=== PATIENT | female | born 1940 | race Caucasian/White ===

== ENCOUNTER 2016-06-19 10:09 | Emergency (ER) | payer MEDICARE, OTHER ==
[~2016-06-19] VITALS: Ht 149.9 cm; Wt 61.7 kg
[~2016-06-19 10:09] MED LIST: ACET325T9 PO; ALBU2.5V5 NEB; AMLO5TAB4 PO; AMOX1TAB11 PO; ATOR20TA PO; CEFP200T PO; DABI150C PO; DIGO0.12 PO; DIGO125T PO; FERR325T72 PO; FURO-68 PO; FURO20TA3 PO; FURO80TA3 PO; FURO80TA72 PO; GLIP5TAB10 PO; IPRA3AMP IH; LORA0.5T PO; LORA0.5T96 PO; LOSA25TA PO; METO25TA4 PO; METO25TA9 PO; NITR0.4T22 SL; PANT40TA3 PO; POTA20TA12 PO; POTA20TA4 PO; POTASSIUM CHLO10 MEQ PO; PRED-220 PO; PRED20TA PO; RANI150C PO; SERT50TA PO; SIMV10TA3 PO; TIOT18CA IH; TRAZ50TA15 PO
[2016-06-19 10:13] VITALS: BP 135/54
--- NOTE | 2016-06-19 10:40 | PHYS DOC ---
Past Medical History Past Medical History: A-Fib, Anxiety, CHF, COPD, Diabetes-Type II, High Cholesterol, Heart Disease, Hypertension, SC, MRSA Past Surgical History: Cholecystectomy, Hysterectomy, Tonsillectomy, Other Additional Past Surgical Histo: Bowel resection,Cardiac Cath with stents. Additional Information: SMOKES 1 PPD Alcohol Use: None Drug Use: None Adult General Chief Complaint Chief Complaint: LOWER BACK PAIN OR INJURY [facility] HPI Patient is a 75 year old female presents emergency Department today with complaint of low back pain for the past 2 days. 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 Patient has had previous back surgeries in the past. The last was for vertebral plasty approximately 3 years ago. Patient denies radiation of the pain. She denies saddle anesthesia or incontinence of urine and bowel. Patient denies any history of traumatic spinal column fractures or spinal cord injuries. She has no additional complaints or concerns at this time. Review of Systems Review of Systems Constitutional: Denies fever or chills [] Eyes: Denies change in visual acuity, redness, or eye pain [] HENT: Denies nasal congestion or sore throat [] Respiratory: Denies cough or shortness of breath [] Cardiovascular: No additional information not addressed in HPI [] GI: Denies abdominal pain, nausea, vomiting, bloody stools or diarrhea [] : Denies dysuria or hematuria [] Musculoskeletal: Denies back pain or joint pain [] Integument: Denies rash or skin lesions [] Neurologic: Denies headache, focal weakness or sensory changes [] Endocrine: Denies polyuria or polydipsia [] Current Medications Current Medications Current Medications Medications (Trade) Dose Ordered Sig/Karyna Start Time Stop Time Status Last Admin Dose Admin Tramadol HCl (Ultram) 50 mg 1X ONCE 06/19/16 11:15 06/19/16 11:16 DC 06/19/16 10:43 50 MG Allergies Allergies Allergies Coded Allergies Type Severity Reaction Last Updated Verified aspirin Allergy Intermediate OK with 81mg dose 06/04/15 Yes hydrocodone Allergy Intermediate tramadol ok 06/19/16 Yes iodine Allergy Intermediate 04/10/15 Yes lisinopril Allergy Intermediate 04/10/15 Yes metformin Allergy Intermediate 04/10/15 Yes I S O L A T I O N *CONTACT* Allergy Unknown 04/12/15 Yes Physical Exam Physical Exam Constitutional: Well developed, well nourished, mild distress, non-toxic appearance. Patient's heart of hearing. Patient sitting upright on the side of the bed. Patient's daughter is at the bedside with her. HENT: Normocephalic, atraumatic, bilateral external ears normal, oropharynx moist, no oral exudates, nose normal. [] Eyes: PERRLA, EOMI, conjunctiva normal, no discharge. [] Neck: Normal range of motion, no tenderness, supple, no stridor. [] Cardiovascular:Heart rate regular rhythm, no murmur [] Lungs & Thorax: Bilateral breath sounds clear to auscultation [] Abdomen: Bowel sounds normal, soft, no tenderness, no masses, no pulsatile masses. [] Skin: Warm, dry, no erythema, no rash. [] Back: Patient's back is normal in appearance without any overlying skin lesions suggestive of shingles. Chest tenderness to palpation of bilateral paraspinous soft tissues at the level of L3-S1. Patient complains of this pain is also in bilateral hips. There is no palpable defect, deformity or spasm. Extremities: No tenderness, no cyanosis, no clubbing, ROM intact, no edema. Lower extremities are without dystrophic changes. Strength is equal and symmetric bilaterally. Neurologic: Alert and oriented X 3, normal motor function, normal sensory function, no focal deficits noted. [] Psychologic: Affect normal, judgement normal, mood normal. [] Current Patient Data Vital Signs Vital Signs Date Time Temp Pulse Resp B/P Pulse Ox O2 Delivery O2 Flow Rate FiO2 06/19/16 10:43 20 Room Air 06/19/16 10:13 97.6 78 135/54 94 97.6 EKG EKG [] Radiology/Procedures Radiology/Procedures [facility] [address] [place], [place] [id number] IMAGING REPORT Signed PATIENT: ADRI LITTLE ACCOUNT: [id number] : 1940 LOCATION: ER AGE: 75 SEX: F EXAM STATUS: REG ER ORD. PHYSICIAN: ARMIN HOWE REASON: pain for 2 days after picking up an item PROCEDURE: LUMBAR SPINE 2-3V Indication pain. AP and lateral views of the lumbar spine were obtained as well as a coned view targeted to the lumbosacral junction. Note is made of a previous plain film examination 04/20/2009. Hypoplastic changes are noted at L3. Sacral plasty changes are additionally noted. There is significant compression of L1 similar to an examination 06/03/2015. A definite acute finding is not seen in the lumbar spine on plain films. Extensive vascular calcification is noted. There is chronic deformity noted associated with the right ischium. IMPRESSION: Chronic changes. No acute finding seen DICTATED and SIGNED BY: NOA MOTA MD DATE: 06/19/16 1120 CC: ARMIN HOWE; MOR MALCOLM MD; NON,STAFF ~ ] Course & Med Decision Making Course & Med Decision Making Pertinent Labs and Imaging studies reviewed. (See chart for details) [] Dragon Disclaimer Dragon Disclaimer This electronic medical record was generated, in whole or in part, using a voice recognition dictation system. Departure Departure Impression: Primary Impression: Lumbosacral strain Disposition: HOME, SELF-CARE Condition: GOOD Referrals: MOR MALCOLM MD (PCP) Patient Instructions: Lumbosacral Strain Additional Instructions: 1. The x-rays of your back today show no broken bones. There are chronic changes /arthritis. 2. Take the medication as prescribed. 3. Review the discharge instructions provided for self-care and reasons to return to the emergency department. 4. Follow-up with your primary care doctor within the next 5-7 days. Scripts Cyclobenzaprine Hcl 5 Mg Tablet5 Mg PO BID muscle relaxer #10 TAB Prov:ARMIN HOWE 06/19/16 Tramadol Hcl 50 Mg Tablet1 Tab PO PRN Q6HRS #10 TAB Prov:ARMIN HOWE 06/19/16 Problem Qualifiers Primary Impression: Lumbosacral strain Encounter type: initial encounter Qualified Code: S39.012A - Strain of muscle, fascia and tendon of lower back, initial encounter ARMIN HOWE June 19, 2016 10:40
[2016-06-19] MEDS ORDERED: traMADol 50 MG TABLET PO ONE (11:15)
--- NOTE | 2016-06-19 11:28 | RAD ---
Indication pain. AP and lateral views of the lumbar spine were obtained as well as a coned view targeted to the lumbosacral junction. Note is made of a previous plain film examination 04/20/2009. Hypoplastic changes are noted at L3. Sacral plasty changes are additionally noted. There is significant compression of L1 similar to an examination 06/03/2015. A definite acute finding is not seen in the lumbar spine on plain films. Extensive vascular calcification is noted. There is chronic deformity noted associated with the right ischium. IMPRESSION: Chronic changes. No acute finding seen
[2016-06-19] MEDS ORDERED: TRAM50TA PO (11:41)
[2016-06-19] MEDS ORDERED: CYCL5TAB PO (11:41)
[2016-07-18] MEDS ORDERED: ACET500T55 PO (10:33)
[2016-07-18] MEDS ORDERED: POTA20TA4 PO (10:33)
[2016-07-18] MEDS ORDERED: LORA0.5T96 PO (10:33)
[2016-07-18] MEDS ORDERED: SERT50TA8 PO (10:33)
== END 2016-06-19 12:03 | disposition home or self-care (01) ==
LOC: ER 10:09
DX: S39.012A Strain of muscle, fascia and tendon of lower back, initial encounter (principal); I11.0 Hypertensive heart disease with heart failure; I50.9 Heart failure, unspecified; E11.9 Type 2 diabetes mellitus without complications; E78.00 Pure hypercholesterolemia, unspecified; I48.91 Unspecified atrial fibrillation; Z86.14 Personal history of Methicillin resistant Staphylococcus aureus infection; I25.2 Old myocardial infarction; J44.9 Chronic obstructive pulmonary disease, unspecified; F41.9 Anxiety disorder, unspecified; F17.200 Nicotine dependence, unspecified, uncomplicated; Z95.5 Presence of coronary angioplasty implant and graft; Z90.49 Acquired absence of other specified parts of digestive tract; Z90.710 Acquired absence of both cervix and uterus; Z88.6 Allergy status to analgesic agent; Z88.5 Allergy status to narcotic agent; Z91.041 Radiographic dye allergy status; Z88.8 Allergy status to other drugs, medicaments and biological substances
CPT/HCPCS: 72100; 99284

== ENCOUNTER → 2016-06-28 | Outpatient (CLI) | payer MEDICARE, OTHER ==
[2016-06-19 10:13] VITALS: BP 135/54
[~2016-06-28] MED LIST changes: +CYCL5TAB PO; -NITR0.4T22 SL; +NITR0.4T6 SL; +TRAM50TA PO
--- NOTE | 2016-06-28 16:42 | RAD ---
PROCEDURE MRI lumbar spine without contrast HISTORY Chronic low back pain TECHNIQUE Multiplanar, multi sequential non contrast MR imaging was performed of the lumbar spine. COMPARISON There is no previous MRI lumbar spine exam available, correlation made with June 03, 2015 CT exam FINDINGS There again has been vertebroplasty at L3. There is again old superior L1 compression fracture with osseous retropulsion of the superior margin, mild indentation upon the ventral thecal sac. There is acute T11 compression fracture with associated edema signified by STIR hyperintense and T1 hypointense signal, negligible osseous retropulsion without significant spinal stenosis. There is moderate narrowing greater posteriorly of the L5-S1 intervertebral disc space. Conus terminates at L1-2. There is diffuse irregularity of the abdominal aorta. There is diffuse nonspecific edema of the posterior subcutaneous fat of the lower back, no defined focal fluid collection in this region. Right kidney is very atrophic with cortical thinning. T12-L1: Osseous retropulsion of L1 slightly indents the ventral thecal sac. Spinal canal is not significantly narrowed. There is mild buckling of the ligamentum flavum. Neural foramina are adequate. L1-L2: There is mild buckling of the ligamentum flavum. There is negligible bulge. Neural foramina and spinal canal are adequate. L2-3: There is mild facet degenerative change and buckling of the ligamentum flavum. There is minimal disc osteophyte complex in the inferior left neural foramen. Neural foramina are adequate. There is mild narrowing of the far lateral recesses greater on the left. L3-4: There is left laminectomy defect. Spinal canal is adequate. There is again severe narrowing of the neural foramina bilaterally greater on the left. Spinal canal is adequate. L4-5: There is mild buckling of the ligamentum flavum. There is mild narrowing of the far lateral recesses. There is mild narrowing of the left neural foramen. L5-S1: There is mild to moderate buckling of the ligamentum flavum. There is minimal posterior bulge. There is mild narrowing of the far lateral recesses bilaterally greater on the right. There is mild to moderate right and mild left neural foramina compromise. There has been right sacroplasty. IMPRESSION 1. There is acute superior T11 compression fracture, negligible osseous retropulsion without spinal stenosis. There are old fractures of L3 and L1 as seen previously. There has been right sacroplasty and vertebroplasty at L3. 2. There is again severe narrowing of the L3-4 neural foramina greater on the left. 3. There is no significant lumbar spinal stenosis, mild lateral recess stenosis as stated. Electronically signed by: Leon Gonzalez MD (June 28, 2016 16:41:16)
== END | disposition home or self-care (01) ==
LOC: MRI 14:52
PROVIDERS: ATTEND Internal Medicine
DX: M54.5 Low back pain (principal)
CPT/HCPCS: 72148

== ENCOUNTER 2016-07-17 09:41 | Observation (INO) | payer MEDICARE, OTHER ==
[~2016-07-17] VITALS: Ht 149.9 cm; Wt 59.9 kg
[~2016-07-17 09:41] MED LIST changes: +NITR0.4T22 SL; -NITR0.4T6 SL
[2016-07-17 10:31] LABS: BASO % 1 % (0-3); EOS % 3 % (0-3); HEMATOCRIT 40.1 % (36.0-47.0); HEMOGLOBIN 12.4 g/dL (12.0-15.5); LYMPH # 1.8 x10^3/uL (1.0-4.8); LYMPH % 20 % (24-48); MEAN CORPUSCULAR HEMOGLOBIN 23 pg (25-35); MEAN CORPUSCULAR HGB CONC 31 g/dL (31-37); MEAN CORPUSCULAR VOLUME 74 fL (79-100); MONO % 6 % (0-9); NEUT % 71 % (31-73); PLATELET COUNT 183 x10^3/uL (140-400); RED BLOOD COUNT 5.43 x10^6/uL (3.50-5.40); RED CELL DISTRIBUTION WIDTH 21.2 % (11.5-14.5)
[2016-07-17 10:46] LABS: INR 1.2 (0.8-1.1); PROTHROMBIN TIME PATIENT 14.8 SEC (11.7-14.0)
[2016-07-17] MEDS ORDERED: LIDOCAINE 1% / SOD BICARB 8.4% 20 ML VIAL. IJ ONE ×2 (11:08→11:50)
[2016-07-17] MEDS ORDERED: GADOBUTROL 7.5 MMOL/7.5 ML VIAL ONE (11:08)
[2016-07-17 11:11] VITALS: BP 120/69
--- NOTE | 2016-07-17 11:22 | PDOC1 ---
IR Pre-Procedure H&P-Dr. Bailey H&P Update No significant change from my IR OP consult H&P done 07/10/16. MRI T-spine completed earlier this AM---apart from T11, no additional acute thoracic compression fracture. Scheduled for T11 vertebral augmentation in IR with anesthesia late morning today. Patient has held Pradaxa as requested. CHAVO MOREAU MD July 17, 2016 11:22
[2016-07-17] MEDS ORDERED: MIDAZOLAM HCL/PF 2 MG/2 ML VIAL. ONE (11:30)
[2016-07-17] MEDS ORDERED: LIDOCAINE 2% PF Vial for OR 5 ML VIAL. ONE (11:30)
[2016-07-17] MEDS ORDERED: PROPOFOL 60 ML IV ONE (11:30)
[2016-07-17] MEDS ORDERED: KETAMINE HCL 500 MG/10 ML VIAL. ONE (11:31)
[2016-07-17] MEDS ORDERED: PHENYLEPHRINE in 0.9% NACL PF 1 MG/10 ML DISP.SYRIN. IV ONE (11:31)
--- NOTE | 2016-07-17 11:39 | RAD ---
EXAM: Thoracic spine MRI without contrast. HISTORY: Compression fracture. TECHNIQUE: Multiplanar, multisequence magnetic resonance imaging of the thoracic spine was performed without contrast. COMPARISON: 06/03/2015 FINDINGS: There is a moderate acute or subacute compression fracture of T11 with approximately 50 percent loss of vertebral body height. There is minimal retropulsion of the posterior inferior cortex into the central canal, measuring 3 mm. There is a chronic moderate to severe compression fracture of L1 with approximately 75 percent loss of anterior vertebral body height. There is 5 mm retropulsion of the cortex into the central canal, resulting in mild central canal stenosis. There is a chronic mild anterior superior endplate depression at T1, likely degenerative or the sequela of remote injury. There is no suspicious osseous lesion. There is cervical kyphosis and multilevel listhesis at the cervical levels. There is advanced degenerative endplate remodeling at all cervical levels, resulting in foraminal stenosis. This is incompletely evaluated on the current field of view. There is a small right pleural effusion. There is cardiomegaly. At T7-T8, there is a shallow posterior central disc protrusion. There is no stenosis. At T9-T10, there is a shallow left paracentral disc protrusion. There is mild facet arthropathy. There is hypertrophy of the ligament of flavum. There is mild bilateral foraminal stenosis. There is mild central canal stenosis. There is suggestion of T2 hyperintensity within the spinal cord at this level which is not confirmed on axial images and likely due to artifact rather than myelomalacia or edema. At T10-T11, there is a posterior central to left paracentral disc protrusion. There is mild facet arthropathy. There is hypertrophy of the ligament of flavum. There is mild central canal stenosis. At T11-T12, there is retropulsion of the posterior left paracentral cortex resulting in slight deformation of the ventral aspect of the spinal cord and mild central canal stenosis. There is also facet arthropathy and hypertrophy of the ligamentum flavum. IMPRESSION: 1. Moderate acute or subacute compression fracture of T11 with minimal retropulsion of the cortex into the central canal, contributing to mild central canal stenosis. 2. Moderate to severe chronic compression fracture of L1 with mild retropulsion of the cortex into the central canal, contributing to mild central canal stenosis. 3. Minimal chronic anterior superior endplate depression at T1, likely degenerative or the sequela of remote injury. 4. Multilevel degenerative changes of the thoracic spine, resulting in central canal stenosis as described above. 5. Degenerative change within the cervical spine, incompletely evaluate on the current exam. 6. Small right pleural effusion and cardiomegaly. Electronically signed by: Janel Nunez MD (07/17/2016 11:36 AM)
[2016-07-17 11:54] LABS: ANISOCYTOSIS MOD; HYPOCHROMIA MOD; OVALOCYTES PRESENT; PLT ESTIMATE ADEQUATE (ADEQUATE)
[2016-07-17] MEDS ORDERED: GADOBUTROL 7.5 MMOL/7.5 ML VIAL IV ONE (12:00)
--- NOTE | 2016-07-17 12:37 | PDOC ---
Exam Tunnel Heading Inspector Tunnel Heading Inspector Shelia Records Associate Records Associate Nathaniel Perez Pre-Procedure Diagnosis Pre-Procedure Diagnosis Recent osteoporotic T11 compression, with severe low thoracic back pain Post-Procedure Diagnosis Post-Procedure Diagnosis Same Procedure Performed Procedure Performed Fluoro guided T11 vertebral augmentation Type of Anesthesia Type of Anesthesia MAC by anesthesia Estimated Blood Loss EBL: Minimal Condition of Patient Condition of Patient Hemodynamically stable. No apparent complication. Disposition Disposition From IR to PACU. Home from PACU post recovery, if no problems. F/u with PCP. Full report to follow. CHAVO MOREAU MD July 17, 2016 12:37
[2016-07-17] MEDS ORDERED: fentaNYL PF VIAL 100 MCG/2 ML VIAL ONE (12:49)
[2016-07-17] MEDS: fentaNYL PF VIAL 100 MCG/2 ML VIAL IV PRN ×2 (12:52→13:34)
[2016-07-17] MEDS ORDERED: LIDOCAINE 1% 1 ML SYRINGE. ID PRN (13:00)
[2016-07-17] MEDS ORDERED: fentaNYL PF VIAL 100 MCG/2 ML VIAL IV PRN (13:00)
[2016-07-17] MEDS ORDERED: IV RINGERS,LACTATED 1000ML 1,000 ML IV SCH (13:00)
[2016-07-17] MEDS ORDERED: PROCHLORPERAZINE 10 MG/2 ML VIAL. IV PRN (13:00)
[2016-07-17] MEDS ORDERED: ONDANSETRON PF 4 MG/2 ML VIAL. IV PRN (13:00)
[2016-07-17] MEDS: KETOROLAC TROMETHAMINE 30 MG/ML INJ. IV PRN ×3 (14:07→17:56)
[2016-07-17 14:45] VITALS: BP 147/69
[2016-07-17 14:50] VITALS: BP 147/69
--- NOTE | 2016-07-17 15:13 | PDOC ---
Provider Note Provider Note IR Note: S/P T11 kyphoplasty---the procedure was technically uneventful, with very good filling of T11 vertebral body, without extraosseous extension of opacified cement. However, Sravani remained in significant low thoracic back pain in PACU post recovery from MAC anesthesia. Therefore, overnight observation admit for pain control was considered indicated. Dr Harvey was notified---he was willing to accept admission. Sravani was transported from PACU to [facility] in hemodynamically stable condition. IR will follow. CHAVO MOREAU MD July 17, 2016 15:13
[2016-07-17] MEDS ORDERED: NITROGLYCERIN SUBLINGUAL 0.4 MG BOTTLE OF 25. SL PRN ×2 (15:45→16:45)
[2016-07-17] MEDS ORDERED: ACETAMINOPHEN 325 MG TABLET. PO PRN ×2 (15:45→16:45)
[2016-07-17] MEDS ORDERED: MAGNESIUM HYDROXIDE 2,400 MG/30 ML ORAL.SUSP. PO PRN (15:45)
--- NOTE | 2016-07-17 15:51 | RAD ---
Fluoro guided T11 kyphoplasty Indication: 75-year-old female with recent osteoporotic T12 vertebral body compression fracture, with severe low thoracic back pain. Fluoro time: 16.1 minutes Kerma-Area Product: 21 Gycm2 Anesthesia: Mac anesthesia was provided by the department of anesthesiology. Antibiotic: A single dose of Ancef was administered within 1 hour of the procedure start time. Consent: The procedure was explained in its entirety to the patient and/or the patient's designated outside dealer sales representative by a member of the treatment team. This included a discussion of risks and benefits and commonly accepted alternatives to the procedure, as well as expected consequences of no treatment at all. Discussion of risks included, but was not limited to, those that are most frequent and those that are rare, but possibly severe or life-threatening, as well as the possibility of unforeseen complications. Sterility: All elements of maximal sterile barrier technique, hand hygiene, skin preparation, and, if ultrasound was used, sterile ultrasound technique were followed. Procedure: Informed was obtained from the patient. She was placed prone on the angiography table. Midline low thoracic spine was prepped and draped in the usual sterile fashion, utilizing all elements of maximal sterile barrier technique, as described above. Mac anesthesia was provided by the department of anesthesiology. 1 gram Ancef was given IV, prophylactically. Using aseptic technique, local anesthesia, and direct fluoroscopic guidance a 10 gauge vertebral augmentation needle was successfully introduced into anterior midline of T11 vertebral body, via unilateral right transpedicular approach. A 15 mm vertebral augmentation balloon was then coaxially introduced through the needle, and was gently inflated under fluoroscopic control, creating a pocket suitable to accept vertebral augmentation cement. The balloon was then deflated and removed. Contrast opacified polymethylmethacrylate was then very slowly and carefully introduced through the vertebral augmentation needle, using strict fluoroscopic control. There was resulting good filling of the T11 vertebral body, without significant extraosseous extravasation of opacified cement. The needle was then removed and a sterile dressing was applied. Patient tolerated the procedure well, without apparent complication. She was transported from the angiography suite to the postanesthesia care unit in stable condition. Impression: Successful, uneventful fluoro guided T11 kyphoplasty , performed via unilateral right transpedicular approach, as described.
[2016-07-17] MEDS: ALBUTEROL SULFATE 2.5 MG/3 ML NEBU. NEB SCH ×2 (16:00→19:15)
[2016-07-17 16:42] LABS: CALCIUM 8.9 mg/dL (8.5-10.1); CREATININE 1.1 mg/dL (0.6-1.0); GFR 48.2; POTASSIUM 3.9 mmol/L (3.5-5.1)
[2016-07-17] MEDS ORDERED: ANTI-COAG MONITOR BY PHARMACY. MC PRN (17:00)
--- NOTE | 2016-07-17 17:02 | PDOC ---
Provider Note Provider Note history and physical dictated # [id number] MOR MALCOLM MD July 17, 2016 17:02
[2016-07-17] MEDS: POTASSIUM CHLORIDE 20 MEQ TABLET.ER. PO SCH (18:17)
[2016-07-17] MEDS: ACETAMINOPHEN 500 MG TABLET PO SCH ×2 (18:17→22:10)
[2016-07-17 19:00] VITALS: BP 82/47
[2016-07-17] MEDS: IPRATRPIUM/ALBUTEROL 0.5/2.5MG 3 ML NEBU. NEB SCH (19:15)
--- NOTE | 2016-07-17 19:19 | HP ---
ADMIT DATE: 07/17/2016 THE PATIENT'S ROOM: 404. HISTORY OF PRESENT ILLNESS: The patient is a 75-year-old white female, who underwent a T11 kyphoplasty today by Dr. Bass for an acute/subacute T11 vertebral compression fracture. She does have a history of osteoporosis. She is complaining of back pain and MRI of the lumbar spine showed that she had an acute T11 vertebral compression fracture. She had a thoracic MRI also done today which showed no other acute fracture, besides the T11 vertebral compression fracture, but she does have thoracic spondylosis and old chronic L1 vertebral compression fracture. She tolerated the procedure well today, which was a T11 kyphoplasty, but was still complaining of pain despite receiving 25 mcg of fentanyl. She usually does not do well with narcotics or tramadol also causes delirium. At this time, during my examination, she says her pain is much better and she feels a lot better and has less back pain since of the kyphoplasty was done earlier today. She was admitted to the hospital to the observation, because of increased back pain following the procedure. ALLERGIES AND INTOLERANCES: METFORMIN, LISINOPRIL, IODINE, HYDROCODONE AND ASPIRIN. SHE ALSO HAS HAD DELIRIUM WITH TRAMADOL AND ALSO NARCOTICS. MEDICATIONS: Prior to admission include albuterol nebulizer treatments q.i.d.; albuterol inhaler 1-2 puffs every 4 hours p.r.n., when she is away from home aspirin 81 mg every day; atorvastatin 20 mg every day; Furosemide 80 mg b.i.d.; glipizide 2.5 mg every day; lorazepam 0.5 mg t.i.d.; metoprolol succinate 25 mg every day; nitroglycerin 0.4 mg sublingual p.r.n.; potassium chloride 20 mEq 1 tablet t.i.d.; Pradaxa 150 mg b.i.d., which was held 5 days before the kyphoplasty; Protonix 40 mg every day; Spiriva 1 puff every day and sertraline 50 mg every day. PAST MEDICAL HISTORY: Significant for diabetes mellitus type 2, with microalbuminuria and diabetic nephropathy. She has a history of atrial fibrillation for which she takes Pradaxa. She has diabetic nephropathy, chronic diastolic congestive heart failure, chronic respiratory failure with hypoxia and also has a history of fracture in her right ilium in the past. She does have osteoporosis. She also has hyperlipidemia, coronary artery disease, hypertension, gastroesophageal reflux disease, chronic obstructive pulmonary disease. She has had a history of left renal artery stenosis treated with the angioplasty and stent in 2010. She has left subclavian artery stenosis. She also had renal artery angioplasty and stent for right renal artery stenosis in the past. She had a right hemicolectomy for a benign tubular adenoma in 2011. She had 3 C-sections. She had a left external iliac artery angioplasty and stent in 2010, unilateral oophorectomy, cataract extraction, cholecystectomy, hysterectomy and tonsillectomy. SOCIAL HISTORY: She does not drink alcohol. She did smoke in the past, but quit. She is on oxygen 3 liters per nasal cannula continuously. REVIEW OF SYSTEMS: GENERAL: Denies any fever, chills or sweats. CARDIOVASCULAR: No chest pain. PULMONARY: No cough or shortness of breath. GASTROINTESTINAL: No constipation. SKIN: No rashes. NEUROLOGIC: No focal weakness. ENDOCRINE: She has diabetes mellitus. The rest of review of systems reviewed are negative except as stated in history of present illness. PHYSICAL EXAMINATION: VITAL SIGNS: Temperature 97.5 degrees, apical pulse is 75, respiratory rate 18, blood pressure 147/69, oxygen saturation 93% on 3 liters per nasal cannula. HEENT: Eyes: Gaze is conjugate. Extraocular muscles are intact. Mouth is symmetrical. NECK: No cervical lymphadenopathy or thyroid enlargement. HEART: Reveals an S1, S2. There is no S3 or murmur. LUNGS: Clear with decreased breath sounds. ABDOMEN: Soft, with no hepatosplenomegaly, masses or tenderness. BACK: Examination of her back shows a dry dressing over the area that she had a T11 kyphoplasty. EXTREMITIES: Lower extremities without edema. SKIN: No rashes. NEUROLOGIC: Revealed no facial weakness. Lower extremities, able to dorsum and plantar aspect of both feet, bend her knees equal symmetrically. She has no focal weakness in the upper extremities. LABORATORY DATA: On 07/17/2016, her white count was 9.0, hemoglobin 12.4, platelet count 183,000, polys 71 and lymphocytes 20. INR 1.2. Blood sugar of 99. ASSESSMENT: 1. Intractable back pain, which has improved. 2. T11 kyphoplasty for acute/subacute T11 vertebral compression fracture. 3. Osteoporosis. 4. Diabetes mellitus type 2 with microalbuminuria. 5. Atrial fibrillation, currently off the Pradaxa for further procedure. 6. Diabetic nephropathy with microalbuminuria. 7. Chronic obstructive pulmonary disease. 8. Chronic respiratory failure with hypoxia. 9. Chronic diastolic congestive heart failure. 10. History of left subclavian artery stenosis. PLAN: At this time is to order Tylenol 500 mg q.i.d. and 325 mg every 4 hours p.r.n., ____ not tolerate tramadol and narcotics. We would avoid nonsteroidal anti-inflammatory drugs with her chronic kidney disease and Pradaxa. Dr. Bass will be contacted by the nursing staff ____ resume her Pradaxa for atrial fibrillation. Lidoderm patch has been ordered. Certainly for back pain ____ we can dismiss her tomorrow. The patient's daughter at bedside and concur with the plan. We will check a basic metabolic profile, put her on a diabetic diet. MOR MALCOLM MD DR: JOSEMANUEL/harry JOB#: [id number] / [id number]
[2016-07-17] MEDS ORDERED: IV NORMAL SALINE 1000ML BAG 1,000 ML IV SCH (20:15)
[2016-07-17] MEDS: FUROSEMIDE 80 MG TABLET. PO SCH (21:00)
[2016-07-17] MEDS ORDERED: FUROSEMIDE 40 MG TABLET. PO SCH (21:00)
[2016-07-17] MEDS: LORazepam 0.5 MG TABLET PO SCH (21:00)
[2016-07-17] MEDS ORDERED: ATORVASTATIN CALCIUM 20 MG TABLET PO SCH ×2 (21:00)
[2016-07-17] MEDS ORDERED: LORazepam 0.5 MG TABLET PO SCH (21:00)
[2016-07-17] MEDS ORDERED: DABIGATRAN ETEXILATE 150 MG CAPSULE. PO SCH (21:00)
[2016-07-17 23:07] VITALS: BP 104/89
[2016-07-18 03:00] VITALS: BP 116/54
[2016-07-18 06:55] LABS: BASO % 0 % (0-3); EOS % 3 % (0-3); HEMATOCRIT 35.5 % (36.0-47.0); HEMOGLOBIN 10.8 g/dL (12.0-15.5); LYMPH # 1.4 x10^3/uL (1.0-4.8); LYMPH % 21 % (24-48); MEAN CORPUSCULAR HEMOGLOBIN 23 pg (25-35); MEAN CORPUSCULAR HGB CONC 30 g/dL (31-37); MEAN CORPUSCULAR VOLUME 76 fL (79-100); MONO % 7 % (0-9); NEUT % 69 % (31-73); PLATELET COUNT 129 x10^3/uL (140-400); WHITE BLOOD COUNT 6.9 x10^3/uL (4.0-11.0)
[2016-07-18 07:15] VITALS: BP 118/73
[2016-07-18] MEDS ORDERED: PANTOPRAZOLE 40 MG TABLET.DR. PO SCH ×2 (07:30)
[2016-07-18] MEDS: IPRATRPIUM/ALBUTEROL 0.5/2.5MG 3 ML NEBU. NEB SCH ×2 (07:55→11:11)
[2016-07-18] MEDS ORDERED: ASPIRIN ENTERIC COATED 81 MG TABLET.DR. PO SCH (08:00)
[2016-07-18] MEDS ORDERED: glipiZIDE 5 MG TABLET PO SCH ×2 (08:00)
--- NOTE | 2016-07-18 08:45 | ACF ---
Admission Forms Criteria MUSCULOSKELETAL DISEASE GRG Clinical Indications for Admission to Inpatient Care (Place 'X' for any and all applicable criteria): Hospital admission is needed for appropriate care of the patient because of 1 or more of the following: [X]I. Fracture, dislocation, or other musculoskeletal injury requiring inpatient care(medical) as indicated by 1 or more of the following(4)(5)(6)(7) [X]a) Vertebral fracture requiring observation for instability or neurologic compromise (8) [ ]b) Compartment syndrome (proven or cannot be ruled out during observation level of care) (9) [ ]c) Limb-threatening injury [ ]d) Major injury requiring inpatient stabilization such as traction initiation or external fixation before internal fixation or closure of complex or open fracture [ ]e) Major injury requiring inpatient treatment after emergency or observation level care (as appropriate) [ ]f) Severe pain requiring acute inpatient management [ ]g) Injury with suspicion of abuse or neglect (eg., child, dependent elderly) [ ]II. Newly diagnosed or suspected bone, joint, or orthopedic device infection (e.g., osteomyelitis, septic arthritis) needing 1 or more of the following(1)(2)(3) [ ]a) IV antibiotics that cannot be initiated in other than inpatient setting (e.g., patient too unstable or home infusion not available) [ ]b) Device removal or replacement [ ]c) Bone or soft tissue debridement [ ]d) Joint drainage (drain placement or repetitive aspirations) [ ]III. Severe rheumatologic disease (e.g., systemic lupus erythematosus, rheumatoid arthritis) with complications or comorbidities (Also use Optimal Recovery Care Criteria or General Recovery Criteria as appropriate on the basis of predominant condition), including 1 or more of the following( 10)(11)(12)(13) [ ]a) Severe infection (e.g., SCIENTIFIC RECRUITER infection, sepsis) (14) [ ]b) Respiratory complications, including 1 or more of the following : [ ]i) Pleural effusion with respiratory compromise [ ]ii) Pulmonary hypertension with congestive failure [ ]iii) Respiratory failure [ ]iv) Pulmonary hemorrhage (15) [ ]c) Hematologic disease, including 1 or more of the following: [ ]i) Coagulopathy with bleeding [ ]ii) Thrombosis with hypercoagulable state [ ]iii) Thrombotic thrombocytopenic purpura [ ]d) Cerebritis with seizures, psychosis, or other severe abnormalities [ ]e) Vertebral destruction with monitoring needed for cervical myelopathy& possible respiratory compromise [ ]f) Exacerbation that requires inpatient treatment (e.g., intravenous immunosuppression) (16) [ ]g) Acute renal failure [ ]h) Cerebritis with seizures, psychosis, Altered mental status, or other neurologic abnormalities [ ]i) Pericardial effusion with tamponade [ ]j) Vertebral destruction, with monitoring needed for cervical myelopathy and possible respiratory compromise [ ]IV. Severe vasculitis with complications or comorbidities (Also use Optimal Recovery Care Criteria General Recovery Criteria as appropriate on the basis of predominant condition), including 1 or more of the following(11)(12)(17)(18)(19)(20) [ ]a) Exacerbation that requires inpatient treatment (e.g., intravenous immunosuppression) (19)(21) [ ]b) Pulmonary hemorrhage (15) [ ]c) SCIENTIFIC RECRUITER vasculitis with seizures, psychosis, Altered mental status that is severe or persistent, or other severe abnormalities (22) [ ]d) Cerebral infarction [ ]e) Gastrointestinal ischemia [ ]f) Gangrene or threatened amputation [ ]g) Renal failure (16) [ ]h) Other significant complications of vasculitis ( eg., tissue or organ ischemia, organ dysfunction ) [ ]V. Severe myopathy as indicated by 1 or more of the following (28)(29) [ ]a) New onset of airway compromise or inability to swallow [ ]b) Respiratory deterioration with observation needed for impending respiratory failure [ ]c) Exacerbation that requires inpatient treatment (e.g., intravenous immunosuppression) [ ]. Severe crystal gout (arthropathy) indicated by 1 or more of the following (23)(24) [ ]a) Severe pain requiring acute inpatient management [ ]b) Exacerbation that requires inpatient treatment (e.g., intravenous treatment) [ ]VII.Rhabdomyolysis and 1 or more of the following (25)(26)(27) [ ]a) Acute renal failure [ ]b) Need for intravenous hydration after emergency or observation level care (as appropriate) [ ]c) Inability to maintain oral hydration [ ]d) Change in mental status [ ]e) Electrolyte abnormality that remains after emergency or observation level care (as appropriate) [ ]VIII Post amputation complication, as indicated by ANY ONE of the following [ ]a) Infection [ ]b) Dehiscence [ ]c) Myodesis failure [ ]IX. Severe pain requiring acute inpatient management due to musculoskeletal condition [ ]X. Musculoskeletal Disease and ALL of the following: [ ]a) Symptom or finding for which emergency and observation care have failed or are not considered appropriate (Use General Criteria: Observation Care as appropriate) [ ]b) Presence of ANY ONE of the following [ ]i) A General Admission Criteria [ ]ii) A Pediatric General Admission Criteria The original [facility] [employer] content created by [facility] has been revised. The portions of the content which have been revised are identified through the use of italic text or in bold, and [facility] has neither reviewed nor approved the modified material. All other unmodified content is copyright [facility]. Please see references footnoted in the original [facility] edition 2016 Admission Criteria Met?: Yes KEYSHA BENITEZ July 18, 2016 08:45
[2016-07-18] MEDS ORDERED: LIDOCAINE (700MG/PATCH) PATCH. TD SCH (09:00)
[2016-07-18] MEDS ORDERED: DIGOXIN 125 MCG TABLET. PO SCH (09:00)
[2016-07-18] MEDS ORDERED: DABIGATRAN ETEXILATE 150 MG CAPSULE. PO SCH (09:00)
[2016-07-18] MEDS ORDERED: METOPROLOL SUCC 24HR ER 25 MG TAB.ER.24H. PO SCH (09:00)
[2016-07-18] MEDS ORDERED: METOPROLOL TART IMMED RELEASE 25 MG TABLET. PO SCH (09:00)
[2016-07-18] MEDS ORDERED: SERTRALINE 50 MG TABLET. PO SCH (09:00)
[2016-07-18] MEDS ORDERED: POTASSIUM CHLORIDE 20 MEQ TABLET.ER. PO SCH (09:00)
[2016-07-18] MEDS ORDERED: NON FORMULARY ITEM (Tiotropium Bromide (Spiriva) 1 CAP) IH SCH (09:00)
[2016-07-18] MEDS: POTASSIUM CHLORIDE 20 MEQ TABLET.ER. PO SCH (09:22)
[2016-07-18] MEDS: LORazepam 0.5 MG TABLET PO SCH (09:23)
[2016-07-18] MEDS: FUROSEMIDE 80 MG TABLET. PO SCH (09:24)
[2016-07-18] MEDS: ACETAMINOPHEN 500 MG TABLET PO SCH (09:25)
--- NOTE | 2016-07-18 10:03 | PDOC ---
Provider Note Provider Note IR Note: Day #1 s/p T11 kyphoplasty. Back pain "much better". Afebrile with VSS. MS back to baseline off narcotic pain meds. OK for discharge from IR perspective. CHAVO MOREAU MD July 18, 2016 10:03
--- NOTE | 2016-07-18 10:28 | PDOC ---
PROGRESS NOTES Subjective Subjective feels better. back pain much improved and says she ambulated to bathroom and ate breakfast. blood pressure ow once last night and was started on iv fluids and blood pressure okay today. says she is ready for dismissal today. lab reviewed. Objective Objective Vital Signs Date Time Temp Pulse Resp B/P (MAP) Pulse Ox O2 Delivery O2 Flow Rate FiO2 07/18/16 09:25 64 118/73 07/18/16 07:15 96 Nasal Cannula 2.0 07/18/16 07:15 97.3 18 97.3 Intake and Output 07/18/16 06:59 Intake Total 1230 ml Balance 1230 ml Intake Oral 980 ml IV Total 250 ml # Voids 1 Physical Exam Abdomen: Soft Heart: Normal S1, Normal S2 Extremities: No edema General: Alert HEENT: Atraumatic Lungs: Clear to auscultation Neuro: Normal speech Psych/Mental Status: Mental status NL Skin: No rashes Assessment Assessment 1. Intractable back pain, which has improved. 2. T11 kyphoplasty for acute/subacute T11 vertebral compression fracture. 3. Osteoporosis. 4. Diabetes mellitus type 2 with microalbuminuria. 5. Atrial fibrillation, currently off the Pradaxa for further procedure. 6. Diabetic nephropathy with microalbuminuria. 7. Chronic obstructive pulmonary disease. 8. Chronic respiratory failure with hypoxia. 9. Chronic diastolic congestive heart failure. 10. History of left subclavian artery stenosis. Plan Plan of Care resume pradaxa d/c iv fluids dismiss today Comment Review of Relevant I have reviewed the following items nikita (where applicable) has been applied. Labs Laboratory Tests Test 07/17/16 10:25 07/17/16 12:29 07/17/16 15:31 07/17/16 16:10 White Blood Count 9.0 x10^3/uL (4.0-11.0) Red Blood Count 5.43 x10^6/uL (3.50-5.40) Hemoglobin 12.4 g/dL (12.0-15.5) Hematocrit 40.1 % (36.0-47.0) Mean Corpuscular Volume 74 fL (79-100) Mean Corpuscular Hemoglobin 23 pg (25-35) Mean Corpuscular Hemoglobin Concent 31 g/dL (31-37) Red Cell Distribution Width 21.2 % (11.5-14.5) Platelet Count 183 x10^3/uL (140-400) Neutrophils (%) (Auto) 71 % (31-73) Lymphocytes (%) (Auto) 20 % (24-48) Monocytes (%) (Auto) 6 % (0-9) Eosinophils (%) (Auto) 3 % (0-3) Basophils (%) (Auto) 1 % (0-3) Neutrophils # (Auto) 6.4 x10^3uL (1.8-7.7) Lymphocytes # (Auto) 1.8 x10^3/uL (1.0-4.8) Monocytes # (Auto) 0.5 x10^3/uL (0.0-1.1) Eosinophils # (Auto) 0.3 x10^3/uL (0.0-0.7) Basophils # (Auto) 0.0 x10^3/uL (0.0-0.2) Platelet Estimate Adequate (ADEQUATE) Hypochromasia Mod Anisocytosis Mod Ovalocytes Present Prothrombin Time 14.8 SEC (11.7-14.0) Prothromb Time International Ratio 1.2 (0.8-1.1) Glucose (Fingerstick) 99 mg/dL (70-99) 117 mg/dL (70-99) Sodium Level 144 mmol/L (136-145) Potassium Level 3.9 mmol/L (3.5-5.1) Chloride Level 106 mmol/L (98-107) Carbon Dioxide Level 30 mmol/L (21-32) Anion Gap 8 (6-14) Blood Urea Nitrogen 10 mg/dL (7-20) Creatinine 1.1 mg/dL (0.6-1.0) Estimated GFR (Cockcroft-Gault) 48.2 Glucose Level 145 mg/dL (70-99) Calcium Level 8.9 mg/dL (8.5-10.1) Test 07/18/16 05:40 07/18/16 09:03 White Blood Count 6.9 x10^3/uL (4.0-11.0) Red Blood Count 4.70 x10^6/uL (3.50-5.40) Hemoglobin 10.8 g/dL (12.0-15.5) Hematocrit 35.5 % (36.0-47.0) Mean Corpuscular Volume 76 fL (79-100) Mean Corpuscular Hemoglobin 23 pg (25-35) Mean Corpuscular Hemoglobin Concent 30 g/dL (31-37) Red Cell Distribution Width 21.0 % (11.5-14.5) Platelet Count 129 x10^3/uL (140-400) Neutrophils (%) (Auto) 69 % (31-73) Lymphocytes (%) (Auto) 21 % (24-48) Monocytes (%) (Auto) 7 % (0-9) Eosinophils (%) (Auto) 3 % (0-3) Basophils (%) (Auto) 0 % (0-3) Neutrophils # (Auto) 4.7 x10^3uL (1.8-7.7) Lymphocytes # (Auto) 1.4 x10^3/uL (1.0-4.8) Monocytes # (Auto) 0.5 x10^3/uL (0.0-1.1) Eosinophils # (Auto) 0.2 x10^3/uL (0.0-0.7) Basophils # (Auto) 0.0 x10^3/uL (0.0-0.2) Glucose (Fingerstick) 162 mg/dL (70-99) Laboratory Tests Test 07/17/16 12:29 07/17/16 15:31 07/17/16 16:10 07/18/16 05:40 Glucose (Fingerstick) 99 mg/dL (70-99) 117 mg/dL (70-99) Sodium Level 144 mmol/L (136-145) Potassium Level 3.9 mmol/L (3.5-5.1) Chloride Level 106 mmol/L (98-107) Carbon Dioxide Level 30 mmol/L (21-32) Anion Gap 8 (6-14) Blood Urea Nitrogen 10 mg/dL (7-20) Creatinine 1.1 mg/dL (0.6-1.0) Estimated GFR (Cockcroft-Gault) 48.2 Glucose Level 145 mg/dL (70-99) Calcium Level 8.9 mg/dL (8.5-10.1) White Blood Count 6.9 x10^3/uL (4.0-11.0) Red Blood Count 4.70 x10^6/uL (3.50-5.40) Hemoglobin 10.8 g/dL (12.0-15.5) Hematocrit 35.5 % (36.0-47.0) Mean Corpuscular Volume 76 fL (79-100) Mean Corpuscular Hemoglobin 23 pg (25-35) Mean Corpuscular Hemoglobin Concent 30 g/dL (31-37) Red Cell Distribution Width 21.0 % (11.5-14.5) Platelet Count 129 x10^3/uL (140-400) Neutrophils (%) (Auto) 69 % (31-73) Lymphocytes (%) (Auto) 21 % (24-48) Monocytes (%) (Auto) 7 % (0-9) Eosinophils (%) (Auto) 3 % (0-3) Basophils (%) (Auto) 0 % (0-3) Neutrophils # (Auto) 4.7 x10^3uL (1.8-7.7) Lymphocytes # (Auto) 1.4 x10^3/uL (1.0-4.8) Monocytes # (Auto) 0.5 x10^3/uL (0.0-1.1) Eosinophils # (Auto) 0.2 x10^3/uL (0.0-0.7) Basophils # (Auto) 0.0 x10^3/uL (0.0-0.2) Test 07/18/16 09:03 Glucose (Fingerstick) 162 mg/dL (70-99) Medications Current Medications Gadobutrol (Gadavist) 7.5 mmol STK-MED ONCE .ROUTE ; Start 07/17/16 at 11:08; Stop 07/17/16 at 11:09; Status DC Lidocaine/Sodium Bicarbonate (Buffered Lidocaine 1%) 20 ml STK-MED ONCE IJ ; Start 07/17/16 at 11:08; Stop 07/17/16 at 11:09; Status DC Propofol 60 ml @ As Directed STK-MED ONCE IV ; Start 07/17/16 at 11:30; Stop at 11:31; Status DC Lidocaine HCl (Lidocaine Pf 2% Vial) 5 ml STK-MED ONCE .ROUTE ; Start 07/17/16 at 11:30; Stop 07/17/16 at 11:31; Status DC Midazolam HCl (Versed) 2 mg STK-MED ONCE .ROUTE ; Start 07/17/16 at 11:30; Stop 07/17/16 at 11:31; Status DC Phenylephrine HCl 1 mg STK-MED ONCE IV ; Start 07/17/16 at 11:31; Stop 07/17/16 at 11:32; Status DC Ketamine HCl 500 mg STK-MED ONCE .ROUTE ; Start 07/17/16 at 11:31; Stop at 11:32; Status DC Cefazolin Sodium 50 ml @ As Directed STK-MED ONCE IV ; Start 07/17/16 at 11:41; Stop 07/17/16 at 11:42; Status DC Lidocaine/Sodium Bicarbonate (Buffered Lidocaine 1%) 8 ml 1X ONCE IJ Last administered on 07/17/16 12:16; Start 07/17/16 at 11:50; Stop 07/17/16 at 11:54 ; Status DC Cefazolin Sodium 50 ml @ 100 mls/hr 1X ONCE IV Last administered on 12:14; Start 07/17/16 at 12:00; Stop 07/17/16 at 12:29; Status DC Gadobutrol (Gadavist) 10 mmol 1X ONCE IV Last administered on 07/17/16 12:15 ; Start 07/17/16 at 12:00; Stop 07/17/16 at 12:01; Status DC Ondansetron HCl (Zofran) 4 mg PRN Q6HRS PRN IV NAUSEA/VOMITING; Start 07/17/16 at 13:00; Stop 07/18/16 at 12:59 Fentanyl Citrate (Fentanyl 2ml Vial) 25 mcg PRN Q5MIN PRN IV MILD PAIN Last administered on 07/17/16 13:34; Start 07/17/16 at 13:00; Stop 07/17/16 at 16:53 ; Status DC Fentanyl Citrate (Fentanyl 2ml Vial) 50 mcg PRN Q5MIN PRN IV MODERATE PAIN; Start 07/17/16 at 13:00; Stop 07/17/16 at 16:53; Status DC Ringer's Solution 1,000 ml @ 0 mls/hr Q0M IV ; Start 07/17/16 at 13:00; Stop at 12:59 Lidocaine HCl 2 ml PRN 1X PRN ID PRIOR TO IV START; Start 07/17/16 at 13:00; Stop 07/18/16 at 12:59 Prochlorperazine Edisylate (Compazine) 5 mg PACU PRN PRN IV NAUSEA, MRX1; Start 07/17/16 at 13:00; Stop 07/18/16 at 12:59 Fentanyl Citrate (Fentanyl 2ml Vial) 100 mcg STK-MED ONCE .ROUTE ; Start at 12:49; Stop 07/17/16 at 12:50; Status DC Ketorolac Tromethamine (Toradol) 30 mg 1X PACU PRN IV PAIN Last administered on 07/17/16 14:07; Start 07/17/16 at 13:45; Stop 07/22/16 at 13:44 Acetaminophen (Tylenol) 500 mg QID PO Last administered on 07/18/16 09:25; Start 07/17/16 at 17:00 Albuterol Sulfate (Ventolin Neb Soln) 2.5 mg RTQID NEB ; Start 07/17/16 at 16:00 Atorvastatin Calcium (Lipitor) 20 mg QHS PO Last administered on 07/17/16 22: 10; Start 07/17/16 at 21:00 Aspirin (Ecotrin) 81 mg DAILYWBKFT PO Last administered on 07/18/16 09:20; Start 07/18/16 at 08:00 Furosemide (Lasix) 80 mg BID PO Last administered on 07/18/16 09:24; Start at 21:00 Glipizide (Glucotrol) 2.5 mg DAILYWBKFT PO Last administered on 07/18/16 09:22 ; Start 07/18/16 at 08:00 Lorazepam (Ativan) 0.5 mg TID PO ; Start 07/17/16 at 21:00; Stop 07/17/16 at 21: 00; Status DC Metoprolol Succinate (Toprol Xl) 25 mg DAILY PO Last administered on 07/18/16 09:25; Start 07/18/16 at 09:00 Nitroglycerin (Nitrostat) 0.4 mg PRN Q5MIN PRN SL CHEST PAIN; Start 07/17/16 at 15:45 Sertraline HCl (Zoloft) 50 mg DAILY PO Last administered on 07/18/16 09:25; Start 07/18/16 at 09:00 Pantoprazole Sodium (Protonix) 40 mg DAILYAC PO Last administered on 07/18/16 09:20; Start 07/18/16 at 07:30 Potassium Chloride (Klor-Con) 20 meq TIDWMEALS PO Last administered on 09:22; Start 07/17/16 at 17:00 Acetaminophen (Tylenol) 325 mg PRN Q4HRS PRN PO MILD PAIN / TEMP; Start at 15:45 Magnesium Hydroxide (Milk Of Magnesia) 2,400 mg PRN DAILY PRN PO CONSTIPATION; Start 07/17/16 at 15:45 Lidocaine (Lidoderm) 1 patch DAILY TD ; Start 07/18/16 at 09:00 Acetaminophen (Tylenol) 650 mg PRN Q4HRS PRN PO PAIN; Start 07/17/16 at 16:45; Stop 07/17/16 at 16:53; Status DC Atorvastatin Calcium (Lipitor) 20 mg HS PO ; Start 07/17/16 at 21:00; Status UNV Dabigatran (Pradaxa) 150 mg BID PO ; Start 07/17/16 at 21:00; Status Cancel Digoxin (Lanoxin) 125 mcg DAILY PO Last administered on 07/18/16 09:24; Start 07/18/16 at 09:00 Furosemide (Lasix) 80 mg BID PO ; Start 07/17/16 at 21:00; Status UNV Glipizide (Glucotrol) 2.5 mg DAILYWBKFT PO ; Start 07/18/16 at 08:00; Status UNV Metoprolol Tartrate (Lopressor) 25 mg DAILY PO ; Start 07/18/16 at 09:00; Status UNV Nitroglycerin (Nitrostat) 0.4 mg PRN Q5MIN PRN SL CHEST PAIN; Start 07/17/16 at 16:45; Status UNV Pantoprazole Sodium (Protonix) 40 mg DAILYAC PO ; Start 07/18/16 at 07:30; Status UNV Potassium Chloride (Klor-Con) 20 meq DAILY PO ; Start 07/18/16 at 09:00; Status UNV Non-Formulary Medication 1 cap DAILY IH ; Start 07/18/16 at 09:00; Status UNV Info (Anti-Coagulation Monitoring By Pharmacy) 1 each PRN DAILY PRN MC SEE COMMENTS; Start 07/17/16 at 17:00 Lorazepam (Ativan) 0.5 mg TID PO Last administered on 07/18/16 09:23; Start at 21:00 Albuterol/ Ipratropium (Duoneb) 3 ml RTQID NEB Last administered on 07/18/16 07:55; Start 07/17/16 at 20:00 Dabigatran (Pradaxa) 150 mg BID PO Last administered on 07/18/16 09:24; Start 07/18/16 at 09:00 Sodium Chloride 1,000 ml @ 60 mls/hr [id number] IV Last administered on 20:15; Start 07/17/16 at 20:15 Active Scripts Active Spiriva (Tiotropium Avella) 18 Mcg Cap.w.dev 1 Cap IH DAILY Klor-Con M20 (Potassium Chloride) 20 Meq Tab.er.prt 20 Meq PO DAILY Pradaxa (Dabigatran Etexilate Mesylate) 150 Mg Capsule 150 Mg PO BID Reported Lasix (Furosemide) 40 Mg Tablet 80 Mg PO BID Protonix (Pantoprazole Sodium) 40 Mg Tablet.dr 1 Tab PO DAILYAC NITROGLYCERIN SubLingual (Nitroglycerin) 0.4 Mg Tab.subl 0.4 Mg SL PRN Q5MIN PRN Metoprolol Tartrate 25 Mg Tablet 1 Tab PO DAILY Glipizide 5 Mg Tablet 0.5 Tab PO DAILYWBKFT Lipitor (Atorvastatin Calcium) 20 Mg Tablet 20 Mg PO HS Albuterol Sulfate Neb Soln (Albuterol Sulfate) 2.5 Mg/3 Ml Vial.neb 1 Vial NEB PRN Q4HRS PRN Tylenol (Acetaminophen) 325 Mg Tablet 2 Tab PO PRN Q4HRS Digoxin 125 Mcg Tablet 1 Tab PO DAILY Vitals/I & O Vital Sign - Last 24 Hours 07/17/16 07/17/16 07/17/16 07/17/16 11:11 11:12 12:24 12:24 Temp 98.1 98.7 98.1 98.7 Pulse 82 82 Resp 23 18 B/P (MAP) 120/69 (86) 105/62 Pulse Ox 94 98 O2 Delivery Nasal Cannula Nasal Cannula Nasal Cannula Nasal Cannula O2 Flow Rate 3.0 3.0 3 3 07/17/16 07/17/16 07/17/16 07/17/16 12:39 12:52 12:54 13:09 Pulse 76 74 75 Resp 18 B/P (MAP) 120/62 112/53 139/62 Pulse Ox 97 98 96 95 O2 Delivery Nasal Cannula Nasal Cannula Nasal Cannula Nasal Cannula O2 Flow Rate 3 3.0 3 3 07/17/16 07/17/16 07/17/16 07/17/16 13:24 13:34 13:39 13:54 Pulse 75 76 76 Resp 16 16 16 18 B/P (MAP) 138/95 139/75 166/76 Pulse Ox 94 96 93 94 O2 Delivery Nasal Cannula Nasal Cannula Nasal Cannula O2 Flow Rate 3 3.0 3 3 07/17/16 07/17/16 07/17/16 07/17/16 14:09 14:24 14:45 14:50 Temp 97.6 97.6 97.6 97.6 Pulse 76 79 75 75 Resp B/P (MAP) 145/78 135/56 147/69 (95) 147/69 (95) Pulse Ox 94 94 93 93 O2 Delivery Nasal Cannula Nasal Cannula Nasal Cannula Nasal Cannula O2 Flow Rate 3 3 3.0 3.0 07/17/16 07/17/16 07/17/16 07/17/16 14:50 19:00 19:15 19:30 Temp 98.1 98.1 Pulse 76 Resp 16 B/P (MAP) 82/47 (59) Pulse Ox 92 98 O2 Delivery Nasal Cannula Nasal Cannula Nasal Cannula Nasal Cannula O2 Flow Rate 3.0 3.0 2.0 3.0 07/17/16 07/18/16 07/18/16 07/18/16 23:07 03:00 07:15 07:15 Temp 98.4 98.4 97.3 98.4 98.4 97.3 Pulse 89 78 64 Resp 18 16 18 B/P (MAP) 104/89 (94) 116/54 (74) 118/73 (88) Pulse Ox 96 94 96 O2 Delivery Nasal Cannula Nasal Cannula Nasal Cannula Nasal Cannula O2 Flow Rate 3.0 3.0 3.0 2.0 07/18/16 07/18/16 09:24 09:25 Pulse 65 64 B/P (MAP) 118/73 118/73 Intake and Output 07/17/16 07/17/16 07/18/16 14:59 22:59 06:59 Intake Total 250 ml 180 ml 800 ml Balance 250 ml 180 ml 800 ml MOR MALCOLM MD July 18, 2016 10:27
--- NOTE | 2016-07-18 10:31 | DISCH ---
DISCHARGE INSTRUCTIONS Condition on Discharge Condition on Discharge: Stable Activity After Discharge Activity Instructions for Disc: Resume previous activity Diet after Discharge Diet after Discharge: Cardiac, Diabetic No Calorie Level Contacting the after DC Call your doctor for: If your condition worsens Follow-Up Follow up with: dr. malcolm next week MOR MALCOLM MD July 18, 2016 10:30
[2016-07-18] MEDS ORDERED: ACET500T55 PO (10:33)
[2016-07-18] MEDS ORDERED: LORA0.5T96 PO (10:33)
[2016-07-18] MEDS ORDERED: POTA20TA4 PO (10:33)
[2016-07-18] MEDS ORDERED: SERT50TA8 PO (10:33)
--- NOTE | 2016-07-18 10:38 | PDOC ---
Provider Note Provider Note discharge summary dictated # [id number] MOR MALCOLM MD July 18, 2016 10:38
[2016-07-18 11:08] VITALS: BP 115/59
--- NOTE | 2016-07-18 20:29 | DS ---
DATE OF DISCHARGE: 07/18/2016 NUCLEAR MEDICAL TECHNOLOGIST: Andrea Bass MD. FINAL DIAGNOSES: 1. T11 kyphoplasty for an acute/subacute T11 vertebral compression fracture. 2. Osteoporosis. 3. Intractable back pain, which continued after the kyphoplasty. 4. Diabetes mellitus type 2 with microalbuminuria 5. Atrial fibrillation. 6. Diabetic nephropathy with microalbuminuria. 7. Chronic obstructive pulmonary disease. 8. Chronic respiratory failure with hypoxia. 9. Chronic diastolic congestive heart failure. 10. History of left subclavian artery stenosis. HOSPITAL COURSE: The patient is a 75-year-old white female who underwent a T11 kyphoplasty by Dr. Bass for an acute/subacute T11 vertebral compression fracture. She does have a history of osteoporosis. She was complaining of back pain and an MRI of the lumbar spine was done as an outpatient, which showed an acute thoracic vertebral compression fractures at T11. The patient underwent a thoracic MRI of the spine today, which showed once again T11 vertebral compression fracture and old L1 compression fracture, but nothing else new. She underwent a T11 kyphoplasty and was complaining of significant pain after the procedure, so she was admitted to the hospital. She does not tolerate tramadol narcotics due to delirium in the past. So she was treated with Tylenol 500 mg q.i.d. and ____ patch was ordered and her back pain improved significantly last night and this morning to the point where she was able to ambulate and she feels that she is ready to go home. Her blood pressure was low last night. It is unclear if it was checked in the left arm because she does have a left subclavian artery stenosis and blood pressure is always low in the left arm. She received IV fluids. Blood pressure this morning is 118 systolic and she will be dismissed today on the same medication she was taking prior to admission. Dr. Bass was called by the nurse yesterday and so we can restart Pradaxa today. Therefore, she will be dismissed on the same medications as she was before admission, which will be an albuterol nebulizer treatment q.i.d., albuterol inhaler when she is away from home, 1-2 puffs every 4 hours p.r.n., aspirin 81 mg every day, atorvastatin 20 mg at bedtime, furosemide 80 mg b.i.d., glipizide 2.5 mg every day, lorazepam 0.5 mg t.i.d., metoprolol succinate 25 mg every day, nitroglycerin 0.4 mg sublingual p.r.n., potassium chloride 20 mEq 1 t.i.d., Pradaxa 150 mg b.i.d., Protonix 40 mg every day, Spiriva 1 puff every day, and sertraline 50 mg every day. We also discussed the possibility of starting Prolia as an outpatient. We will consider that when she comes to the office in a week for followup. Thank you very much. MOR MALCOLM MD DR: Willy JOB#: [id number] / [id number]
== END 2016-07-18 12:40 | disposition home or self-care (01) ==
LOC: MRI 09:41 → 4 NORTH 14:00
PROVIDERS: ADMIT Internal Medicine; ATTEND Radiology Vascular & Interventional Radiology
DX: M80.88XA Other osteoporosis with current pathological fracture, vertebra(e), initial encounter for fracture (principal); M48.56XA Collapsed vertebra, not elsewhere classified, lumbar region, initial encounter for fracture; M47.814 Spondylosis without myelopathy or radiculopathy, thoracic region; E11.21 Type 2 diabetes mellitus with diabetic nephropathy; E11.29 Type 2 diabetes mellitus with other diabetic kidney complication; R80.9 Proteinuria, unspecified; I48.91 Unspecified atrial fibrillation; J44.9 Chronic obstructive pulmonary disease, unspecified; I13.0 Hypertensive heart and chronic kidney disease with heart failure and stage 1 through stage 4 chronic kidney disease, or unspecified chronic kidney disease; N18.9 Chronic kidney disease, unspecified; E11.22 Type 2 diabetes mellitus with diabetic chronic kidney disease; I50.32 Chronic diastolic (congestive) heart failure; E78.5 Hyperlipidemia, unspecified; J96.11 Chronic respiratory failure with hypoxia; I25.10 Atherosclerotic heart disease of native coronary artery without angina pectoris; I70.1 Atherosclerosis of renal artery; K21.9 Gastro-esophageal reflux disease without esophagitis; Z95.5 Presence of coronary angioplasty implant and graft; Z87.891 Personal history of nicotine dependence; Z79.01 Long term (current) use of anticoagulants; Z79.82 Long term (current) use of aspirin; Z79.84 Long term (current) use of oral hypoglycemic drugs; Z79.899 Other long term (current) drug therapy
CPT/HCPCS: 22513; 36415; 72146; 80048; 82962; 85007; 85027; 85610; 87641; 94250; 94640; 94760; C1758; C1892; G0378; G0379; J0690; J1885; J2250; J2370; J2704; J3010; J3490; J7030; J7620; 96365; 99152; 99153; A9585

== ENCOUNTER → 2016-07-25 | Outpatient (CLI) | payer MEDICARE, OTHER ==
[2016-07-18 11:08] VITALS: BP 115/59
[~2016-07-25] MED LIST changes: +ACET500T55 PO; -NITR0.4T22 SL; +NITR0.4T6 SL; +SERT50TA8 PO
== END | disposition home or self-care (01) ==
LOC: PMGWOUND 10:17
PROVIDERS: ATTEND Preventive Medicine Undersea and Hyperbaric Medicine
DX: T21.35XA Burn of third degree of buttock, initial encounter (principal); J44.9 Chronic obstructive pulmonary disease, unspecified; K21.9 Gastro-esophageal reflux disease without esophagitis; E78.5 Hyperlipidemia, unspecified; E11.22 Type 2 diabetes mellitus with diabetic chronic kidney disease; I13.0 Hypertensive heart and chronic kidney disease with heart failure and stage 1 through stage 4 chronic kidney disease, or unspecified chronic kidney disease; I50.32 Chronic diastolic (congestive) heart failure; N18.9 Chronic kidney disease, unspecified; E11.21 Type 2 diabetes mellitus with diabetic nephropathy; E11.40 Type 2 diabetes mellitus with diabetic neuropathy, unspecified; I48.91 Unspecified atrial fibrillation; F41.9 Anxiety disorder, unspecified; E78.00 Pure hypercholesterolemia, unspecified; I25.2 Old myocardial infarction; Z86.14 Personal history of Methicillin resistant Staphylococcus aureus infection; Z79.01 Long term (current) use of anticoagulants; Z90.710 Acquired absence of both cervix and uterus; Y92.89 Other specified places as the place of occurrence of the external cause; Z87.891 Personal history of nicotine dependence; Y99.8 Other external cause status; Y93.89 Activity, other specified; X08.8XXA Exposure to other specified smoke, fire and flames, initial encounter
CPT/HCPCS: 97597

== ENCOUNTER → 2016-08-02 | Outpatient (CLI) | payer MEDICARE, OTHER ==
[2016-07-18 11:08] VITALS: BP 115/59
[~2016-08-02] MED LIST changes: +NITR0.4T22 SL; -NITR0.4T6 SL
== END | disposition home or self-care (01) ==
LOC: PMGWOUND 13:59
PROVIDERS: ATTEND Emergency Medicine Undersea and Hyperbaric Medicine
DX: T21.35XD Burn of third degree of buttock, subsequent encounter (principal); F41.9 Anxiety disorder, unspecified; F32.9 Major depressive disorder, single episode, unspecified; J44.9 Chronic obstructive pulmonary disease, unspecified; K21.9 Gastro-esophageal reflux disease without esophagitis; E78.5 Hyperlipidemia, unspecified; I25.2 Old myocardial infarction; E78.00 Pure hypercholesterolemia, unspecified; E11.21 Type 2 diabetes mellitus with diabetic nephropathy; E11.40 Type 2 diabetes mellitus with diabetic neuropathy, unspecified; I48.91 Unspecified atrial fibrillation; E11.22 Type 2 diabetes mellitus with diabetic chronic kidney disease; I13.0 Hypertensive heart and chronic kidney disease with heart failure and stage 1 through stage 4 chronic kidney disease, or unspecified chronic kidney disease; N18.9 Chronic kidney disease, unspecified; I50.32 Chronic diastolic (congestive) heart failure; Z90.710 Acquired absence of both cervix and uterus; Z79.01 Long term (current) use of anticoagulants; Z86.14 Personal history of Methicillin resistant Staphylococcus aureus infection; Z87.891 Personal history of nicotine dependence; T31.0 Burns involving less than 10% of body surface; X08.8XXD Exposure to other specified smoke, fire and flames, subsequent encounter
CPT/HCPCS: 16020

== ENCOUNTER → 2016-08-09 | Outpatient (CLI) | payer MEDICARE, OTHER ==
[2016-07-18 11:08] VITALS: BP 115/59
--- NOTE | 2016-08-09 15:31 | KCIC ---
Examination: DEXA scan HISTORY: History of postmenopausal, osteoporosis, history of vertebral fracture COMPARISON: None available FINDINGS: The bone mineral density in the left hip is 0.637 g/sq cm with a T score of -2.5 and a Z score of -0.6. The bone marrow density in the distal forearm is 0.311 g/sq cm with a T score of -5.0 and a Z score of -2.0 IMPRESSION: Findings consistent with osteoporosis. Electronically signed by: Eric Barry MD (08/09/2016 3:28 PM)
== END | disposition home or self-care (01) ==
LOC: KCIC DEXA 13:18
PROVIDERS: ATTEND Internal Medicine
DX: Z13.820 Encounter for screening for osteoporosis (principal); Z78.0 Asymptomatic menopausal state; Z87.81 Personal history of (healed) traumatic fracture
CPT/HCPCS: 77080; 77081

== ENCOUNTER → 2016-08-16 | Outpatient (CLI) | payer MEDICARE, OTHER ==
[2016-07-18 11:08] VITALS: BP 115/59
[~2016-08-16] MED LIST changes: +ASCO500T2 PO; +GLIM2TAB PO
== END | disposition home or self-care (01) ==
LOC: PMGWOUND 11:36
PROVIDERS: ATTEND Emergency Medicine Undersea and Hyperbaric Medicine
DX: T21.35XD Burn of third degree of buttock, subsequent encounter (principal); S31.829D Unspecified open wound of left buttock, subsequent encounter; T31.0 Burns involving less than 10% of body surface; F32.9 Major depressive disorder, single episode, unspecified; F41.9 Anxiety disorder, unspecified; J44.9 Chronic obstructive pulmonary disease, unspecified; K21.9 Gastro-esophageal reflux disease without esophagitis; E78.5 Hyperlipidemia, unspecified; I25.2 Old myocardial infarction; E78.00 Pure hypercholesterolemia, unspecified; E11.21 Type 2 diabetes mellitus with diabetic nephropathy; E11.40 Type 2 diabetes mellitus with diabetic neuropathy, unspecified; I48.91 Unspecified atrial fibrillation; I50.32 Chronic diastolic (congestive) heart failure; N18.9 Chronic kidney disease, unspecified; Z87.891 Personal history of nicotine dependence; Z79.01 Long term (current) use of anticoagulants; Z90.710 Acquired absence of both cervix and uterus; X08.8XXD Exposure to other specified smoke, fire and flames, subsequent encounter; X58.XXXD Exposure to other specified factors, subsequent encounter
CPT/HCPCS: 97597

== ENCOUNTER → 2016-08-23 | Outpatient (CLI) | payer MEDICARE, OTHER ==
[2016-08-18 11:00] VITALS: BP 110/53
== END | disposition home or self-care (01) ==
LOC: PMGWOUND 13:53
PROVIDERS: ATTEND Emergency Medicine Undersea and Hyperbaric Medicine
DX: S31.829D Unspecified open wound of left buttock, subsequent encounter (principal); T21.35XD Burn of third degree of buttock, subsequent encounter; T31.0 Burns involving less than 10% of body surface; T78.49XD Other allergy, subsequent encounter; R06.00 Dyspnea, unspecified; I25.10 Atherosclerotic heart disease of native coronary artery without angina pectoris; K21.9 Gastro-esophageal reflux disease without esophagitis; J44.9 Chronic obstructive pulmonary disease, unspecified; F41.9 Anxiety disorder, unspecified; F32.9 Major depressive disorder, single episode, unspecified; F17.210 Nicotine dependence, cigarettes, uncomplicated; E11.22 Type 2 diabetes mellitus with diabetic chronic kidney disease; I13.0 Hypertensive heart and chronic kidney disease with heart failure and stage 1 through stage 4 chronic kidney disease, or unspecified chronic kidney disease; N18.9 Chronic kidney disease, unspecified; I50.33 Acute on chronic diastolic (congestive) heart failure; M81.0 Age-related osteoporosis without current pathological fracture; I48.91 Unspecified atrial fibrillation; E78.5 Hyperlipidemia, unspecified; I25.2 Old myocardial infarction; E78.00 Pure hypercholesterolemia, unspecified; E11.43 Type 2 diabetes mellitus with diabetic autonomic (poly)neuropathy; E11.51 Type 2 diabetes mellitus with diabetic peripheral angiopathy without gangrene; M19.90 Unspecified osteoarthritis, unspecified site; Z95.1 Presence of aortocoronary bypass graft; X08.8XXD Exposure to other specified smoke, fire and flames, subsequent encounter
CPT/HCPCS: 97597

== ENCOUNTER 2016-09-06 10:02 | Inpatient (IN) | payer MEDICARE, OTHER ==
[~2016-09-06] VITALS: Ht 149.9 cm; Wt 60.5 kg
[2016-09-06] VITALS (10 sets, daily range): BP systolic 92–146; BP diastolic 49–73
[2016-09-06] MEDS ORDERED: IPRATRPIUM/ALBUTEROL 0.5/2.5MG 3 ML NEBU. NEB ONE (10:30)
[2016-09-06 10:42] LABS: INR 1.5 (0.8-1.1); PROTHROMBIN TIME PATIENT 17.3 SEC (11.7-14.0)
[2016-09-06 10:43] LABS: HCO3 ABG 29 mmol/L (21-28); PCO2 ABG 52 mmHg (35-46); PH ABG 7.37 (7.35-7.45)
[2016-09-06] MEDS ORDERED: ALBUTEROL SULFATE 2.5 MG/3 ML NEBU. CONT NEB ONE (10:45)
[2016-09-06 10:48] LABS: BASO # 0.1 x10^3/uL (0.0-0.2); BASO % 1 % (0-3); EOS % 0 % (0-3); HEMOGLOBIN 12.2 g/dL (12.0-15.5); LYMPH # 0.8 x10^3/uL (1.0-4.8); LYMPH % 7 % (24-48); MEAN CORPUSCULAR HEMOGLOBIN 23 pg (25-35); MEAN CORPUSCULAR HGB CONC 30 g/dL (31-37); MEAN CORPUSCULAR VOLUME 76 fL (79-100); MONO % 5 % (0-9); NEUT % 88 % (31-73); PLATELET COUNT 188 x10^3/uL (140-400); RED BLOOD COUNT 5.34 x10^6/uL (3.50-5.40); RED CELL DISTRIBUTION WIDTH 21.4 % (11.5-14.5)
[2016-09-06 10:51] LABS: HEMATOCRIT 40.4 % (36.0-47.0)
[2016-09-06] MEDS ORDERED: IV NORMAL SALINE 1000ML BAG 1,000 ML IV ONE (11:00)
[2016-09-06] MEDS ORDERED: methylPREDNISolone SOD SUCC PF 125 MG/2 ML VIAL. IV ONE (11:15)
[2016-09-06] MEDS ORDERED: levOFLOXacin PER PHARMACY. MC PRN (11:15)
[2016-09-06] MEDS ORDERED: PIP/TAZO PER PHARMACY MC PRN (11:15)
--- NOTE | 2016-09-06 11:22 | RAD ---
EXAM: Chest one view. HISTORY: Shortness of breath. COMPARISON: 08/16/2016. FINDINGS: A frontal view of the chest is obtained. A right pleural effusion has increased and is now moderate. The right base is opacified. A component of right middle lobe/lower lobe consolidation cannot be excluded. There is no pneumothorax. There are atherosclerotic calcifications of the aorta. The heart is moderately enlarged. There are surgical clips within the right neck and right upper quadrant. Vertebroplasty changes are noted at the thoracolumbar junction. IMPRESSION: 1. Increased opacification in the right base is consistent with an increasing, moderate right pleural effusion with or without right middle/lower lobe consolidation. 2. Moderate cardiomegaly.
[2016-09-06] MEDS: PIPERACILLIN/TAZOBACTAM 2.25 GM in IV NORMAL SALINE 50ML 50 ML IV SCH ×3 (11:24→23:47)
[2016-09-06 11:25] LABS: CALCIUM 9.1 mg/dL (8.5-10.1); CREATININE 1.1 mg/dL (0.6-1.0); GFR 48.2; POTASSIUM 4.1 mmol/L (3.5-5.1)
[2016-09-06 11:26] LABS: ALBUMIN 3.9 g/dL (3.4-5.0); ALBUMIN/GLOBULIN RATIO 1.1 (1.0-1.7); MAGNESIUM 2.5 mg/dL (1.8-2.4); TOTAL BILIRUBIN 1.9 mg/dL (0.2-1.0); TOTAL PROTEIN 7.4 g/dL (6.4-8.2)
[2016-09-06] MEDS ORDERED: VANCOMYCIN 1.5 GM in IV NORMAL SALINE 500ML BAG 500 ML IV ONE (11:30)
[2016-09-06] MEDS ORDERED: IV NORMAL SALINE 500ML BAG 500 ML IV ONE (11:30)
--- NOTE | 2016-09-06 11:31 | EKG ---
[facility] [address] [place] [address] Test Date: 2016-09-06 Test Time: 10:15:57 Pat Name: ADRI LITTLE Department: Room: Gender: F Fisher Spear: : 1940 Requested By: MELLISSA MORAN Order Number: [id number] Reading MD: Elroy Mina Measurements Intervals [place] Rate: 95 P: IN: QRS: 118 QRSD: 94 T: -126 QT: 342 QTc: 433 Interpretive Statements ATRIAL FIBRILLATION ABNORMAL RIGHT AXIS DEVIATION ST & T ABNORMALITY, CONSIDER INFERIOR ISCHEMIA OR LEFT VENTRICULAR STRAIN T ABNORMALITY IN LATERAL LEADS Electronically Signed On 09-16-2016 14:40:30 CDT by Elroy Mina
[2016-09-06 11:36] LABS: % BASOS 1 % (0-3); ANISOCYTOSIS SLIGHT; PLT ESTIMATE ADEQUATE (ADEQUATE)
--- NOTE | 2016-09-06 11:39 | EKG ---
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
--- NOTE | 2016-09-06 11:44 | PHYS DOC ---
Past Medical History Past Medical History: A-Fib, Anxiety, CHF, COPD, Diabetes-Type II, High Cholesterol, Heart Disease, Hypertension, PR, MRSA Past Surgical History: Cholecystectomy, Hysterectomy, Tonsillectomy, Other Additional Past Surgical Histo: Bowel resection,Cardiac Cath with stents,BACK SURG Additional Information: 1 PPD Alcohol Use: None Drug Use: None Adult General Chief Complaint Chief Complaint: SHORTNESS OF BREATH HPI HPI Patient is a 75 year old female who presents with increased shortness of breath. Pt is oxygen dependent COPD with CHF. She's been having increasing symptoms of the last several days. She reports some pain on her right side but then states it's her left lower back. She denies any fevers, no increasing cough. He is not currently on steroids, PCP is Dr. Harvey Review of Systems Review of Systems Constitutional: Denies fever or chills [] Eyes: Denies change in visual acuity, redness, or eye pain [] HENT: Denies nasal congestion or sore throat [] Respiratory: Per history of present illness Cardiovascular: No additional information not addressed in HPI [] GI: Denies abdominal pain, nausea, vomiting, bloody stools or diarrhea [] : Denies dysuria or hematuria [] Musculoskeletal: Reports ongoing back pain with lesion, denies joint pain [] Integument: Denies rash or skin lesions [] Neurologic: Denies headache, focal weakness or sensory changes [] Endocrine: Denies polyuria or polydipsia [] Current Medications Current Medications Current Medications Medications (Trade) Dose Ordered Sig/Karyna Start Time Stop Time Status Last Admin Dose Admin Albuterol Sulfate (Ventolin Neb Soln) 7.5 mg 1X ONCE 09/06/16 10:45 09/06/16 10:46 DC 09/06/16 10:55 7.5 MG Albuterol/ Ipratropium (Duoneb) 3 ml 1X ONCE 09/06/16 10:30 09/06/16 10:31 DC 09/06/16 10:56 3 ML Sodium Chloride 1,000 ml @ 1,000 mls/hr 1X ONCE 09/06/16 11:00 09/06/16 11:00 DC Allergies Allergies Allergies Coded Allergies Type Severity Reaction Last Updated Verified aspirin Allergy Intermediate OK with 81mg dose 07/17/16 Yes hydrocodone Allergy Intermediate tramadol ok 07/17/16 Yes iodine Allergy Intermediate 07/17/16 Yes lisinopril Allergy Intermediate 07/17/16 Yes metformin Allergy Intermediate 07/17/16 Yes I S O L A T I O N *CONTACT* Allergy Unknown 07/17/16 Yes Physical Exam Physical Exam Constitutional: Well developed, frail, moderate respiratory distress, low O2 sats on nonrebreather HENT: Normocephalic, atraumatic, bilateral external ears normal, oropharynx moist, no oral exudates, nose normal. [] Eyes: PERRLA, EOMI, conjunctiva normal, no discharge. [] Neck: Normal range of motion, no tenderness, supple, no stridor. [] Cardiovascular:Heart rate tachy with regular rhythm Lungs & Thorax: poor air movement bilaterally with exp wheeze and prolonged exp phase, abdominal breathing Abdomen: soft, no tenderness, no masses, no pulsatile masses. [] Skin: Warm, dry Back: No tenderness, no CVA tenderness, left lower back erythema without warmth , fluctuance or drainage Extremities: No tenderness, no cyanosis, no clubbing, ROM intact, no edema. [] Neurologic: Alert and oriented X 3 (knows the month/season, not the year), normal motor function, normal sensory function, no focal deficits noted. [] Current Patient Data Vital Signs Vital Signs Date Time Temp Pulse Resp B/P (MAP) Pulse Ox O2 Delivery O2 Flow Rate FiO2 09/06/16 10:49 78 143/67 (92) 96 BiPAP/CPAP 09/06/16 10:06 98.3 28 98.3 Lab Values Laboratory Tests Test 09/06/16 10:25 09/06/16 11:00 White Blood Count 12.0 x10^3/uL (4.0-11.0) H Red Blood Count 5.34 x10^6/uL (3.50-5.40) Hemoglobin 12.2 g/dL (12.0-15.5) Hematocrit 40.4 % (36.0-47.0) Mean Corpuscular Volume 76 fL (79-100) L Mean Corpuscular Hemoglobin 23 pg (25-35) L Mean Corpuscular Hemoglobin Concent 30 g/dL (31-37) L Red Cell Distribution Width 21.4 % (11.5-14.5) H Platelet Count 188 x10^3/uL (140-400) # Neutrophils (%) (Auto) 88 % (31-73) H Lymphocytes (%) (Auto) 7 % (24-48) L Monocytes (%) (Auto) 5 % (0-9) Eosinophils (%) (Auto) 0 % (0-3) Basophils (%) (Auto) 1 % (0-3) Neutrophils # (Auto) 10.6 x10^3uL (1.8-7.7) H Lymphocytes # (Auto) 0.8 x10^3/uL (1.0-4.8) L Monocytes # (Auto) 0.6 x10^3/uL (0.0-1.1) Eosinophils # (Auto) 0.0 x10^3/uL (0.0-0.7) Basophils # (Auto) 0.1 x10^3/uL (0.0-0.2) Segmented Neutrophils % 86 % (35-66) H Lymphocytes % 10 % (24-48) L Monocytes % 3 % (0-10) Basophils % 1 % (0-3) Platelet Estimate Adequate (ADEQUATE) Anisocytosis Slight Prothrombin Time 17.3 SEC (11.7-14.0) H Prothrombin Time INR 1.5 (0.8-1.1) H Lactic Acid Level 2.8 mmol/L (0.4-2.0) H Sodium Level 145 mmol/L (136-145) Potassium Level 4.1 mmol/L (3.5-5.1) Chloride Level 104 mmol/L (98-107) Carbon Dioxide Level 32 mmol/L (21-32) Anion Gap 9 (6-14) Blood Urea Nitrogen 21 mg/dL (7-20) H Creatinine 1.1 mg/dL (0.6-1.0) H Estimated GFR (Cockcroft-Gault) 48.2 BUN/Creatinine Ratio 19 (6-20) Glucose Level 124 mg/dL (70-99) H Calcium Level 9.1 mg/dL (8.5-10.1) Magnesium Level 2.5 mg/dL (1.8-2.4) H Total Bilirubin 1.9 mg/dL (0.2-1.0) H Aspartate Amino Transferase (AST) 23 U/L (15-37) Alanine Aminotransferase (ALT) 14 U/L (14-59) Alkaline Phosphatase 135 U/L (46-116) H Troponin I Quantitative 0.203 ng/mL (0.000-0.055) FR-Uyw-M-Type Natriuretic Peptide 73434 pg/mL (0-449) H Total Protein 7.4 g/dL (6.4-8.2) Albumin 3.9 g/dL (3.4-5.0) Albumin/Globulin Ratio 1.1 (1.0-1.7) Laboratory Tests 09/06/16 10:25 Laboratory Tests 09/06/16 11:00 EKG EKG 86 bpm, appears to be A. fib with normal intervals, no ST elevation or depression, nonischemic T waves and interpreted by me [] Radiology/Procedures Radiology/Procedures Chest x-ray: IMPRESSION: 1. Increased opacification in the right base is consistent with an increasing, moderate right pleural effusion with or without right middle/lower lobe consolidation. 2. Moderate cardiomegaly. Course & Med Decision Making Course & Med Decision Making Pertinent Labs and Imaging studies reviewed. (See chart for details) Patient was started on BiPAP, given DuoNeb, continuous albuterol breathing treatments. Patient was feeling better and her O2 sats improved. Previously on the nonrebreather mask the highest was 84%. Patient was given IV Solu-Medrol, IV Lasix 40 mg, 500 mL normal saline bolus. She meets sepsis criteria and IV vancomycin and Zosyn, Levaquin were ordered. I spoke with Dr. Harvey who accepted this patient for the ICU. Consults were placed for cardiology, pulmonary and infectious disease. Pt did not receive larger IV boluses due to her CHF and maintaining BP, fluids will be given judicially. Total critical care time >35 minutes Dragon Disclaimer Dragon Disclaimer This electronic medical record was generated, in whole or in part, using a voice recognition dictation system. Departure Departure Impression: Primary Impression: CHF exacerbation Additional Impressions: COPD exacerbation Acute and chronic respiratory failure Disposition: ADMITTED INPATIENT Admitting Physician: Rosalino Harvey Condition: CRITICAL Referrals: ROSALINO HARVEY MD (PCP) Problem Qualifiers MELLISSA MORAN MD Sep 06, 2016 11:44
[2016-09-06] MEDS ORDERED: FUROSEMIDE 40 MG/4 ML VIAL. IVP ONE (12:00)
[2016-09-06 12:08] LABS: BILIRUBIN,URINE NEGATIVE (NEG); GLUCOSE,URINE NEGATIVE (NEG); NITRITE,URINE NEGATIVE (NEG); PROTEIN,URINE NEGATIVE (NEG-TRACE); UROBILINOGEN,URINE 0.2 mg/dL (0.2 mg/dL)
[2016-09-06 12:21] LABS: BACTERIA,URINE 0 /HPF (0-FEW); RBC,URINE 0 /HPF (0-2); WBC,URINE 0 /HPF (0-4)
--- NOTE | 2016-09-06 13:04 | ACF ---
Admit Criteria Forms Admit Criteria Forms Admit Criteria Forms RESPIRATORY FAILURE GRG Clinical Indications for Admission to Inpatient Care (Place 'X' for any and all applicable criteria): Hospital admission is needed for appropriate care of the patient because of acute respiratory failure or insufficiency as indicated by ANY ONE of the following(1)(2)(3)(4)(5)(6)(7)(8): [X]I. Mechanical ventilation needed (acute invasive or noninvasive) [ ]II. Severe ventilation deficit as indicated by ANY ONE of the following (9) [ ]a) Respiratory acidosis (pH less than 7.32 and partial pressure of carbon dioxide greater than 40 mm Hg (5.3 kPa)) [ ]b) Partial pressure of carbon dioxide greater than 44 mm Hg (5.9 kPa ) (new) [ ]c) Airflow measurements less than 25% of predicted (eg, peak expiratory flow rate less than 100 L/minute) [ ]d) Forced vital capacity less than 15 mL/kg of ideal body weight, or 50% decrease in vital capacity from baseline [ ]III. Noncardiac pulmonary edema not resolving with rapid emergency treatment (8) [ ]IV. Severe respiratory distress as indicated by ANY ONE of the following: [ ]a) Severe tachypnea (respiratory rate greater than 30, greater than 45 for 6-month-old, greater than 60 for ) [ ]b) Severe hypoxemia (partial pressure of oxygen less than 50 mm Hg ( 6.7 kPa) on greater than 50% oxygen or partial pressure of oxygen to FIO2 ratio less than 200) [ ]c) Mental status deterioration from respiratory disease [ ]V. Airway obstruction or inadequate protection [A](10)(11) The original [employer] content created by [employer] has been revised. The portions of the content which have been revised are identified through the use of italic text or in bold, and [employer] has neither reviewed nor approved the modified material. All other unmodified content is copyright [employer]. Please see references footnoted in the original [employer] edition 2015 STEFANI IRWIN Sep 06, 2016 13:04
--- NOTE | 2016-09-06 13:12 | PDOC ---
Provider Note Provider Note history and physical dictated # [id number] MOR MALCOLM MD Sep 06, 2016 13:11
[2016-09-06] MEDS: VANCOMYCIN PER PHARMACY MC PRN (13:13)
[2016-09-06] MEDS ORDERED: ALBUTEROL SULFATE 2.5 MG/3 ML NEBU. NEB PRN (13:15)
--- NOTE | 2016-09-06 13:41 | PDOC2 ---
CARDIAC CONSULT DATE OF CONSULT Date of Consult DATE: 09/06/16 TIME: 13:34 REASON FOR CONSULT Reason for Consult: CHF REFERRING PHYSICIAN Referring Physician: Camilo SOURCE Source: Chart review, Patient HISTORY OF PRESENT ILLNESS HISTORY OF PRESENT ILLNESS This is a 75 yo female admitted for complians of SOa and confusion/agitation.Pt supposed to have gone to her PCP today but she was found by her daughter at her home naked and was confused and agitated. She was noted to be in her right mind Zulema as she talked to her son but not sure if she had some conversation with her daughter yesterday. There was no noted complain of chest pain, significant SOA, passing out, nausea any stroke symptoms per her son. Presently she has bipap on and is drowsy but arousable and knows where she is at and denies any pain. She does live alone and based from her previous admission she does have compliance issues with wearing her oxygen and also continue to smoke tobacco. There was no mention of any fever or chills in the last few days. PAST MEDICAL HISTORY Past Medical History Cardiovascular: AFIB (permanent), CAD (with previous MD - details unknown), CHF (chronic diastolic ), HTN, Hyperlipidemia, Other (PVD with previous left EIA MANAGER SERVICE DESK/stent and bilateral RA MANAGER SERVICE DESK/stent; left subclavian artery stenosis), Carotid artery disease Pulmonary: COPD (with chronic hypoxic respiratory failure), O2 dependent, Cor pulmonale, secondary pulmonary HTN CENTRAL NERVOUS SYSTEM: Peripheral neuropathy (secondary to diabetes) GI: GERD, gastroparesis Heme/Onc: Cancer (tubular adenoma with right hemicolectomy; 2011), Anemia Hepatobiliary: No pertinent hx Psych: No pertinent hx Musculoskeletal: Osteoarthritis, Other (superior pubic ramus fracture and sacral fracture with sacroplasty after fall 05/2015) Rheumatologic: No pertinent hx Infectious disease: No pertinent hx ENT: No pertinent hx Renal/: UTI Endocrine: Diabetes (type II with neuropathy), Other (Vitamin D deficiency) PAST SURGICAL HISTORY Past Surgical History Cholecystectomy, Cataract Removal, Tonsillectomy, Hysterectomy, Colon Resection (right hemicolectomy; Bilat RA MANAGER SERVICE DESK/stent; 2010; left EIA MANAGER SERVICE DESK/stent; ) FAMILY HISTORY Family History Cancer (mother), Diabetes (father), Heart Disease (father with MD), Hypertension SOCIAL HISTORY Social History Smoke: 1 pack per day ALCOHOL: none Drugs: None Lives: Family CURRENT MEDICATIONS CURRENT MEDICATIONS Current Medications Medications (Trade) Dose Ordered Sig/Karyna Route PRN Reason Start Time Stop Time Status Last Admin Dose Admin Albuterol/ Ipratropium (Duoneb) 3 ml 1X ONCE NEB 09/06/16 10:30 09/06/16 10:31 DC 09/06/16 10:56 Albuterol Sulfate (Ventolin Neb Soln) 7.5 mg 1X ONCE CONT NEB 09/06/16 10:45 09/06/16 10:46 DC 09/06/16 10:55 Methylprednisolone Sodium Succinate (SOLU-Medrol 125MG VIAL) 125 mg 1X ONCE IV 09/06/16 11:15 09/06/16 11:16 DC 09/06/16 11:06 Vancomycin HCl (Vanco Per Pharmacy) 1 each PRN DAILY PRN MC SEE COMMENTS 09/06/16 11:15 09/06/16 13:13 Sodium Chloride 500 ml @ 500 mls/hr 1X ONCE IV 09/06/16 11:30 09/06/16 12:29 DC 09/06/16 11:23 Vancomycin HCl 1.5 gm/Sodium Chloride 500 ml @ 250 mls/hr 1X ONCE IV 09/06/16 11:30 09/06/16 13:29 DC 09/06/16 12:13 Levofloxacin/ Dextrose 150 ml @ 100 mls/hr Q48H IV 09/06/16 12:00 09/06/16 11:42 Piperacillin Sod/ Tazobactam Sod 2.25 gm/Sodium Chloride 50 ml @ 100 mls/hr Q6HRS IV 09/06/16 12:00 09/06/16 11:24 Furosemide (Lasix) 40 mg 1X ONCE IVP 09/06/16 12:00 09/06/16 12:01 DC 09/06/16 11:57 ALLERGIES ALLERGIES: Coded Allergies: aspirin (Verified Allergy, Intermediate, OK with 81mg dose, 07/17/16) per Dr. Harvey hydrocodone (Verified Allergy, Intermediate, tramadol ok, 07/17/16) iodine (Verified Allergy, Intermediate, 07/17/16) lisinopril (Verified Allergy, Intermediate, 07/17/16) metformin (Verified Allergy, Intermediate, 07/17/16) I S O L A T I O N *CONTACT* (Verified Allergy, Unknown, 07/17/16) mrsa + ROS Review of System 14 point ROS evaluated with pertinent positives noted per HPI VITALS VITALS Vital Signs Date Time Temp Pulse Resp B/P (MAP) Pulse Ox O2 Delivery O2 Flow Rate FiO2 09/06/16 12:52 97 BiPAP/CPAP 09/06/16 12:19 78 144/72 (96) 09/06/16 10:06 98.3 28 98.3 LABS Lab: Laboratory Tests Test 09/06/16 10:25 09/06/16 11:00 09/06/16 12:00 White Blood Count 12.0 x10^3/uL (4.0-11.0) Red Blood Count 5.34 x10^6/uL (3.50-5.40) Hemoglobin 12.2 g/dL (12.0-15.5) Hematocrit 40.4 % (36.0-47.0) Mean Corpuscular Volume 76 fL (79-100) Mean Corpuscular Hemoglobin 23 pg (25-35) Mean Corpuscular Hemoglobin Concent 30 g/dL (31-37) Red Cell Distribution Width 21.4 % (11.5-14.5) Platelet Count 188 x10^3/uL (140-400) Neutrophils (%) (Auto) 88 % (31-73) Lymphocytes (%) (Auto) 7 % (24-48) Monocytes (%) (Auto) 5 % (0-9) Eosinophils (%) (Auto) 0 % (0-3) Basophils (%) (Auto) 1 % (0-3) Neutrophils # (Auto) 10.6 x10^3uL (1.8-7.7) Lymphocytes # (Auto) 0.8 x10^3/uL (1.0-4.8) Monocytes # (Auto) 0.6 x10^3/uL (0.0-1.1) Eosinophils # (Auto) 0.0 x10^3/uL (0.0-0.7) Basophils # (Auto) 0.1 x10^3/uL (0.0-0.2) Segmented Neutrophils % 86 % (35-66) Lymphocytes % 10 % (24-48) Monocytes % 3 % (0-10) Basophils % 1 % (0-3) Platelet Estimate Adequate (ADEQUATE) Anisocytosis Slight Prothrombin Time 17.3 SEC (11.7-14.0) Prothromb Time International Ratio 1.5 (0.8-1.1) Lactic Acid Level 2.8 mmol/L (0.4-2.0) Sodium Level 145 mmol/L (136-145) Potassium Level 4.1 mmol/L (3.5-5.1) Chloride Level 104 mmol/L (98-107) Carbon Dioxide Level 32 mmol/L (21-32) Anion Gap 9 (6-14) Blood Urea Nitrogen 21 mg/dL (7-20) Creatinine 1.1 mg/dL (0.6-1.0) Estimated GFR (Cockcroft-Gault) 48.2 BUN/Creatinine Ratio 19 (6-20) Glucose Level 124 mg/dL (70-99) Calcium Level 9.1 mg/dL (8.5-10.1) Magnesium Level 2.5 mg/dL (1.8-2.4) Total Bilirubin 1.9 mg/dL (0.2-1.0) Aspartate Amino Transf (AST/SGOT) 23 U/L (15-37) Alanine Aminotransferase (ALT/SGPT) 14 U/L (14-59) Alkaline Phosphatase 135 U/L (46-116) Troponin I Quantitative 0.203 ng/mL (0.000-0.055) EG-Qqk-J-Type Natriuretic Peptide 94866 pg/mL (0-449) Total Protein 7.4 g/dL (6.4-8.2) Albumin 3.9 g/dL (3.4-5.0) Albumin/Globulin Ratio 1.1 (1.0-1.7) Urine Collection Type U cath Urine Color Yellow Urine Clarity Clear Urine pH 7.0 Urine Specific [place] 1.010 Urine Protein Negative mg/dL (NEG-TRACE) Urine Glucose (UA) Negative mg/dL (NEG) Urine Ketones (Stick) Negative mg/dL (NEG) Urine Blood Negative (NEG) Urine Nitrite Negative (NEG) Urine Bilirubin Negative (NEG) Urine Urobilinogen Dipstick 0.2 mg/dL (0.2 mg/dL) Urine Leukocyte Esterase Negative (NEG) Urine RBC 0 /HPF (0-2) Urine WBC 0 /HPF (0-4) Urine Bacteria 0 /HPF (0-FEW) Urine Hyaline Casts Few /HPF ECHOCARDIOGRAM ECHOCARDIOGRAM <Conclusion> The left ventricle is normal size. Left ventricle systolic function is normal. The Ejection Fraction is 55-60%. There is no significant aortic valvular stenosis. Doppler and Color Flow revealed no significant aortic regurgitation. Doppler and Color-flow revealed mild mitral regurgitation. Doppler and Color Flow revealed moderately severe tricuspid regurgitation. There is severe pulmonary hypertension. The PA pressure was estimated at 76 mmHg. DATE: 09/22/15 1558 STRESS TEST STRESS TEST Conclusion 1. No evidence of stress induced EKG changes 2. No significant ischemia noted. 3. Fixed defects as noted above likely related to motion artifact. 4. Normal EF. 5. Low riks study. 6. Technically difficult study. DATE: 09/27/15 1558 ASSESSMENT/PLAN ASSESSMENT/PLAN 1. Acute on chronic respiratory failure with AECOPD with possible CAP 2. Acute on chronic diastolic CHF 3. Secondary pulmonary HTN/Cor pulmonale: Known for O2 supplement noncompliance with continued tobaccoism 4. Elevated troponin: 0.2 initial. EKG AFIB without acute changes. Likely demand mediated 5. Chronic AFIB: remains controlled 6. HTN: labile 7. DM2 8. CAD: 04/30/2011 last [facility] with patent RCA. stable. No CP, palpitations, leading admission. 9. Hypoxic encephalopathy Recommendations 1. Continue home AFIB regimen with pradaxa. 2. Diuretic therapy 3. Trend troponin, TTE 4. Bipap. Pulmonary consult pending 5. Will need closer supervision upon DC. 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
[2016-09-06 13:52] LABS: CREATININE 1.1 mg/dL (0.6-1.0); GFR 48.2; POTASSIUM 4.2 mmol/L (3.5-5.1)
[2016-09-06] MEDS: POTASSIUM CHLORIDE 20 MEQ TABLET.ER. PO SCH ×2 (14:00→17:00)
--- NOTE | 2016-09-06 14:07 | RAD ---
Indication right pleural effusion. Assess for potential pneumonia. Note is made of a previous examination 09/22/2015. Noncontrast imaging through the chest was performed. Imaging through the upper abdomen demonstrates a trace amount of perihepatic fluid. An acute finding in the upper abdomen is not seen. There is heavy calcification of the visualized abdominal aorta. Significant coronary artery calcification is additionally noted. There is mild cardiomegaly. There is a trace amount of pericardial fluid similar to the previous exam. There are few mediastinal lymph nodes. These are of doubtful clinical significance and appear similar to the previous exam. There is some right pleural fluid some of which is almost certainly loculated. The amount of pleural fluid is probably slightly less than on the previous exam. There is some volume loss in the right lung which is most compatible with passive atelectasis associated with the pleural fluid. A superimposed inflammatory component could not be entirely excluded but given the similar appearance compared to the exam almost one year ago pneumonia, as the major component, is felt less likely. A dominant soft tissue mass in aerated lung is not seen. Kyphoplasty changes are noted associated with a lower thoracic vertebral body segment. IMPRESSION: Right pleural effusion some of which is loculated. The amount of pleural fluid is slightly less than on examination a year ago. Volume loss in the right lung is probably chronic. An associated inflammatory component accounting for some of the volume loss is is not entirely excluded PQRS Compliance Statement: One or more of the following individualized dose reduction techniques were utilized for this examination: 1. Automated exposure control 2. Adjustment of the mA and/or kV according to patient size 3. Use of iterative reconstruction technique
--- NOTE | 2016-09-06 15:19 | PDOC2 ---
Pulmonary Consultation Medications Current Medications Albuterol/ Ipratropium (Duoneb) 3 ml 1X ONCE NEB Last administered on 10:56; Start 09/06/16 at 10:30; Stop 09/06/16 at 10:31; Status DC Albuterol Sulfate (Ventolin Neb Soln) 7.5 mg 1X ONCE CONT NEB Last administered on 09/06/16 10:55; Start 09/06/16 at 10:45; Stop 09/06/16 at 10:46 ; Status DC Methylprednisolone Sodium Succinate (SOLU-Medrol 125MG VIAL) 125 mg 1X ONCE IV Last administered on 09/06/16 11:06; Start 09/06/16 at 11:15; Stop 09/06/16 at 11:16; Status DC Sodium Chloride 1,000 ml @ 1,000 mls/hr 1X ONCE IV ; Start 09/06/16 at 11:00; Stop 09/06/16 at 11:00; Status DC Vancomycin HCl (Vanco Per Pharmacy) 1 each PRN DAILY PRN MC SEE COMMENTS Last administered on 09/06/16 13:13; Start 09/06/16 at 11:15 Levofloxacin/ Dextrose (Levaquin Per Pharmacy) 1 each PRN DAILY PRN MC SEE COMMENTS; Start 09/06/16 at 11:15; Status UNV Piperacillin Sod/ Tazobactam Sod (Zosyn Per Pharmacy) 1 each PRN DAILY PRN MC SEE COMMENTS; Start 09/06/16 at 11:15; Status UNV Sodium Chloride 500 ml @ 500 mls/hr 1X ONCE IV Last administered on 11:23; Start 09/06/16 at 11:30; Stop 09/06/16 at 12:29; Status DC Vancomycin HCl 1.5 gm/Sodium Chloride 500 ml @ 250 mls/hr 1X ONCE IV Last administered on 09/06/16 12:13; Start 09/06/16 at 11:30; Stop 09/06/16 at 13:29 ; Status DC Levofloxacin/ Dextrose 150 ml @ 100 mls/hr Q48H IV Last administered on 11:42; Start 09/06/16 at 12:00 Piperacillin Sod/ Tazobactam Sod 2.25 gm/Sodium Chloride 50 ml @ 100 mls/hr Q6HRS IV Last administered on 09/06/16 11:24; Start 09/06/16 at 12:00 Furosemide (Lasix) 40 mg 1X ONCE IVP Last administered on 09/06/16 11:57; Start 09/06/16 at 12:00; Stop 09/06/16 at 12:01; Status DC Pantoprazole Sodium (Protonix) 40 mg DAILY PO ; Start 09/07/16 at 09:00 Metoprolol Succinate (Toprol Xl) 25 mg DAILY PO ; Start 09/07/16 at 09:00 Digoxin (Lanoxin) 125 mcg DAILY PO ; Start 09/07/16 at 09:00 Furosemide (Lasix) 40 mg Q12HR IVP ; Start 09/06/16 at 21:00 Potassium Chloride (Klor-Con) 20 meq TIDWMEALS PO ; Start 09/06/16 at 14:00 Sertraline HCl (Zoloft) 50 mg DAILY PO ; Start 09/07/16 at 09:00 Atorvastatin Calcium (Lipitor) 20 mg QHS PO ; Start 09/06/16 at 21:00 Dabigatran (Pradaxa) 75 mg BID PO ; Start 09/06/16 at 21:00 Albuterol Sulfate (Ventolin Neb Soln) 2.5 mg PRN Q4HRS PRN NEB WHEEZING; Start 09/06/16 at 13:15 Lorazepam (Ativan) 0.5 mg PRN Q8HRS PRN PO ANXIETY / AGITATION; Start 09/06/16 at 13:00 Acetaminophen (Tylenol) 325 mg Q4HRS PRN PO MILD PAIN / TEMP; Start 09/06/16 at 13:00 Insulin Aspart (NovoLOG) 0-6 UNITS TIDWMEALS SQ ; Start 09/06/16 at 17:00 Info (Anti-Coagulation Monitoring By Pharmacy) 1 each PRN DAILY PRN MC SEE COMMENTS; Start 09/06/16 at 13:15 Vancomycin HCl 1 gm/Sodium Chloride 250 ml @ 250 mls/hr Q24H IV ; Start at 12:00 Vancomycin HCl 1 each 1X ONCE MC ; Start 09/08/16 at 11:30; Stop 09/08/16 at 11 :31 Active Scripts Active Furosemide 80 Mg Tablet 1 Tab PO BID 30 Days Vitamin C (Ascorbic Acid) 500 Mg Tablet 500 Mg PO DAILY 30 Days Ativan (Lorazepam) 0.5 Mg Tablet 0.25 Mg PO PRN TID PRN 30 Days Amaryl (Glimepiride) 2 Mg Tablet 1 Mg PO DAILY 30 Days Klor-Con M20 (Potassium Chloride) 20 Meq Tab.er.prt 20 Meq PO TIDWMEALS 30 Days Sertraline Hcl 50 Mg Tablet 50 Mg PO DAILY 30 Days Spiriva (Tiotropium [place]) 18 Mcg Cap.w.dev 1 Cap IH DAILY Pradaxa (Dabigatran Etexilate Mesylate) 150 Mg Capsule 150 Mg PO BID Reported Lasix (Furosemide) 40 Mg Tablet 80 Mg PO BID Protonix (Pantoprazole Sodium) 40 Mg Tablet.dr 1 Tab PO DAILYAC NITROGLYCERIN SubLingual (Nitroglycerin) 0.4 Mg Tab.subl 0.4 Mg SL PRN Q5MIN PRN Metoprolol Tartrate 25 Mg Tablet 1 Tab PO DAILY Lipitor (Atorvastatin Calcium) 20 Mg Tablet 20 Mg PO HS Albuterol Sulfate Neb Soln (Albuterol Sulfate) 2.5 Mg/3 Ml Vial.neb 1 Vial NEB PRN Q4HRS PRN Digoxin 125 Mcg Tablet 1 Tab PO DAILY Allergies Allergies Coded Allergies Type Severity Reaction Last Updated Verified aspirin Allergy Intermediate OK with 81mg dose 07/17/16 Yes hydrocodone Allergy Intermediate tramadol ok 07/17/16 Yes iodine Allergy Intermediate 07/17/16 Yes lisinopril Allergy Intermediate 07/17/16 Yes metformin Allergy Intermediate 07/17/16 Yes I S O L A T I O N *CONTACT* Allergy Unknown 07/17/16 Yes Vital Signs Vital Signs Date Time Temp Pulse Resp B/P (MAP) Pulse Ox O2 Delivery O2 Flow Rate FiO2 09/06/16 14:29 Bi-pap 09/06/16 13:56 94 09/06/16 13:19 74 140/92 (108) 09/06/16 10:06 98.3 28 98.3 Last Labs Laboratory Tests Test 09/06/16 10:25 09/06/16 11:00 09/06/16 12:00 09/06/16 13:32 White Blood Count 12.0 x10^3/uL (4.0-11.0) Red Blood Count 5.34 x10^6/uL (3.50-5.40) Hemoglobin 12.2 g/dL (12.0-15.5) Hematocrit 40.4 % (36.0-47.0) Mean Corpuscular Volume 76 fL (79-100) Mean Corpuscular Hemoglobin 23 pg (25-35) Mean Corpuscular Hemoglobin Concent 30 g/dL (31-37) Red Cell Distribution Width 21.4 % (11.5-14.5) Platelet Count 188 x10^3/uL (140-400) Neutrophils (%) (Auto) 88 % (31-73) Lymphocytes (%) (Auto) 7 % (24-48) Monocytes (%) (Auto) 5 % (0-9) Eosinophils (%) (Auto) 0 % (0-3) Basophils (%) (Auto) 1 % (0-3) Neutrophils # (Auto) 10.6 x10^3uL (1.8-7.7) Lymphocytes # (Auto) 0.8 x10^3/uL (1.0-4.8) Monocytes # (Auto) 0.6 x10^3/uL (0.0-1.1) Eosinophils # (Auto) 0.0 x10^3/uL (0.0-0.7) Basophils # (Auto) 0.1 x10^3/uL (0.0-0.2) Segmented Neutrophils % 86 % (35-66) Lymphocytes % 10 % (24-48) Monocytes % 3 % (0-10) Basophils % 1 % (0-3) Platelet Estimate Adequate (ADEQUATE) Anisocytosis Slight Prothrombin Time 17.3 SEC (11.7-14.0) Prothromb Time International Ratio 1.5 (0.8-1.1) Lactic Acid Level 2.8 mmol/L (0.4-2.0) 1.6 mmol/L (0.4-2.0) Sodium Level 145 mmol/L (136-145) 144 mmol/L (136-145) Potassium Level 4.1 mmol/L (3.5-5.1) 4.2 mmol/L (3.5-5.1) Chloride Level 104 mmol/L (98-107) 104 mmol/L (98-107) Carbon Dioxide Level 32 mmol/L (21-32) 34 mmol/L (21-32) Anion Gap 9 (6-14) 6 (6-14) Blood Urea Nitrogen 21 mg/dL (7-20) 18 mg/dL (7-20) Creatinine 1.1 mg/dL (0.6-1.0) 1.1 mg/dL (0.6-1.0) Estimated GFR (Cockcroft-Gault) 48.2 48.2 BUN/Creatinine Ratio 19 (6-20) Glucose Level 124 mg/dL (70-99) 139 mg/dL (70-99) Calcium Level 9.1 mg/dL (8.5-10.1) 9.0 mg/dL (8.5-10.1) Magnesium Level 2.5 mg/dL (1.8-2.4) Total Bilirubin 1.9 mg/dL (0.2-1.0) Aspartate Amino Transf (AST/SGOT) 23 U/L (15-37) Alanine Aminotransferase (ALT/SGPT) 14 U/L (14-59) Alkaline Phosphatase 135 U/L (46-116) Troponin I Quantitative 0.203 ng/mL (0.000-0.055) IS-Fvi-T-Type Natriuretic Peptide 71903 pg/mL (0-449) Total Protein 7.4 g/dL (6.4-8.2) Albumin 3.9 g/dL (3.4-5.0) Albumin/Globulin Ratio 1.1 (1.0-1.7) Urine Collection Type U cath Urine Color Yellow Urine Clarity Clear Urine pH 7.0 Urine Specific [place] 1.010 Urine Protein Negative mg/dL (NEG-TRACE) Urine Glucose (UA) Negative mg/dL (NEG) Urine Ketones (Stick) Negative mg/dL (NEG) Urine Blood Negative (NEG) Urine Nitrite Negative (NEG) Urine Bilirubin Negative (NEG) Urine Urobilinogen Dipstick 0.2 mg/dL (0.2 mg/dL) Urine Leukocyte Esterase Negative (NEG) Urine RBC 0 /HPF (0-2) Urine WBC 0 /HPF (0-4) Urine Bacteria 0 /HPF (0-FEW) Urine Hyaline Casts Few /HPF Assessment FULL CONSULT DICTATED [id number] A/C RESP FAILURE POSSIBLE SEPSIS AECOPD ACUTE D HEART FAILURE Plan SEE ORDERS THANKS GAYLE VALDEZ MD Sep 06, 2016 15:19
[2016-09-06] MEDS ORDERED: LORA0.5T PO (15:22)
[2016-09-06] MEDS: INSULIN ASPART 300 UNITS/3 ML INSULN.PEN SQ SCH (17:00)
[2016-09-06 18:22] LABS: PO2 ABG < 42 mmHg (65-108)
[2016-09-06 18:23] LABS: SAT O2 ABG 45 % (92-99)
[2016-09-06] MEDS: DABIGATRAN ETEXILATE 75 MG CAPSULE. PO SCH (21:00)
[2016-09-06] MEDS: ATORVASTATIN CALCIUM 20 MG TABLET PO SCH (21:00)
[2016-09-06] MEDS: FUROSEMIDE 40 MG/4 ML VIAL. IVP SCH (21:06)
--- NOTE | 2016-09-06 21:51 | HP ---
ADMIT DATE: 09/06/2016 HISTORY OF PRESENT ILLNESS: The patient is a 75-year-old white female with history of chronic diastolic congestive heart failure and chronic hypoxic respiratory failure, who has persistent atrial fibrillation, maintained on Pradaxa, and has a history of diabetes mellitus type 2, chronic obstructive pulmonary disease, coronary artery disease, hypertension, hyperlipidemia and a gluteal wound, [facility], who was admitted to [facility] through the Emergency Room on 09/06/2016 with onset of shortness of breath. The patient apparently according to her daughter had not taken any of her medications since Saturday and went to the patient's place of living and the patient was apparently nude and the daughter realized that the patient had not taken any of her medications since Saturday. The patient was sent by EMT to the [facility] Emergency Room where a proBNP was quite high and a chest x-ray showed an increasing right pleural effusion consistent with congestive heart failure. The patient also was noted to have acute hypoxic respiratory failure and had to be placed on BiPAP. In addition, she had a metabolic encephalopathy, could not give much of history at all and was confused. The patient is a do not resuscitate as per her daughter. These apparently have been the patient's wishes also. The patient is therefore admitted to the hospital for further evaluation of [id number] diastolic congestive heart failure, [id number] hypoxic respiratory failure and metabolic encephalopathy. ALLERGIES AND INTOLERANCES: INCLUDE ASPIRIN, HYDROCODONE, IODINE, LISINOPRIL, METFORMIN, NARCOTICS AND TRAMADOL TEND TO CAUSE CONFUSION. MEDICATIONS PRIOR TO ADMISSION: Include glimepiride 1 mg every day, Protonix 40 mg every day, metoprolol succinate 25 mg every day, digoxin 125 mcg every day, potassium chloride 20 mEq t.i.d., sertraline 50 mg every day, atorvastatin 20 mg every day, Furosemide 80 mg p.o. b.i.d., lorazepam 0.5 mg t.i.d., Pradaxa 150 mg b.i.d., Spiriva 1 puff every day, albuterol nebulizer p.r.n. PAST MEDICAL HISTORY: Significant for chronic diastolic congestive heart failure; persistent atrial fibrillation, maintained on Pradaxa; chronic obstructive pulmonary disease; chronic hypoxic respiratory failure, maintained on home oxygen; diabetes mellitus; hypertension; hyperlipidemia and osteoporosis. She also has a history of coronary artery disease. She has pulmonary hypertension. She has had peripheral neuropathy. She had a GI bleed in the past. She has diabetic nephropathy stage 3 with chronic kidney disease stage 3. She also has a history of osteoarthritis and osteoporosis. She also has osteoporosis as mentioned and she has had vertebroplasty and I believe sacroplasty in the past. SOCIAL HISTORY: She does smoke one pack per day of cigarettes. Does not drink alcohol. FAMILY HISTORY: Not contributory. REVIEW OF SYSTEMS: Unobtainable. She is on BiPAP right now. PHYSICAL EXAMINATION: VITAL SIGNS: Temperature is 98.3 degrees, apical pulse 78, respiratory rate is 28, blood pressure 144/72, oxygen saturation 95% on BiPAP; when she came in, the oxygen saturation was 79% on room air. HEENT: Eyes: Gaze is conjugate. Mouth is symmetrical. She is wearing BiPAP. HEART: Reveals an S1 and S2. There is no S3 or murmur. LUNGS: Revealed decreased breath sounds anteriorly. ABDOMEN: Soft and nontender. Bowel sounds are positive. EXTREMITIES: Lower extremities with 1+ edema. SKIN: No rashes. NEUROLOGIC: Her eyes are open, but she does not answer questions. SKIN: No rashes. LABORATORY AND IMAGING DATA: In review of her labs, white count 12.0, hemoglobin 12.2 with a platelet count of 188,000 with 88 polys and 7 lymphocytes. Sodium of 145, potassium of 4.1, chloride of 104, total CO2 of 32, BUN of 21, creatinine of 1.1, estimated GFR of 48.2, total bilirubin of 1.9, magnesium of 2.5, proBNP was increased at 10,461, albumin of 3.9. SGOT and SGPT were okay. Total bilirubin of 1.9 with an alkaline phosphatase of 135. Lactic acid level increased to 2.8. Urinalysis showed no white blood cells. She did have an electrocardiogram, which showed atrial fibrillation. The chest x-ray showed increased right pleural effusion, which was moderate in size and also moderate cardiomegaly. She had vertebroplasty changes noted at the thoracic and lumbar spine. Heart was moderately enlarged. ASSESSMENT: 1. Acute on chronic diastolic congestive heart failure. 2. Acute on chronic hypoxic respiratory failure. 3. Persistent atrial fibrillation. 4. Metabolic encephalopathy. 5. Moderate-sized right pleural effusion. 6. Diabetes mellitus with nephropathy. 7. Chronic kidney disease stage 3. 8. Coronary artery disease. 9. Chronic obstructive pulmonary disease. 10. Gluteal wound. She has been going to the wound clinic for this. 11. Hyperlipidemia. 12. Hypertension. PLAN: At this time is to consult Dr. Walter Hale for Infectious Disease, Dr. Aguilera for Pulmonary and Dr. Bryant for Cardiology, and we will also get a CT of the chest without contrast to rule out pneumonia. Start her on some IV Lasix 40 mg IV every 12 hours and resume her home medications, but we will decrease her Pradaxa to 75 mg b.i.d. based on her estimated GFR and we may also check a digoxin level tomorrow, CBC, BMP, and magnesium level. We will order SCDs for deep vein thrombosis prophylaxis. Continue with her BiPAP. She is also currently receiving IV antibiotics. In case she has a concomitant pneumonia, she is receiving IV Levaquin, IV Zosyn and IV vancomycin. She did receive a dose of IV Solu-Medrol in the Emergency Room. I discussed the case with the patient's daughter who wishes her to be a do not resuscitate, and I believe she has been a do not resuscitate in the past also. MOR MALCOLM MD DR: JOSEMANUEL/harry JOB#: [id number] / [id number]
[2016-09-07] VITALS (24 sets, daily range): BP systolic 81–121; BP diastolic 46–60
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
[2016-09-07 05:05] LABS: BASO % 0 % (0-3); EOS % 0 % (0-3); HEMATOCRIT 37.2 % (36.0-47.0); LYMPH # 0.7 x10^3/uL (1.0-4.8); LYMPH % 8 % (24-48); MEAN CORPUSCULAR HEMOGLOBIN 23 pg (25-35); MEAN CORPUSCULAR HGB CONC 29 g/dL (31-37); MEAN CORPUSCULAR VOLUME 76 fL (79-100); MONO % 7 % (0-9); NEUT % 85 % (31-73); PLATELET COUNT 157 x10^3/uL (140-400); RED BLOOD COUNT 4.87 x10^6/uL (3.50-5.40); RED CELL DISTRIBUTION WIDTH 21.3 % (11.5-14.5); WHITE BLOOD COUNT 9.3 x10^3/uL (4.0-11.0)
[2016-09-07 05:43] LABS: CALCIUM 8.1 mg/dL (8.5-10.1); CREATININE 1.2 mg/dL (0.6-1.0); GFR 43.6; POTASSIUM 3.6 mmol/L (3.5-5.1)
[2016-09-07 05:44] LABS: MAGNESIUM 2.2 mg/dL (1.8-2.4)
[2016-09-07] MEDS: PIPERACILLIN/TAZOBACTAM 2.25 GM in IV NORMAL SALINE 50ML 50 ML IV SCH ×4 (05:49→23:57)
[2016-09-07 07:49] LABS: HCO3 ABG 33 mmol/L (21-28); PCO2 ABG 53 mmHg (35-46); PH ABG 7.41 (7.35-7.45); PO2 ABG 77 mmHg (65-108); SAT O2 ABG 94 % (92-99)
[2016-09-07 07:52] LABS: FIO2 ABG 50
[2016-09-07] MEDS: INSULIN ASPART 300 UNITS/3 ML INSULN.PEN SQ SCH ×3 (08:00→17:00)
--- NOTE | 2016-09-07 08:12 | PDOC ---
Infectious Disease Note Vital Sign Vital Signs Vital Signs Date Time Temp Pulse Resp B/P (MAP) Pulse Ox O2 Delivery O2 Flow Rate FiO2 09/07/16 07:38 95 BiPAP/CPAP 09/07/16 07:00 74 20 98/52 (67) 09/07/16 04:00 97.7 97.7 Labs Lab Laboratory Tests Test 09/06/16 10:25 09/06/16 11:00 09/06/16 12:00 09/06/16 13:32 White Blood Count 12.0 x10^3/uL (4.0-11.0) Red Blood Count 5.34 x10^6/uL (3.50-5.40) Hemoglobin 12.2 g/dL (12.0-15.5) Hematocrit 40.4 % (36.0-47.0) Mean Corpuscular Volume 76 fL (79-100) Mean Corpuscular Hemoglobin 23 pg (25-35) Mean Corpuscular Hemoglobin Concent 30 g/dL (31-37) Red Cell Distribution Width 21.4 % (11.5-14.5) Platelet Count 188 x10^3/uL (140-400) Neutrophils (%) (Auto) 88 % (31-73) Lymphocytes (%) (Auto) 7 % (24-48) Monocytes (%) (Auto) 5 % (0-9) Eosinophils (%) (Auto) 0 % (0-3) Basophils (%) (Auto) 1 % (0-3) Neutrophils # (Auto) 10.6 x10^3uL (1.8-7.7) Lymphocytes # (Auto) 0.8 x10^3/uL (1.0-4.8) Monocytes # (Auto) 0.6 x10^3/uL (0.0-1.1) Eosinophils # (Auto) 0.0 x10^3/uL (0.0-0.7) Basophils # (Auto) 0.1 x10^3/uL (0.0-0.2) Segmented Neutrophils % 86 % (35-66) Lymphocytes % 10 % (24-48) Monocytes % 3 % (0-10) Basophils % 1 % (0-3) Platelet Estimate Adequate (ADEQUATE) Anisocytosis Slight Prothrombin Time 17.3 SEC (11.7-14.0) Prothromb Time International Ratio 1.5 (0.8-1.1) O2 Saturation 45 % (92-99) Arterial Blood pH 7.37 (7.35-7.45) Arterial Blood pCO2 at Patient Temp 52 mmHg (35-46) Arterial Blood pO2 at Patient Temp < 42 mmHg (65-108) Arterial Blood HCO3 29 mmol/L (21-28) Arterial Blood Base Excess 3 mmol/L (-3-3) FiO2 50.0 Lactic Acid Level 2.8 mmol/L (0.4-2.0) 1.6 mmol/L (0.4-2.0) Sodium Level 145 mmol/L (136-145) 144 mmol/L (136-145) Potassium Level 4.1 mmol/L (3.5-5.1) 4.2 mmol/L (3.5-5.1) Chloride Level 104 mmol/L (98-107) 104 mmol/L (98-107) Carbon Dioxide Level 32 mmol/L (21-32) 34 mmol/L (21-32) Anion Gap 9 (6-14) 6 (6-14) Blood Urea Nitrogen 21 mg/dL (7-20) 18 mg/dL (7-20) Creatinine 1.1 mg/dL (0.6-1.0) 1.1 mg/dL (0.6-1.0) Estimated GFR (Cockcroft-Gault) 48.2 48.2 BUN/Creatinine Ratio 19 (6-20) Glucose Level 124 mg/dL (70-99) 139 mg/dL (70-99) Calcium Level 9.1 mg/dL (8.5-10.1) 9.0 mg/dL (8.5-10.1) Magnesium Level 2.5 mg/dL (1.8-2.4) Total Bilirubin 1.9 mg/dL (0.2-1.0) Aspartate Amino Transf (AST/SGOT) 23 U/L (15-37) Alanine Aminotransferase (ALT/SGPT) 14 U/L (14-59) Alkaline Phosphatase 135 U/L (46-116) Troponin I Quantitative 0.203 ng/mL (0.000-0.055) QY-Vae-E-Type Natriuretic Peptide 43316 pg/mL (0-449) Total Protein 7.4 g/dL (6.4-8.2) Albumin 3.9 g/dL (3.4-5.0) Albumin/Globulin Ratio 1.1 (1.0-1.7) Urine Collection Type U cath Urine Color Yellow Urine Clarity Clear Urine pH 7.0 Urine Specific [place] 1.010 Urine Protein Negative mg/dL (NEG-TRACE) Urine Glucose (UA) Negative mg/dL (NEG) Urine Ketones (Stick) Negative mg/dL (NEG) Urine Blood Negative (NEG) Urine Nitrite Negative (NEG) Urine Bilirubin Negative (NEG) Urine Urobilinogen Dipstick 0.2 mg/dL (0.2 mg/dL) Urine Leukocyte Esterase Negative (NEG) Urine RBC 0 /HPF (0-2) Urine WBC 0 /HPF (0-4) Urine Bacteria 0 /HPF (0-FEW) Urine Hyaline Casts Few /HPF Test 09/06/16 14:35 09/06/16 18:05 09/06/16 18:21 09/07/16 00:05 Nasal Screen MRSA (PCR) Positive (Negative) Troponin I Quantitative 0.192 ng/mL (0.000-0.055) 0.251 ng/mL (0.000-0.055) Glucose (Fingerstick) 128 mg/dL (70-99) Test 09/07/16 04:40 09/07/16 04:45 09/07/16 07:40 White Blood Count 9.3 x10^3/uL (4.0-11.0) Red Blood Count 4.87 x10^6/uL (3.50-5.40) Hemoglobin 11.0 g/dL (12.0-15.5) Hematocrit 37.2 % (36.0-47.0) Mean Corpuscular Volume 76 fL (79-100) Mean Corpuscular Hemoglobin 23 pg (25-35) Mean Corpuscular Hemoglobin Concent 29 g/dL (31-37) Red Cell Distribution Width 21.3 % (11.5-14.5) Platelet Count 157 x10^3/uL (140-400) Neutrophils (%) (Auto) 85 % (31-73) Lymphocytes (%) (Auto) 8 % (24-48) Monocytes (%) (Auto) 7 % (0-9) Eosinophils (%) (Auto) 0 % (0-3) Basophils (%) (Auto) 0 % (0-3) Neutrophils # (Auto) 7.9 x10^3uL (1.8-7.7) Lymphocytes # (Auto) 0.7 x10^3/uL (1.0-4.8) Monocytes # (Auto) 0.6 x10^3/uL (0.0-1.1) Eosinophils # (Auto) 0.0 x10^3/uL (0.0-0.7) Basophils # (Auto) 0.0 x10^3/uL (0.0-0.2) Sodium Level 148 mmol/L (136-145) Potassium Level 3.6 mmol/L (3.5-5.1) Chloride Level 107 mmol/L (98-107) Carbon Dioxide Level 34 mmol/L (21-32) Anion Gap 7 (6-14) Blood Urea Nitrogen 21 mg/dL (7-20) Creatinine 1.2 mg/dL (0.6-1.0) Estimated GFR (Cockcroft-Gault) 43.6 Glucose Level 90 mg/dL (70-99) Calcium Level 8.1 mg/dL (8.5-10.1) Magnesium Level 2.2 mg/dL (1.8-2.4) Digoxin Level 0.9 ng/mL (0.9-2.0) Digoxin Last Dose Date 09/03/16 Digoxin Last Dose Time 0900 O2 Saturation 94 % (92-99) Arterial Blood pH 7.41 (7.35-7.45) Arterial Blood pCO2 at Patient Temp 53 mmHg (35-46) Arterial Blood pO2 at Patient Temp 77 mmHg (65-108) Arterial Blood HCO3 33 mmol/L (21-28) Arterial Blood Base Excess 7 mmol/L (-3-3) FiO2 50 Objective Assessment Acute respiratory failure Encephalopathy Leukocytosis Pulmonary infiltrate A fib CHF Pleural effusion Plan Plan of Care cont vanc, zosyn and levaquin for now supportive care check cultures and adjust SWAPNA FRAGA MD Sep 07, 2016 08:12
[2016-09-07] MEDS: METOPROLOL SUCC 24HR ER 25 MG TAB.ER.24H. PO SCH (09:00)
--- NOTE | 2016-09-07 09:03 | RAD ---
INDICATION: Respiratory failure COMPARISON: 1 day prior FINDINGS: Single view of chest obtained. Enlarged cardiac silhouette with calcific atherosclerosis. Focal opacity in the right mid to lower lung with blunting of right costophrenic angle. IMPRESSION: Focal opacity in the right mid to lower lung. Could be secondary to a region of airspace consolidation and pleural effusion. This appears redistributed when compared to prior with slightly better aeration at right lung base but more focal opacity in the right mid to upper lung. Cardiac silhouette is again enlarged.
[2016-09-07] MEDS: POTASSIUM CHLORIDE 20 MEQ TABLET.ER. PO SCH ×2 (09:31→17:49)
[2016-09-07] MEDS: SERTRALINE 50 MG TABLET. PO SCH (09:31)
[2016-09-07] MEDS: DABIGATRAN ETEXILATE 75 MG CAPSULE. PO SCH ×2 (09:31→20:36)
[2016-09-07] MEDS: DIGOXIN 125 MCG TABLET. PO SCH (09:32)
[2016-09-07] MEDS: FUROSEMIDE 40 MG/4 ML VIAL. IVP SCH (09:32)
[2016-09-07] MEDS: PANTOPRAZOLE 40 MG TABLET.DR. PO SCH (09:33)
--- NOTE | 2016-09-07 11:09 | PDOC ---
PROGRESS NOTES Subjective Subjective off of bipap on oxygen 3LNC . alert and weak and cant give any details about what happened at home prior to admission. lab reviewed. ct chest shows loculated right pleural effusion. sodium 148. Objective Objective Vital Signs Date Time Temp Pulse Resp B/P (MAP) Pulse Ox O2 Delivery O2 Flow Rate FiO2 09/07/16 10:00 66 20 108/54 (72) 96 Nasal Cannula 3.0 09/07/16 08:00 99.0 99.0 Intake and Output 09/07/16 07:00 Intake Total 750 ml Output Total 800 ml Balance -50 ml Intake Oral 100 ml IV Total 650 ml Output Urine Total 800 ml Physical Exam Abdomen: Soft Heart: Regular rate, Normal S1, Normal S2 Extremities: No edema General: Alert HEENT: Atraumatic Lungs: Clear to auscultation Neuro: Other (speaks slowly) Psych/Mental Status: Mental status NL Skin: No rashes Assessment Assessment Problems1. Acute on chronic diastolic congestive heart failure. 2. Acute on chronic hypoxic and hypercapnic respiratory failure. 3. Persistent atrial fibrillation. rate controlled 4. Metabolic encephalopathy. improved 5. loculated right pleural effusion. 6. Diabetes mellitus with nephropathy. 7. Chronic kidney disease stage 3. 8. Coronary artery disease. 9. Chronic obstructive pulmonary disease. 10. Gluteal wound. She has been going to the wound clinic for this. 11. Hyperlipidemia. 12. Hypertension. hypernatremia Medical Problems: (1) Acute and chronic respiratory failure Status: Acute (2) CHF exacerbation Status: Acute (3) COPD exacerbation Status: Acute Plan Plan of Care d/c iv lasix start oral lasix 40 mg po bid. 1/2 dose at home labs tomorrow continue oxygen and prn nebulizer rx PT and OT continue pradaxa iv vancomycin and levaquin and zosyn per ID Comment Review of Relevant I have reviewed the following items nikita (where applicable) has been applied. Labs Laboratory Tests Test 09/06/16 10:25 09/06/16 11:00 09/06/16 12:00 09/06/16 13:32 White Blood Count 12.0 x10^3/uL (4.0-11.0) Red Blood Count 5.34 x10^6/uL (3.50-5.40) Hemoglobin 12.2 g/dL (12.0-15.5) Hematocrit 40.4 % (36.0-47.0) Mean Corpuscular Volume 76 fL (79-100) Mean Corpuscular Hemoglobin 23 pg (25-35) Mean Corpuscular Hemoglobin Concent 30 g/dL (31-37) Red Cell Distribution Width 21.4 % (11.5-14.5) Platelet Count 188 x10^3/uL (140-400) Neutrophils (%) (Auto) 88 % (31-73) Lymphocytes (%) (Auto) 7 % (24-48) Monocytes (%) (Auto) 5 % (0-9) Eosinophils (%) (Auto) 0 % (0-3) Basophils (%) (Auto) 1 % (0-3) Neutrophils # (Auto) 10.6 x10^3uL (1.8-7.7) Lymphocytes # (Auto) 0.8 x10^3/uL (1.0-4.8) Monocytes # (Auto) 0.6 x10^3/uL (0.0-1.1) Eosinophils # (Auto) 0.0 x10^3/uL (0.0-0.7) Basophils # (Auto) 0.1 x10^3/uL (0.0-0.2) Segmented Neutrophils % 86 % (35-66) Lymphocytes % 10 % (24-48) Monocytes % 3 % (0-10) Basophils % 1 % (0-3) Platelet Estimate Adequate (ADEQUATE) Anisocytosis Slight Prothrombin Time 17.3 SEC (11.7-14.0) Prothromb Time International Ratio 1.5 (0.8-1.1) O2 Saturation 45 % (92-99) Arterial Blood pH 7.37 (7.35-7.45) Arterial Blood pCO2 at Patient Temp 52 mmHg (35-46) Arterial Blood pO2 at Patient Temp < 42 mmHg (65-108) Arterial Blood HCO3 29 mmol/L (21-28) Arterial Blood Base Excess 3 mmol/L (-3-3) FiO2 50.0 Lactic Acid Level 2.8 mmol/L (0.4-2.0) 1.6 mmol/L (0.4-2.0) Sodium Level 145 mmol/L (136-145) 144 mmol/L (136-145) Potassium Level 4.1 mmol/L (3.5-5.1) 4.2 mmol/L (3.5-5.1) Chloride Level 104 mmol/L (98-107) 104 mmol/L (98-107) Carbon Dioxide Level 32 mmol/L (21-32) 34 mmol/L (21-32) Anion Gap 9 (6-14) 6 (6-14) Blood Urea Nitrogen 21 mg/dL (7-20) 18 mg/dL (7-20) Creatinine 1.1 mg/dL (0.6-1.0) 1.1 mg/dL (0.6-1.0) Estimated GFR (Cockcroft-Gault) 48.2 48.2 BUN/Creatinine Ratio 19 (6-20) Glucose Level 124 mg/dL (70-99) 139 mg/dL (70-99) Calcium Level 9.1 mg/dL (8.5-10.1) 9.0 mg/dL (8.5-10.1) Magnesium Level 2.5 mg/dL (1.8-2.4) Total Bilirubin 1.9 mg/dL (0.2-1.0) Aspartate Amino Transf (AST/SGOT) 23 U/L (15-37) Alanine Aminotransferase (ALT/SGPT) 14 U/L (14-59) Alkaline Phosphatase 135 U/L (46-116) Troponin I Quantitative 0.203 ng/mL (0.000-0.055) CM-Jdo-[id number]-Type Natriuretic Peptide 18911 pg/mL (0-449) Total Protein 7.4 g/dL (6.4-8.2) Albumin 3.9 g/dL (3.4-5.0) Albumin/Globulin Ratio 1.1 (1.0-1.7) Urine Collection Type U cath Urine Color Yellow Urine Clarity Clear Urine pH 7.0 Urine Specific [employer] [place] 1.010 Urine Protein Negative mg/dL (NEG-TRACE) Urine Glucose (UA) Negative mg/dL (NEG) Urine Ketones (Stick) Negative mg/dL (NEG) Urine Blood Negative (NEG) Urine Nitrite Negative (NEG) Urine Bilirubin Negative (NEG) Urine Urobilinogen Dipstick 0.2 mg/dL (0.2 mg/dL) Urine Leukocyte Esterase Negative (NEG) Urine RBC 0 /HPF (0-2) Urine WBC 0 /HPF (0-4) Urine Bacteria 0 /HPF (0-FEW) Urine Hyaline Casts Few /HPF Test 09/06/16 14:35 09/06/16 18:05 09/06/16 18:21 09/07/16 00:05 Nasal Screen MRSA (PCR) Positive (Negative) Troponin I Quantitative 0.192 ng/mL (0.000-0.055) 0.251 ng/mL (0.000-0.055) Glucose (Fingerstick) 128 mg/dL (70-99) Test 09/07/16 04:40 09/07/16 04:45 09/07/16 07:40 White Blood Count 9.3 x10^3/uL (4.0-11.0) Red Blood Count 4.87 x10^6/uL (3.50-5.40) Hemoglobin 11.0 g/dL (12.0-15.5) Hematocrit 37.2 % (36.0-47.0) Mean Corpuscular Volume 76 fL (79-100) Mean Corpuscular Hemoglobin 23 pg (25-35) Mean Corpuscular Hemoglobin Concent 29 g/dL (31-37) Red Cell Distribution Width 21.3 % (11.5-14.5) Platelet Count 157 x10^3/uL (140-400) Neutrophils (%) (Auto) 85 % (31-73) Lymphocytes (%) (Auto) 8 % (24-48) Monocytes (%) (Auto) 7 % (0-9) Eosinophils (%) (Auto) 0 % (0-3) Basophils (%) (Auto) 0 % (0-3) Neutrophils # (Auto) 7.9 x10^3uL (1.8-7.7) Lymphocytes # (Auto) 0.7 x10^3/uL (1.0-4.8) Monocytes # (Auto) 0.6 x10^3/uL (0.0-1.1) Eosinophils # (Auto) 0.0 x10^3/uL (0.0-0.7) Basophils # (Auto) 0.0 x10^3/uL (0.0-0.2) Sodium Level 148 mmol/L (136-145) Potassium Level 3.6 mmol/L (3.5-5.1) Chloride Level 107 mmol/L (98-107) Carbon Dioxide Level 34 mmol/L (21-32) Anion Gap 7 (6-14) Blood Urea Nitrogen 21 mg/dL (7-20) Creatinine 1.2 mg/dL (0.6-1.0) Estimated GFR (Cockcroft-Gault) 43.6 Glucose Level 90 mg/dL (70-99) Calcium Level 8.1 mg/dL (8.5-10.1) Magnesium Level 2.2 mg/dL (1.8-2.4) Digoxin Level 0.9 ng/mL (0.9-2.0) Digoxin Last Dose Date 09/03/16 Digoxin Last Dose Time 0900 O2 Saturation 94 % (92-99) Arterial Blood pH 7.41 (7.35-7.45) Arterial Blood pCO2 at Patient Temp 53 mmHg (35-46) Arterial Blood pO2 at Patient Temp 77 mmHg (65-108) Arterial Blood HCO3 33 mmol/L (21-28) Arterial Blood Base Excess 7 mmol/L (-3-3) FiO2 50 Laboratory Tests Test 09/06/16 12:00 09/06/16 13:32 09/06/16 14:35 09/06/16 18:05 Urine Collection Type U cath Urine Color Yellow Urine Clarity Clear Urine pH 7.0 Urine Specific [employer] 1.010 Urine Protein Negative mg/dL (NEG-TRACE) Urine Glucose (UA) Negative mg/dL (NEG) Urine Ketones (Stick) Negative mg/dL (NEG) Urine Blood Negative (NEG) Urine Nitrite Negative (NEG) Urine Bilirubin Negative (NEG) Urine Urobilinogen Dipstick 0.2 mg/dL (0.2 mg/dL) Urine Leukocyte Esterase Negative (NEG) Urine RBC 0 /HPF (0-2) Urine WBC 0 /HPF (0-4) Urine Bacteria 0 /HPF (0-FEW) Urine Hyaline Casts Few /HPF Sodium Level 144 mmol/L (136-145) Potassium Level 4.2 mmol/L (3.5-5.1) Chloride Level 104 mmol/L (98-107) Carbon Dioxide Level 34 mmol/L (21-32) Anion Gap 6 (6-14) Blood Urea Nitrogen 18 mg/dL (7-20) Creatinine 1.1 mg/dL (0.6-1.0) Estimated GFR (Cockcroft-Gault) 48.2 Glucose Level 139 mg/dL (70-99) Lactic Acid Level 1.6 mmol/L (0.4-2.0) Calcium Level 9.0 mg/dL (8.5-10.1) Nasal Screen MRSA (PCR) Positive (Negative) Troponin I Quantitative 0.192 ng/mL (0.000-0.055) Test 09/06/16 18:21 09/07/16 00:05 09/07/16 04:40 09/07/16 04:45 Glucose (Fingerstick) 128 mg/dL (70-99) Troponin I Quantitative 0.251 ng/mL (0.000-0.055) White Blood Count 9.3 x10^3/uL (4.0-11.0) Red Blood Count 4.87 x10^6/uL (3.50-5.40) Hemoglobin 11.0 g/dL (12.0-15.5) Hematocrit 37.2 % (36.0-47.0) Mean Corpuscular Volume 76 fL (79-100) Mean Corpuscular Hemoglobin 23 pg (25-35) Mean Corpuscular Hemoglobin Concent 29 g/dL (31-37) Red Cell Distribution Width 21.3 % (11.5-14.5) Platelet Count 157 x10^3/uL (140-400) Neutrophils (%) (Auto) 85 % (31-73) Lymphocytes (%) (Auto) 8 % (24-48) Monocytes (%) (Auto) 7 % (0-9) Eosinophils (%) (Auto) 0 % (0-3) Basophils (%) (Auto) 0 % (0-3) Neutrophils # (Auto) 7.9 x10^3uL (1.8-7.7) Lymphocytes # (Auto) 0.7 x10^3/uL (1.0-4.8) Monocytes # (Auto) 0.6 x10^3/uL (0.0-1.1) Eosinophils # (Auto) 0.0 x10^3/uL (0.0-0.7) Basophils # (Auto) 0.0 x10^3/uL (0.0-0.2) Sodium Level 148 mmol/L (136-145) Potassium Level 3.6 mmol/L (3.5-5.1) Chloride Level 107 mmol/L (98-107) Carbon Dioxide Level 34 mmol/L (21-32) Anion Gap 7 (6-14) Blood Urea Nitrogen 21 mg/dL (7-20) Creatinine 1.2 mg/dL (0.6-1.0) Estimated GFR (Cockcroft-Gault) 43.6 Glucose Level 90 mg/dL (70-99) Calcium Level 8.1 mg/dL (8.5-10.1) Magnesium Level 2.2 mg/dL (1.8-2.4) Digoxin Level 0.9 ng/mL (0.9-2.0) Digoxin Last Dose Date 09/03/16 Digoxin Last Dose Time 0900 Test 09/07/16 07:40 O2 Saturation 94 % (92-99) Arterial Blood pH 7.41 (7.35-7.45) Arterial Blood pCO2 at Patient Temp 53 mmHg (35-46) Arterial Blood pO2 at Patient Temp 77 mmHg (65-108) Arterial Blood HCO3 33 mmol/L (21-28) Arterial Blood Base Excess 7 mmol/L (-3-3) FiO2 50 Medications Current Medications Albuterol/ Ipratropium (Duoneb) 3 ml 1X ONCE NEB Last administered on 10:56; Start 09/06/16 at 10:30; Stop 09/06/16 at 10:31; Status DC Albuterol Sulfate (Ventolin Neb Soln) 7.5 mg 1X ONCE CONT NEB Last administered on 09/06/16 10:55; Start 09/06/16 at 10:45; Stop 09/06/16 at 10:46 ; Status DC Methylprednisolone Sodium Succinate (SOLU-Medrol 125MG VIAL) 125 mg 1X ONCE IV Last administered on 09/06/16 11:06; Start 09/06/16 at 11:15; Stop 09/06/16 at 11:16; Status DC Sodium Chloride 1,000 ml @ 1,000 mls/hr 1X ONCE IV ; Start 09/06/16 at 11:00; Stop 09/06/16 at 11:00; Status DC Vancomycin HCl (Vanco Per Pharmacy) 1 each PRN DAILY PRN MC SEE COMMENTS Last administered on 09/06/16 13:13; Start 09/06/16 at 11:15 Levofloxacin/ Dextrose (Levaquin Per Pharmacy) 1 each PRN DAILY PRN MC SEE COMMENTS; Start 09/06/16 at 11:15; Status UNV Piperacillin Sod/ Tazobactam Sod (Zosyn Per Pharmacy) 1 each PRN DAILY PRN MC SEE COMMENTS; Start 09/06/16 at 11:15; Status UNV Sodium Chloride 500 ml @ 500 mls/hr 1X ONCE IV Last administered on 11:23; Start 09/06/16 at 11:30; Stop 09/06/16 at 12:29; Status DC Vancomycin HCl 1.5 gm/Sodium Chloride 500 ml @ 250 mls/hr 1X ONCE IV Last administered on 09/06/16 12:13; Start 09/06/16 at 11:30; Stop 09/06/16 at 13:29 ; Status DC Levofloxacin/ Dextrose 150 ml @ 100 mls/hr Q48H IV Last administered on 11:42; Start 09/06/16 at 12:00 Piperacillin Sod/ Tazobactam Sod 2.25 gm/Sodium Chloride 50 ml @ 100 mls/hr Q6HRS IV Last administered on 09/07/16 05:49; Start 09/06/16 at 12:00 Furosemide (Lasix) 40 mg 1X ONCE IVP Last administered on 09/06/16 11:57; Start 09/06/16 at 12:00; Stop 09/06/16 at 12:01; Status DC Pantoprazole Sodium (Protonix) 40 mg DAILY PO Last administered on 09/07/16 09 :33; Start 09/07/16 at 09:00 Metoprolol Succinate (Toprol Xl) 25 mg DAILY PO ; Start 09/07/16 at 09:00 Digoxin (Lanoxin) 125 mcg DAILY PO Last administered on 09/07/16 09:32; Start 09/07/16 at 09:00 Furosemide (Lasix) 40 mg Q12HR IVP Last administered on 09/07/16 09:32; Start 09/06/16 at 21:00 Potassium Chloride (Klor-Con) 20 meq TIDWMEALS PO Last administered on 09:31; Start 09/06/16 at 14:00 Sertraline HCl (Zoloft) 50 mg DAILY PO Last administered on 7/21/17at 09:31; Start 09/07/16 at 09:00 Atorvastatin Calcium (Lipitor) 20 mg QHS PO ; Start 09/06/16 at 21:00 Dabigatran (Pradaxa) 75 mg BID PO Last administered on 09/07/16t 09:31; Start 09/06/16 at 21:00 Albuterol Sulfate (Ventolin Neb Soln) 2.5 mg PRN Q4HRS PRN NEB WHEEZING; Start 09/06/16 at 13:15 Lorazepam (Ativan) 0.5 mg PRN Q8HRS PRN PO ANXIETY / AGITATION; Start 09/06/16 at 13:00 Acetaminophen (Tylenol) 325 mg Q4HRS PRN PO MILD PAIN / TEMP; Start 09/06/16 at 13:00 Insulin Aspart (NovoLOG) 0-6 UNITS TIDWMEALS SQ ; Start 09/06/16 at 17:00 Info (Anti-Coagulation Monitoring By Pharmacy) 1 each PRN DAILY PRN MC SEE COMMENTS; Start 09/06/16 at 13:15 Vancomycin HCl 1 gm/Sodium Chloride 250 ml @ 250 mls/hr Q24H IV ; Start at 12:00 Vancomycin HCl 1 each 1X ONCE MC ; Start 09/08/16 at 11:30; Stop 09/08/16 at 11 :31 Active Scripts Active Furosemide 80 Mg Tablet 1 Tab PO BID 30 Days Amaryl (Glimepiride) 2 Mg Tablet 1 Mg PO DAILY 30 Days Klor-Con M20 (Potassium Chloride) 20 Meq Tab.er.prt 20 Meq PO TIDWMEALS 30 Days Sertraline Hcl 50 Mg Tablet 50 Mg PO DAILY 30 Days Spiriva (Tiotropium [place]) 18 Mcg Cap.w.dev 1 Cap IH DAILY Pradaxa (Dabigatran Etexilate Mesylate) 150 Mg Capsule 150 Mg PO BID Reported Lorazepam 0.5 Mg Tablet 0.5 Mg PO TID Protonix (Pantoprazole Sodium) 40 Mg Tablet.dr 1 Tab PO DAILYAC NITROGLYCERIN SubLingual (Nitroglycerin) 0.4 Mg Tab.subl 0.4 Mg SL PRN Q5MIN PRN Metoprolol Tartrate 25 Mg Tablet 1 Tab PO DAILY Lipitor (Atorvastatin Calcium) 20 Mg Tablet 20 Mg PO HS Albuterol Sulfate Neb Soln (Albuterol Sulfate) 2.5 Mg/3 Ml Vial.neb 1 Vial NEB PRN Q4HRS PRN Digoxin 125 Mcg Tablet 1 Tab PO DAILY Vitals/I & O Vital Sign - Last 24 Hours 09/06/16 09/06/16 09/06/16 09/06/16 11:19 11:49 12:19 12:49 Pulse 78 82 78 78 B/P (MAP) 142/64 (90) 164/88 (113) 144/72 (96) 140/69 (92) Pulse Ox 92 93 95 98 O2 Delivery BiPAP/CPAP BiPAP/CPAP BiPAP/CPAP BiPAP/CPAP 09/06/16 09/06/16 09/06/16 09/06/16 12:52 13:19 13:56 14:00 Temp 97.5 97.5 Pulse 74 71 Resp 21 B/P (MAP) 140/92 (108) 132/54 (80) Pulse Ox 97 94 94 99 O2 Delivery BiPAP/CPAP BiPAP/CPAP BiPAP/CPAP BiPAP/CPAP 09/06/16 09/06/16 09/06/16 09/06/16 14:29 15:00 15:20 16:00 Pulse 68 Resp 20 B/P (MAP) 121/65 (83) Pulse Ox 92 92 O2 Delivery Bi-pap BiPAP/CPAP BiPAP/CPAP Bi-pap 09/06/16 09/06/16 09/06/16 09/06/16 16:00 17:00 17:20 18:00 Temp 98.0 98.0 Pulse 72 68 74 Resp 22 21 22 B/P (MAP) 129/57 (81) 146/73 (97) 136/61 (86) Pulse Ox 91 93 92 95 O2 Delivery BiPAP/CPAP BiPAP/CPAP BiPAP/CPAP 09/06/16 09/06/16 09/06/16 09/06/16 19:00 19:50 20:00 20:00 Temp 98.5 98.5 Pulse 71 65 Resp 20 19 B/P (MAP) 104/63 (77) 92/53 (66) Pulse Ox 95 94 93 O2 Delivery BiPAP/CPAP BiPAP/CPAP Bi-pap BiPAP/CPAP 09/06/16 09/06/16 09/06/16 09/06/16 21:00 22:00 23:00 23:28 Pulse 68 68 67 Resp 19 22 20 B/P (MAP) 115/60 (78) 103/49 (67) 107/51 (69) Pulse Ox 94 99 99 98 O2 Delivery BiPAP/CPAP BiPAP/CPAP BiPAP/CPAP BiPAP/CPAP 09/06/16 09/07/16 09/07/16 09/07/16 23:56 00:00 01:00 01:45 Temp 98.6 98.6 Pulse 69 71 Resp 19 22 B/P (MAP) 96/46 (63) 99/53 (68) Pulse Ox 98 98 98 O2 Delivery Bi-pap BiPAP/CPAP BiPAP/CPAP BiPAP/CPAP 09/07/16 09/07/16 09/07/16 09/07/16 02:00 03:00 03:34 04:00 Temp 97.7 97.7 Pulse 74 77 71 Resp 21 26 20 B/P (MAP) 99/53 (68) 92/57 (69) 94/55 (68) Pulse Ox 99 97 98 97 O2 Delivery BiPAP/CPAP BiPAP/CPAP BiPAP/CPAP BiPAP/CPAP 09/07/16 09/07/16 09/07/16 09/07/16 04:00 05:00 06:00 07:00 Pulse 65 62 74 Resp 24 23 20 B/P (MAP) 106/48 (67) 96/52 (67) 98/52 (67) Pulse Ox 99 95 95 O2 Delivery Bi-pap BiPAP/CPAP BiPAP/CPAP BiPAP/CPAP 09/07/16 09/07/16 09/07/16 09/07/16 07:38 07:57 08:00 08:00 Temp 99.0 99.0 Pulse 70 Resp 21 B/P (MAP) 105/58 (74) Pulse Ox 95 97 96 O2 Delivery BiPAP/CPAP Nasal Cannula Bi-pap BiPAP/CPAP O2 Flow Rate 4.0 09/07/16 09/07/16 09/07/16 09/07/16 08:20 09:00 09:32 10:00 Pulse 72 74 66 Resp 20 20 B/P (MAP) 92/48 (63) 92/48 108/54 (72) Pulse Ox 97 96 O2 Delivery Nasal Cannula Nasal Cannula O2 Flow Rate 3.0 4.0 3.0 Intake and Output 09/06/16 09/06/16 09/07/16 15:00 23:00 07:00 Intake Total 550 ml 50 ml 150 ml Output Total 280 ml 520 ml Balance 550 ml -230 ml -370 ml MOR MALCOLM MD Sep 07, 2016 11:09
--- NOTE | 2016-09-07 11:13 | PDOC ---
PULMONARY PROGRESS NOTES Subjective on 02, feeling better, less sob, occ cough, l flank pain Vitals Vital Signs Date Time Temp Pulse Resp B/P (MAP) Pulse Ox O2 Delivery O2 Flow Rate FiO2 09/07/16 11:00 74 21 95/51 (66) 95 Nasal Cannula 3.0 09/07/16 08:00 99.0 99.0 ROS: No Nausea General: Alert, Oriented X4, No acute distress HEENT: Other (nc at perrl) Lungs: Crackles, Other Cardiovascular: S1, S2 Abdomen: Soft, Non-tender Neuro Exam: Alert Extremities: No Edema Skin: Warm Labs Laboratory Tests Test 09/06/16 10:25 09/06/16 11:00 09/06/16 12:00 09/06/16 13:32 White Blood Count 12.0 x10^3/uL (4.0-11.0) Red Blood Count 5.34 x10^6/uL (3.50-5.40) Hemoglobin 12.2 g/dL (12.0-15.5) Hematocrit 40.4 % (36.0-47.0) Mean Corpuscular Volume 76 fL (79-100) Mean Corpuscular Hemoglobin 23 pg (25-35) Mean Corpuscular Hemoglobin Concent 30 g/dL (31-37) Red Cell Distribution Width 21.4 % (11.5-14.5) Platelet Count 188 x10^3/uL (140-400) Neutrophils (%) (Auto) 88 % (31-73) Lymphocytes (%) (Auto) 7 % (24-48) Monocytes (%) (Auto) 5 % (0-9) Eosinophils (%) (Auto) 0 % (0-3) Basophils (%) (Auto) 1 % (0-3) Neutrophils # (Auto) 10.6 x10^3uL (1.8-7.7) Lymphocytes # (Auto) 0.8 x10^3/uL (1.0-4.8) Monocytes # (Auto) 0.6 x10^3/uL (0.0-1.1) Eosinophils # (Auto) 0.0 x10^3/uL (0.0-0.7) Basophils # (Auto) 0.1 x10^3/uL (0.0-0.2) Segmented Neutrophils % 86 % (35-66) Lymphocytes % 10 % (24-48) Monocytes % 3 % (0-10) Basophils % 1 % (0-3) Platelet Estimate Adequate (ADEQUATE) Anisocytosis Slight Prothrombin Time 17.3 SEC (11.7-14.0) Prothromb Time International Ratio 1.5 (0.8-1.1) O2 Saturation 45 % (92-99) Arterial Blood pH 7.37 (7.35-7.45) Arterial Blood pCO2 at Patient Temp 52 mmHg (35-46) Arterial Blood pO2 at Patient Temp < 42 mmHg (65-108) Arterial Blood HCO3 29 mmol/L (21-28) Arterial Blood Base Excess 3 mmol/L (-3-3) FiO2 50.0 Lactic Acid Level 2.8 mmol/L (0.4-2.0) 1.6 mmol/L (0.4-2.0) Sodium Level 145 mmol/L (136-145) 144 mmol/L (136-145) Potassium Level 4.1 mmol/L (3.5-5.1) 4.2 mmol/L (3.5-5.1) Chloride Level 104 mmol/L (98-107) 104 mmol/L (98-107) Carbon Dioxide Level 32 mmol/L (21-32) 34 mmol/L (21-32) Anion Gap 9 (6-14) 6 (6-14) Blood Urea Nitrogen 21 mg/dL (7-20) 18 mg/dL (7-20) Creatinine 1.1 mg/dL (0.6-1.0) 1.1 mg/dL (0.6-1.0) Estimated GFR (Cockcroft-Gault) 48.2 48.2 BUN/Creatinine Ratio 19 (6-20) Glucose Level 124 mg/dL (70-99) 139 mg/dL (70-99) Calcium Level 9.1 mg/dL (8.5-10.1) 9.0 mg/dL (8.5-10.1) Magnesium Level 2.5 mg/dL (1.8-2.4) Total Bilirubin 1.9 mg/dL (0.2-1.0) Aspartate Amino Transf (AST/SGOT) 23 U/L (15-37) Alanine Aminotransferase (ALT/SGPT) 14 U/L (14-59) Alkaline Phosphatase 135 U/L (46-116) Troponin I Quantitative 0.203 ng/mL (0.000-0.055) DD-Dms-W-Type Natriuretic Peptide 08389 pg/mL (0-449) Total Protein 7.4 g/dL (6.4-8.2) Albumin 3.9 g/dL (3.4-5.0) Albumin/Globulin Ratio 1.1 (1.0-1.7) Urine Collection Type U cath Urine Color Yellow Urine Clarity Clear Urine pH 7.0 Urine Specific [place] 1.010 Urine Protein Negative mg/dL (NEG-TRACE) Urine Glucose (UA) Negative mg/dL (NEG) Urine Ketones (Stick) Negative mg/dL (NEG) Urine Blood Negative (NEG) Urine Nitrite Negative (NEG) Urine Bilirubin Negative (NEG) Urine Urobilinogen Dipstick 0.2 mg/dL (0.2 mg/dL) Urine Leukocyte Esterase Negative (NEG) Urine RBC 0 /HPF (0-2) Urine WBC 0 /HPF (0-4) Urine Bacteria 0 /HPF (0-FEW) Urine Hyaline Casts Few /HPF Test 09/06/16 14:35 09/06/16 18:05 09/06/16 18:21 09/07/16 00:05 Nasal Screen MRSA (PCR) Positive (Negative) Troponin I Quantitative 0.192 ng/mL (0.000-0.055) 0.251 ng/mL (0.000-0.055) Glucose (Fingerstick) 128 mg/dL (70-99) Test 09/07/16 04:40 09/07/16 04:45 09/07/16 07:40 White Blood Count 9.3 x10^3/uL (4.0-11.0) Red Blood Count 4.87 x10^6/uL (3.50-5.40) Hemoglobin 11.0 g/dL (12.0-15.5) Hematocrit 37.2 % (36.0-47.0) Mean Corpuscular Volume 76 fL (79-100) Mean Corpuscular Hemoglobin 23 pg (25-35) Mean Corpuscular Hemoglobin Concent 29 g/dL (31-37) Red Cell Distribution Width 21.3 % (11.5-14.5) Platelet Count 157 x10^3/uL (140-400) Neutrophils (%) (Auto) 85 % (31-73) Lymphocytes (%) (Auto) 8 % (24-48) Monocytes (%) (Auto) 7 % (0-9) Eosinophils (%) (Auto) 0 % (0-3) Basophils (%) (Auto) 0 % (0-3) Neutrophils # (Auto) 7.9 x10^3uL (1.8-7.7) Lymphocytes # (Auto) 0.7 x10^3/uL (1.0-4.8) Monocytes # (Auto) 0.6 x10^3/uL (0.0-1.1) Eosinophils # (Auto) 0.0 x10^3/uL (0.0-0.7) Basophils # (Auto) 0.0 x10^3/uL (0.0-0.2) Sodium Level 148 mmol/L (136-145) Potassium Level 3.6 mmol/L (3.5-5.1) Chloride Level 107 mmol/L (98-107) Carbon Dioxide Level 34 mmol/L (21-32) Anion Gap 7 (6-14) Blood Urea Nitrogen 21 mg/dL (7-20) Creatinine 1.2 mg/dL (0.6-1.0) Estimated GFR (Cockcroft-Gault) 43.6 Glucose Level 90 mg/dL (70-99) Calcium Level 8.1 mg/dL (8.5-10.1) Magnesium Level 2.2 mg/dL (1.8-2.4) Digoxin Level 0.9 ng/mL (0.9-2.0) Digoxin Last Dose Date 09/03/16 Digoxin Last Dose Time 0900 O2 Saturation 94 % (92-99) Arterial Blood pH 7.41 (7.35-7.45) Arterial Blood pCO2 at Patient Temp 53 mmHg (35-46) Arterial Blood pO2 at Patient Temp 77 mmHg (65-108) Arterial Blood HCO3 33 mmol/L (21-28) Arterial Blood Base Excess 7 mmol/L (-3-3) FiO2 50 Laboratory Tests Test 09/06/16 12:00 09/06/16 13:32 09/06/16 14:35 09/06/16 18:05 Urine Collection Type U cath Urine Color Yellow Urine Clarity Clear Urine pH 7.0 Urine Specific [place] 1.010 Urine Protein Negative mg/dL (NEG-TRACE) Urine Glucose (UA) Negative mg/dL (NEG) Urine Ketones (Stick) Negative mg/dL (NEG) Urine Blood Negative (NEG) Urine Nitrite Negative (NEG) Urine Bilirubin Negative (NEG) Urine Urobilinogen Dipstick 0.2 mg/dL (0.2 mg/dL) Urine Leukocyte Esterase Negative (NEG) Urine RBC 0 /HPF (0-2) Urine WBC 0 /HPF (0-4) Urine Bacteria 0 /HPF (0-FEW) Urine Hyaline Casts Few /HPF Sodium Level 144 mmol/L (136-145) Potassium Level 4.2 mmol/L (3.5-5.1) Chloride Level 104 mmol/L (98-107) Carbon Dioxide Level 34 mmol/L (21-32) Anion Gap 6 (6-14) Blood Urea Nitrogen 18 mg/dL (7-20) Creatinine 1.1 mg/dL (0.6-1.0) Estimated GFR (Cockcroft-Gault) 48.2 Glucose Level 139 mg/dL (70-99) Lactic Acid Level 1.6 mmol/L (0.4-2.0) Calcium Level 9.0 mg/dL (8.5-10.1) Nasal Screen MRSA (PCR) Positive (Negative) Troponin I Quantitative 0.192 ng/mL (0.000-0.055) Test 09/06/16 18:21 09/07/16 00:05 09/07/16 04:40 09/07/16 04:45 Glucose (Fingerstick) 128 mg/dL (70-99) Troponin I Quantitative 0.251 ng/mL (0.000-0.055) White Blood Count 9.3 x10^3/uL (4.0-11.0) Red Blood Count 4.87 x10^6/uL (3.50-5.40) Hemoglobin 11.0 g/dL (12.0-15.5) Hematocrit 37.2 % (36.0-47.0) Mean Corpuscular Volume 76 fL (79-100) Mean Corpuscular Hemoglobin 23 pg (25-35) Mean Corpuscular Hemoglobin Concent 29 g/dL (31-37) Red Cell Distribution Width 21.3 % (11.5-14.5) Platelet Count 157 x10^3/uL (140-400) Neutrophils (%) (Auto) 85 % (31-73) Lymphocytes (%) (Auto) 8 % (24-48) Monocytes (%) (Auto) 7 % (0-9) Eosinophils (%) (Auto) 0 % (0-3) Basophils (%) (Auto) 0 % (0-3) Neutrophils # (Auto) 7.9 x10^3uL (1.8-7.7) Lymphocytes # (Auto) 0.7 x10^3/uL (1.0-4.8) Monocytes # (Auto) 0.6 x10^3/uL (0.0-1.1) Eosinophils # (Auto) 0.0 x10^3/uL (0.0-0.7) Basophils # (Auto) 0.0 x10^3/uL (0.0-0.2) Sodium Level 148 mmol/L (136-145) Potassium Level 3.6 mmol/L (3.5-5.1) Chloride Level 107 mmol/L (98-107) Carbon Dioxide Level 34 mmol/L (21-32) Anion Gap 7 (6-14) Blood Urea Nitrogen 21 mg/dL (7-20) Creatinine 1.2 mg/dL (0.6-1.0) Estimated GFR (Cockcroft-Gault) 43.6 Glucose Level 90 mg/dL (70-99) Calcium Level 8.1 mg/dL (8.5-10.1) Magnesium Level 2.2 mg/dL (1.8-2.4) Digoxin Level 0.9 ng/mL (0.9-2.0) Digoxin Last Dose Date 09/03/16 Digoxin Last Dose Time 0900 Test 09/07/16 07:40 O2 Saturation 94 % (92-99) Arterial Blood pH 7.41 (7.35-7.45) Arterial Blood pCO2 at Patient Temp 53 mmHg (35-46) Arterial Blood pO2 at Patient Temp 77 mmHg (65-108) Arterial Blood HCO3 33 mmol/L (21-28) Arterial Blood Base Excess 7 mmol/L (-3-3) FiO2 50 Medications Active Scripts Medications Dose Route/Sig Max Daily Dose Days Date Category Lorazepam 0.5 Mg Tablet 0.5 Mg PO TID 09/06/16 Reported Furosemide 80 Mg Tablet 1 Tab PO BID 30 08/18/16 Rx Amaryl (Glimepiride) 2 Mg Tablet 1 Mg PO DAILY 30 08/18/16 Rx Klor-Con M20 (Potassium Chloride) 20 Meq Tab.er.prt 20 Meq PO TIDWMEALS 30 07/18/16 Rx Sertraline Hcl 50 Mg Tablet 50 Mg PO DAILY 30 07/18/16 Rx Spiriva (Tiotropium [place]) 18 Mcg Cap.w.dev 1 Cap IH DAILY 09/27/15 Rx Pradaxa (Dabigatran Etexilate Mesylate) 150 Mg Capsule 150 Mg PO BID 09/27/15 Rx Protonix (Pantoprazole Sodium) 40 Mg Tablet.dr 1 Tab PO DAILYAC 04/18/15 Reported NITROGLYCERIN SubLingual (Nitroglycerin) 0.4 Mg Tab.subl 0.4 Mg SL PRN Q5MIN PRN 04/18/15 Reported Metoprolol Tartrate 25 Mg Tablet 1 Tab PO DAILY 04/18/15 Reported Lipitor (Atorvastatin Calcium) 20 Mg Tablet 20 Mg PO HS 04/18/15 Reported Albuterol Sulfate Neb Soln (Albuterol Sulfate) 2.5 Mg/3 Ml Vial.neb 1 Vial NEB PRN Q4HRS PRN 04/18/15 Reported Digoxin 125 Mcg Tablet 1 Tab PO DAILY 04/10/15 Reported Comments cxr reviewed, Focal opacity in the right mid to lower lung. Could be secondary to a region of airspace consolidation and pleural effusion. This appears redistributed when compared to prior with slightly better aeration at right lung base but more focal opacity in the right mid to upper lung. Cardiac silhouette is enlarged. Impression . IMPRESSION: 1. Acute on chronic respiratory failure. 2. Possible sepsis. 3. Leukocytosis. 4. Acute exacerbation of chronic obstructive pulmonary disease. 5. Acute on chronic diastolic heart failure. 6. Coronary artery disease. 7. Chronic atrial fibrillation. 8. Elevated troponin. 9. Hypertension. Plan . PLAN: 1. Continue empiric antibiotics. 2. BiPAP prn 3. Repeat arterial blood gas, reviewed. 4. Gentle diuresis. monitor k, cr 5. elevate hob 6. Nebulized treatments. 7. GI prophylaxis. 8. DVT prophylaxis. 9. cont abx discussed w rn, pt MIKAL BENITO MD Sep 07, 2016 11:13
[2016-09-07] MEDS ORDERED: VANCOMYCIN 1 GM in IV NORMAL SALINE 250ML 250 ML IV SCH (12:00)
--- NOTE | 2016-09-07 12:02 | PDOC ---
CARDIO Progress Notes Date and Time Date of Service 09/07/2016 Time of Evaluation 1140 Subjective Subjective: No Chest Pain, No shortness of breath, No Palpitations Vitals Vitals Vital Signs Date Time Temp Pulse Resp B/P (MAP) Pulse Ox O2 Delivery O2 Flow Rate FiO2 09/07/16 11:00 74 21 95/51 (66) 95 Nasal Cannula 3.0 09/07/16 08:00 99.0 99.0 Weight Weight [ ] Input and Output Intake and Output Intake and Output 09/07/16 06:59 Intake Total 750 ml Output Total 800 ml Balance -50 ml Intake Oral 100 ml IV Total 650 ml Output Urine Total 800 ml Laboratory Labs Laboratory Tests Test 09/06/16 12:00 09/06/16 13:32 09/06/16 14:35 09/06/16 18:05 Urine Collection Type U cath Urine Color Yellow Urine Clarity Clear Urine pH 7.0 Urine Specific [place] 1.010 Urine Protein Negative mg/dL (NEG-TRACE) Urine Glucose (UA) Negative mg/dL (NEG) Urine Ketones (Stick) Negative mg/dL (NEG) Urine Blood Negative (NEG) Urine Nitrite Negative (NEG) Urine Bilirubin Negative (NEG) Urine Urobilinogen Dipstick 0.2 mg/dL (0.2 mg/dL) Urine Leukocyte Esterase Negative (NEG) Urine RBC 0 /HPF (0-2) Urine WBC 0 /HPF (0-4) Urine Bacteria 0 /HPF (0-FEW) Urine Hyaline Casts Few /HPF Sodium Level 144 mmol/L (136-145) Potassium Level 4.2 mmol/L (3.5-5.1) Chloride Level 104 mmol/L (98-107) Carbon Dioxide Level 34 mmol/L (21-32) Anion Gap 6 (6-14) Blood Urea Nitrogen 18 mg/dL (7-20) Creatinine 1.1 mg/dL (0.6-1.0) Estimated GFR (Cockcroft-Gault) 48.2 Glucose Level 139 mg/dL (70-99) Lactic Acid Level 1.6 mmol/L (0.4-2.0) Calcium Level 9.0 mg/dL (8.5-10.1) Nasal Screen MRSA (PCR) Positive (Negative) Troponin I Quantitative 0.192 ng/mL (0.000-0.055) Test 09/06/16 18:21 09/07/16 00:05 09/07/16 04:40 09/07/16 04:45 Glucose (Fingerstick) 128 mg/dL (70-99) Troponin I Quantitative 0.251 ng/mL (0.000-0.055) White Blood Count 9.3 x10^3/uL (4.0-11.0) Red Blood Count 4.87 x10^6/uL (3.50-5.40) Hemoglobin 11.0 g/dL (12.0-15.5) Hematocrit 37.2 % (36.0-47.0) Mean Corpuscular Volume 76 fL (79-100) Mean Corpuscular Hemoglobin 23 pg (25-35) Mean Corpuscular Hemoglobin Concent 29 g/dL (31-37) Red Cell Distribution Width 21.3 % (11.5-14.5) Platelet Count 157 x10^3/uL (140-400) Neutrophils (%) (Auto) 85 % (31-73) Lymphocytes (%) (Auto) 8 % (24-48) Monocytes (%) (Auto) 7 % (0-9) Eosinophils (%) (Auto) 0 % (0-3) Basophils (%) (Auto) 0 % (0-3) Neutrophils # (Auto) 7.9 x10^3uL (1.8-7.7) Lymphocytes # (Auto) 0.7 x10^3/uL (1.0-4.8) Monocytes # (Auto) 0.6 x10^3/uL (0.0-1.1) Eosinophils # (Auto) 0.0 x10^3/uL (0.0-0.7) Basophils # (Auto) 0.0 x10^3/uL (0.0-0.2) Sodium Level 148 mmol/L (136-145) Potassium Level 3.6 mmol/L (3.5-5.1) Chloride Level 107 mmol/L (98-107) Carbon Dioxide Level 34 mmol/L (21-32) Anion Gap 7 (6-14) Blood Urea Nitrogen 21 mg/dL (7-20) Creatinine 1.2 mg/dL (0.6-1.0) Estimated GFR (Cockcroft-Gault) 43.6 Glucose Level 90 mg/dL (70-99) Calcium Level 8.1 mg/dL (8.5-10.1) Magnesium Level 2.2 mg/dL (1.8-2.4) Digoxin Level 0.9 ng/mL (0.9-2.0) Digoxin Last Dose Date 09/03/16 Digoxin Last Dose Time 0900 Test 09/07/16 07:40 O2 Saturation 94 % (92-99) Arterial Blood pH 7.41 (7.35-7.45) Arterial Blood pCO2 at Patient Temp 53 mmHg (35-46) Arterial Blood pO2 at Patient Temp 77 mmHg (65-108) Arterial Blood HCO3 33 mmol/L (21-28) Arterial Blood Base Excess 7 mmol/L (-3-3) FiO2 50 Physical Exam HEENT: Neck Supple W Full Motion Chest: Symmetric LUNGS: Other (diffuse wheeze) Heart: S1S2, irregularly irregular (AFIB) Abdomen: Soft N/T Extremities: No Edema, No Calf Tenderness Neurology: alert, oriented, follow commands Assessment Assessment 1. Acute on chronic respiratory failure 2. Acute on chronic diastolic CHF: improved 3. Secondary pulmonary HTN/Cor pulmonale: Known for O2 supplement noncompliance with continued tobaccoism 4. Elevated troponin: Peaked troponin 0.2. EKG AFIB without acute changes. Demand mediated 5. Chronic AFIB: remains controlled 6. HTN: hypotensive but asymptomatic. Volume depleted 7. DM2 8. CAD: 04/30/2011 last [facility] with patent RCA. stable. 9. Hypoxic encephalopathy: improved Recommendations 1. Continue home AFIB regimen with pradaxa. 2. Avoid significant preload reduction with significant pulmonary HTN. Hold further lasix today. Agree with lower dose po lasix. Likely start tomorrow. 3. Hold AM BP meds. Discussed ri RN. Reeval need this afternoon if remains low after pushing fluids then will provide small IV hydration. 3. Continue secondary prevention. TTE today 4. Off Bipap. Follow pulmonary recommendations 5. Will need closer supervision upon SAV VALDES APRN Sep 07, 2016 12:02
[2016-09-07] MEDS: VANCOMYCIN PER PHARMACY MC PRN (12:36)
--- NOTE | 2016-09-07 13:58 | CARD ---
APPROVED REPORT EXAM: Two-dimensional and M-mode echocardiogram with Doppler and color Doppler. Other Information Quality : Excellent INDICATION Congestive Heart Failure 2D DIMENSIONS RVDd4.5 (2.9-3.5cm)Left Atrium(2D)4.7 (1.6-4.0cm) IVSd1.1 (0.7-1.1cm)Aortic Root(2D)2.5 (2.0-3.7cm) LVDd3.4 (3.9-5.9cm)LVOT Diameter2.1 (1.8-2.4cm) PWd0.9 (0.7-1.1cm)LVDs2.9 (2.5-4.0cm) FS (%) 20.0 %SV16.0 ml LVEF(%)40.0 (>50%) Aortic Valve AoV Peak Foster.118.0cm/sAoV VTI18.1cm AO Peak GR.5.6mmHgLVOT VTI 16.44cm AO Mean GR.3mmHgAVA (VTI)3.10cm2 Mitral Valve MV E Dnnyciwk270.0cm/sMV DECEL [id number] MV A Kfardimo31.9cm/sE/A Ratio2.7 TDI Lateral E' P. V7.47cm/sMedial E' P. V4.76cm/s E/Lateral E'14.9E/Medial E'23.3 Tricuspid Valve TR P. [id number]/sRAP [id number] TR Peak Gr.[id number] LEFT VENTRICLE The left ventricle is normal size. There is mild to moderate concentric left ventricular hypertrophy. Left ventricle systolic function is low normal. The Ejection Fraction is estimated at 50%. RIGHT VENTRICLE The right ventricle is mildly dilated. Systolic function is mildly reduced. ATRIA The left atrium is mildly dilated. The right atrium is moderately dilated. The interatrial septum is intact with no evidence for an atrial septal defect or patent foramen ovale as noted on 2-D or Dopple r imaging. AORTIC VALVE The aortic valve is calcified but opens well. Doppler and Color Flow revealed no significant aortic r egurgitation. There is no significant aortic valvular stenosis. MITRAL VALVE The mitral valve is calcified but opens well. Mitral annular calcification is mild. There is no evide nce of mitral valve prolapse. There is no mitral valve stenosis. Doppler and Color-flow revealed trac e to mild mitral regurgitation. TRICUSPID VALVE The tricuspid valve is normal in structure and function. Doppler and Color Flow revealed moderate tri cuspid regurgitation. There is severe pulmonary hypertension. The PA pressure was estimated at 79 mmH g. There is no tricuspid valve stenosis. PULMONIC VALVE The pulmonary valve is normal in structure and function. Doppler and Color Flow revealed mild pulmoni c valvular regurgitation. There is no pulmonic valvular stenosis. GREAT VESSELS The aortic root is normal in size. The ascending aorta is normal in size. The IVC is dilated and rajendra apses <50% with inspiration. PERICARDIAL EFFUSION There is no evidence of significant pericardial effusion. Critical Notification Critical Value: No <Conclusion> The left ventricle is normal size. Left ventricle systolic function is low normal. The Ejection Fraction is estimated at 50%. There is mild to moderate concentric left ventricular hypertrophy. There is no significant aortic valvular stenosis. Doppler and Color Flow revealed no significant aortic regurgitation. Doppler and Color-flow revealed trace to mild mitral regurgitation. Doppler and Color Flow revealed moderate tricuspid regurgitation. There is severe pulmonary hypertension. The PA pressure was estimated at 79 mmHg.
[2016-09-07] MEDS ORDERED: FUROSEMIDE 80 MG TABLET. PO SCH ×2 (14:00→21:00)
[2016-09-07] MEDS: FUROSEMIDE 40 MG TABLET. PO SCH (15:53)
[2016-09-07] MEDS: ATORVASTATIN CALCIUM 20 MG TABLET PO SCH (20:36)
[2016-09-08] VITALS (13 sets, daily range): BP systolic 100–141; BP diastolic 45–76
[2016-09-08] MEDS: PIPERACILLIN/TAZOBACTAM 2.25 GM in IV NORMAL SALINE 50ML 50 ML IV SCH ×4 (05:30→23:48)
[2016-09-08 06:13] LABS: CALCIUM 8.1 mg/dL (8.5-10.1); GFR 53.8; POTASSIUM 3.9 mmol/L (3.5-5.1)
[2016-09-08] MEDS: INSULIN ASPART 300 UNITS/3 ML INSULN.PEN SQ SCH ×3 (07:38→17:00)
[2016-09-08 07:46] LABS: BASO % 0 % (0-3); EOS % 1 % (0-3); HEMATOCRIT 39.3 % (36.0-47.0); HEMOGLOBIN 11.1 g/dL (12.0-15.5); LYMPH # 1.2 x10^3/uL (1.0-4.8); LYMPH % 11 % (24-48); MEAN CORPUSCULAR HEMOGLOBIN 23 pg (25-35); MEAN CORPUSCULAR HGB CONC 28 g/dL (31-37); MEAN CORPUSCULAR VOLUME 80 fL (79-100); MONO % 6 % (0-9); NEUT % 82 % (31-73); PLATELET COUNT 130 x10^3/uL (140-400); RED BLOOD COUNT 4.93 x10^6/uL (3.50-5.40); WHITE BLOOD COUNT 10.9 x10^3/uL (4.0-11.0)
--- NOTE | 2016-09-08 08:29 | PDOC ---
CARDIOLOGY PROGRESS NOTE SUBJECTIVE: No acute events overnight. OBJECTIVE: Vital SIgns: Vital Signs Date Time Temp Pulse Resp B/P (MAP) Pulse Ox O2 Delivery O2 Flow Rate FiO2 09/08/16 07:00 77 22 100/45 (63) 94 Nasal Cannula 3.0 09/08/16 04:00 98.0 98.0 I & O Intake and Output 09/08/16 06:59 Intake Total 1250 ml Output Total 1242 ml Balance 8 ml Intake Oral 900 ml IV Total 350 ml Output Urine Total 1242 ml # Bowel Movements 1 Objective: GEN.: No apparent distress. Alert and oriented. HEENT: Head is normocephalic, atraumatic NECK: Supple. LUNGS: Bilateral wheezing. HEART: Irr irr. ABDOMEN: Soft, nontender. Positive bowel sounds. EXTREMITIES: Without any cyanosis. NEUROLOGIC: Normal speech, normal tone PSYCHIATRIC: Normal affect, normal mood. SKIN: No ulcerations CURRENT MEDICATIONS: Current Medications Medications (Trade) Dose Ordered Sig/Karyna Start Time Stop Time Status Last Admin Dose Admin Acetaminophen (Tylenol) 325 mg Q4HRS PRN 09/06/16 13:00 Albuterol Sulfate (Ventolin Neb Soln) 2.5 mg PRN Q4HRS PRN 09/06/16 13:15 Albuterol/ Ipratropium (Duoneb) 3 ml 1X ONCE 09/06/16 10:30 09/06/16 10:31 DC 09/06/16 10:56 3 ML Atorvastatin Calcium (Lipitor) 20 mg QHS 09/06/16 21:00 09/07/16 20:36 20 MG Dabigatran (Pradaxa) 75 mg BID 09/06/16 21:00 09/07/16 20:36 75 MG Digoxin (Lanoxin) 125 mcg DAILY 09/07/16 09:00 09/07/16 09:32 125 MCG Furosemide (Lasix) 40 mg [id number] 09/07/16 16:00 Info (Anti-Coagulation Monitoring By Pharmacy) 1 each PRN DAILY PRN 09/06/16 13:15 Insulin Aspart (NovoLOG) 0-6 UNITS TIDWMEALS 09/06/16 17:00 Levofloxacin/ Dextrose 150 ml @ 100 mls/hr Q48H 09/06/16 12:00 09/06/16 11:42 100 MLS/HR Levofloxacin/ Dextrose (Levaquin Per Pharmacy) 1 each PRN DAILY PRN 09/06/16 11:15 UNV Lorazepam (Ativan) 0.5 mg PRN Q8HRS PRN 09/06/16 13:00 Methylprednisolone Sodium Succinate (SOLU-Medrol 125MG VIAL) 125 mg 1X ONCE 09/06/16 11:15 09/06/16 11:16 DC 09/06/16 11:06 125 MG Metoprolol Succinate (Toprol Xl) 25 mg DAILY 09/07/16 09:00 Pantoprazole Sodium (Protonix) 40 mg DAILY 09/07/16 09:00 09/07/16 09:33 40 MG Piperacillin Sod/ Tazobactam Sod (Zosyn Per Pharmacy) 1 each PRN DAILY PRN 09/06/16 11:15 UNV Piperacillin Sod/ Tazobactam Sod 2.25 gm/Sodium Chloride 50 ml @ 100 mls/hr Q6HRS 09/06/16 12:00 09/08/16 05:30 100 MLS/HR Potassium Chloride (Klor-Con) 20 meq BIDWMEALS 09/07/16 17:00 09/07/16 17:49 20 MEQ Sertraline HCl (Zoloft) 50 mg DAILY 09/07/16 09:00 09/07/16 09:31 50 MG Sodium Chloride 500 ml @ 500 mls/hr 1X ONCE 09/06/16 11:30 09/06/16 12:29 DC 09/06/16 11:23 500 MLS/HR Vancomycin HCl 1 each 1X ONCE 09/08/16 11:30 09/08/16 11:31 Vancomycin HCl (Vanco Per Pharmacy) 1 each PRN DAILY PRN 09/06/16 11:15 09/07/16 12:36 1 EACH Vancomycin HCl 1.5 gm/Sodium Chloride 500 ml @ 250 mls/hr 1X ONCE 09/06/16 11:30 09/06/16 13:29 DC 09/06/16 12:13 250 MLS/HR Vancomycin HCl 1 gm/Sodium Chloride 250 ml @ 250 mls/hr Q24H 09/07/16 12:00 09/07/16 12:15 250 MLS/HR DIAGNOSTIC TESTING: Tele - no events. ASSESSMENT: 1. Acute on chronic respiratory failure 2. Permanent atrial fibrillation 3. Pulm HTN 4. CAD 5. HTN Problems: PLAN: 1. Continue present meds including lasix. 2. Continue dig 3. HR well controlled. 4. Poor prognosis, consider hospice, patient has no thoughts of quitting smoking etc. STELLA DEMPSEY MD Sep 08, 2016 08:29
[2016-09-08] MEDS: PANTOPRAZOLE 40 MG TABLET.DR. PO SCH (08:42)
[2016-09-08] MEDS: POTASSIUM CHLORIDE 20 MEQ TABLET.ER. PO SCH ×2 (08:42→16:58)
[2016-09-08] MEDS: METOPROLOL SUCC 24HR ER 25 MG TAB.ER.24H. PO SCH (08:43)
[2016-09-08] MEDS: DABIGATRAN ETEXILATE 75 MG CAPSULE. PO SCH (08:43)
[2016-09-08] MEDS: SERTRALINE 50 MG TABLET. PO SCH (08:43)
[2016-09-08] MEDS: DIGOXIN 125 MCG TABLET. PO SCH (08:43)
[2016-09-08] MEDS: FUROSEMIDE 40 MG TABLET. PO SCH ×2 (08:43→16:58)
[2016-09-08] MEDS: ANTI-COAG MONITOR BY PHARMACY. MC PRN (09:23)
--- NOTE | 2016-09-08 09:47 | PDOC ---
PROGRESS NOTES Subjective Subjective feels better. alert and eating breakfast. not short of breath. lab reviewed,. echocardiogram report reviewed showing LVEF 50-% and mild LVH and severe pulmonary hypertension. fbs 117. blood sugars low yesterday, will continue to hold glimepiride. Objective Objective Vital Signs Date Time Temp Pulse Resp B/P (MAP) Pulse Ox O2 Delivery O2 Flow Rate FiO2 09/08/16 08:43 87 122/65 09/08/16 08:00 98.6 22 96 Nasal Cannula 3.0 98.6 Intake and Output 09/08/16 06:59 Intake Total 1250 ml Output Total 1242 ml Balance 8 ml Intake Oral 900 ml IV Total 350 ml Output Urine Total 1242 ml # Bowel Movements 1 Physical Exam Abdomen: Soft Heart: Normal S1, Normal S2 Extremities: No edema General: Alert HEENT: Atraumatic Lungs: Other (decreasaed breath sounds right base . clear otherwise) Neuro: Normal speech Psych/Mental Status: Mood NL Skin: No rashes Assessment Assessment Problems Acute on chronic diastolic congestive heart failure. compensated 2. Acute on chronic hypoxic and hypercapnic respiratory failure. 3. Persistent atrial fibrillation. rate controlled 4. Metabolic encephalopathy. improved 5. loculated right pleural effusion. 6. Diabetes mellitus with nephropathy. 7. Chronic kidney disease stage 3. 8. Coronary artery disease. 9. Chronic obstructive pulmonary disease. 10. Gluteal wound. She has been going to the wound clinic for this. 11. Hyperlipidemia. 12. Hypertension. severe pulmonary hypertension Medical Problems: (1) Acute and chronic respiratory failure Status: Acute (2) CHF exacerbation Status: Acute (3) COPD exacerbation Status: Acute Plan Plan of Care increase pradaxa as est GFR 53 wound care lab tomorrow PT and OT continue lower dose furosemide hold glimepiride continue oxygen antibiotics per ID. receiving iv vancomycin and levaquin and zosyn Comment Review of Relevant I have reviewed the following items nikita (where applicable) has been applied. Labs Laboratory Tests Test 09/06/16 10:25 09/06/16 11:00 09/06/16 12:00 09/06/16 13:32 White Blood Count 12.0 x10^3/uL (4.0-11.0) Red Blood Count 5.34 x10^6/uL (3.50-5.40) Hemoglobin 12.2 g/dL (12.0-15.5) Hematocrit 40.4 % (36.0-47.0) Mean Corpuscular Volume 76 fL (79-100) Mean Corpuscular Hemoglobin 23 pg (25-35) Mean Corpuscular Hemoglobin Concent 30 g/dL (31-37) Red Cell Distribution Width 21.4 % (11.5-14.5) Platelet Count 188 x10^3/uL (140-400) Neutrophils (%) (Auto) 88 % (31-73) Lymphocytes (%) (Auto) 7 % (24-48) Monocytes (%) (Auto) 5 % (0-9) Eosinophils (%) (Auto) 0 % (0-3) Basophils (%) (Auto) 1 % (0-3) Neutrophils # (Auto) 10.6 x10^3uL (1.8-7.7) Lymphocytes # (Auto) 0.8 x10^3/uL (1.0-4.8) Monocytes # (Auto) 0.6 x10^3/uL (0.0-1.1) Eosinophils # (Auto) 0.0 x10^3/uL (0.0-0.7) Basophils # (Auto) 0.1 x10^3/uL (0.0-0.2) Segmented Neutrophils % 86 % (35-66) Lymphocytes % 10 % (24-48) Monocytes % 3 % (0-10) Basophils % 1 % (0-3) Platelet Estimate Adequate (ADEQUATE) Anisocytosis Slight Prothrombin Time 17.3 SEC (11.7-14.0) Prothromb Time International Ratio 1.5 (0.8-1.1) O2 Saturation 45 % (92-99) Arterial Blood pH 7.37 (7.35-7.45) Arterial Blood pCO2 at Patient Temp 52 mmHg (35-46) Arterial Blood pO2 at Patient Temp < 42 mmHg (65-108) Arterial Blood HCO3 29 mmol/L (21-28) Arterial Blood Base Excess 3 mmol/L (-3-3) FiO2 50.0 Lactic Acid Level 2.8 mmol/L (0.4-2.0) 1.6 mmol/L (0.4-2.0) Sodium Level 145 mmol/L (136-145) 144 mmol/L (136-145) Potassium Level 4.1 mmol/L (3.5-5.1) 4.2 mmol/L (3.5-5.1) Chloride Level 104 mmol/L (98-107) 104 mmol/L (98-107) Carbon Dioxide Level 32 mmol/L (21-32) 34 mmol/L (21-32) Anion Gap 9 (6-14) 6 (6-14) Blood Urea Nitrogen 21 mg/dL (7-20) 18 mg/dL (7-20) Creatinine 1.1 mg/dL (0.6-1.0) 1.1 mg/dL (0.6-1.0) Estimated GFR (Cockcroft-Gault) 48.2 48.2 BUN/Creatinine Ratio 19 (6-20) Glucose Level 124 mg/dL (70-99) 139 mg/dL (70-99) Calcium Level 9.1 mg/dL (8.5-10.1) 9.0 mg/dL (8.5-10.1) Magnesium Level 2.5 mg/dL (1.8-2.4) Total Bilirubin 1.9 mg/dL (0.2-1.0) Aspartate Amino Transf (AST/SGOT) 23 U/L (15-37) Alanine Aminotransferase (ALT/SGPT) 14 U/L (14-59) Alkaline Phosphatase 135 U/L (46-116) Troponin I Quantitative 0.203 ng/mL (0.000-0.055) [id number]-Type Natriuretic Peptide 12569 pg/mL (0-449) Total Protein 7.4 g/dL (6.4-8.2) Albumin 3.9 g/dL (3.4-5.0) Albumin/Globulin Ratio 1.1 (1.0-1.7) Urine Collection Type U cath Urine Color Yellow Urine Clarity Clear Urine pH 7.0 Urine Specific [employer] 1.010 Urine Protein Negative mg/dL (NEG-TRACE) Urine Glucose (UA) Negative mg/dL (NEG) Urine Ketones (Stick) Negative mg/dL (NEG) Urine Blood Negative (NEG) Urine Nitrite Negative (NEG) Urine Bilirubin Negative (NEG) Urine Urobilinogen Dipstick 0.2 mg/dL (0.2 mg/dL) Urine Leukocyte Esterase Negative (NEG) Urine RBC 0 /HPF (0-2) Urine WBC 0 /HPF (0-4) Urine Bacteria 0 /HPF (0-FEW) Urine Hyaline Casts Few /HPF Test 09/06/16 14:35 09/06/16 18:05 09/06/16 18:21 09/07/16 00:05 Nasal Screen MRSA (PCR) Positive (Negative) Troponin I Quantitative 0.192 ng/mL (0.000-0.055) 0.251 ng/mL (0.000-0.055) Glucose (Fingerstick) 128 mg/dL (70-99) Test 09/07/16 04:40 09/07/16 04:45 09/07/16 07:40 09/07/16 11:44 White Blood Count 9.3 x10^3/uL (4.0-11.0) Red Blood Count 4.87 x10^6/uL (3.50-5.40) Hemoglobin 11.0 g/dL (12.0-15.5) Hematocrit 37.2 % (36.0-47.0) Mean Corpuscular Volume 76 fL (79-100) Mean Corpuscular Hemoglobin 23 pg (25-35) Mean Corpuscular Hemoglobin Concent 29 g/dL (31-37) Red Cell Distribution Width 21.3 % (11.5-14.5) Platelet Count 157 x10^3/uL (140-400) Neutrophils (%) (Auto) 85 % (31-73) Lymphocytes (%) (Auto) 8 % (24-48) Monocytes (%) (Auto) 7 % (0-9) Eosinophils (%) (Auto) 0 % (0-3) Basophils (%) (Auto) 0 % (0-3) Neutrophils # (Auto) 7.9 x10^3uL (1.8-7.7) Lymphocytes # (Auto) 0.7 x10^3/uL (1.0-4.8) Monocytes # (Auto) 0.6 x10^3/uL (0.0-1.1) Eosinophils # (Auto) 0.0 x10^3/uL (0.0-0.7) Basophils # (Auto) 0.0 x10^3/uL (0.0-0.2) Sodium Level 148 mmol/L (136-145) Potassium Level 3.6 mmol/L (3.5-5.1) Chloride Level 107 mmol/L (98-107) Carbon Dioxide Level 34 mmol/L (21-32) Anion Gap 7 (6-14) Blood Urea Nitrogen 21 mg/dL (7-20) Creatinine 1.2 mg/dL (0.6-1.0) Estimated GFR (Cockcroft-Gault) 43.6 Glucose Level 90 mg/dL (70-99) Calcium Level 8.1 mg/dL (8.5-10.1) Magnesium Level 2.2 mg/dL (1.8-2.4) Digoxin Level 0.9 ng/mL (0.9-2.0) Digoxin Last Dose Date 09/03/16 Digoxin Last Dose Time 0900 O2 Saturation 94 % (92-99) Arterial Blood pH 7.41 (7.35-7.45) Arterial Blood pCO2 at Patient Temp 53 mmHg (35-46) Arterial Blood pO2 at Patient Temp 77 mmHg (65-108) Arterial Blood HCO3 33 mmol/L (21-28) Arterial Blood Base Excess 7 mmol/L (-3-3) FiO2 50 Glucose (Fingerstick) 84 mg/dL (70-99) Test 09/07/16 17:47 09/08/16 04:30 09/08/16 07:37 Glucose (Fingerstick) 76 mg/dL (70-99) 117 mg/dL (70-99) White Blood Count 10.9 x10^3/uL (4.0-11.0) Red Blood Count 4.93 x10^6/uL (3.50-5.40) Hemoglobin 11.1 g/dL (12.0-15.5) Hematocrit 39.3 % (36.0-47.0) Mean Corpuscular Volume 80 fL (79-100) Mean Corpuscular Hemoglobin 23 pg (25-35) Mean Corpuscular Hemoglobin Concent 28 g/dL (31-37) Red Cell Distribution Width 22.0 % (11.5-14.5) Platelet Count 130 x10^3/uL (140-400) Neutrophils (%) (Auto) 82 % (31-73) Lymphocytes (%) (Auto) 11 % (24-48) Monocytes (%) (Auto) 6 % (0-9) Eosinophils (%) (Auto) 1 % (0-3) Basophils (%) (Auto) 0 % (0-3) Neutrophils # (Auto) 8.9 x10^3uL (1.8-7.7) Lymphocytes # (Auto) 1.2 x10^3/uL (1.0-4.8) Monocytes # (Auto) 0.6 x10^3/uL (0.0-1.1) Eosinophils # (Auto) 0.1 x10^3/uL (0.0-0.7) Basophils # (Auto) 0.0 x10^3/uL (0.0-0.2) Sodium Level 144 mmol/L (136-145) Potassium Level 3.9 mmol/L (3.5-5.1) Chloride Level 107 mmol/L (98-107) Carbon Dioxide Level 23 mmol/L (21-32) Anion Gap 14 (6-14) Blood Urea Nitrogen 22 mg/dL (7-20) Creatinine 1.0 mg/dL (0.6-1.0) Estimated GFR (Cockcroft-Gault) 53.8 Glucose Level 64 mg/dL (70-99) Calcium Level 8.1 mg/dL (8.5-10.1) Laboratory Tests Test 09/07/16 11:44 09/07/16 17:47 09/08/16 04:30 09/08/16 07:37 Glucose (Fingerstick) 84 mg/dL (70-99) 76 mg/dL (70-99) 117 mg/dL (70-99) White Blood Count 10.9 x10^3/uL (4.0-11.0) Red Blood Count 4.93 x10^6/uL (3.50-5.40) Hemoglobin 11.1 g/dL (12.0-15.5) Hematocrit 39.3 % (36.0-47.0) Mean Corpuscular Volume 80 fL (79-100) Mean Corpuscular Hemoglobin 23 pg (25-35) Mean Corpuscular Hemoglobin Concent 28 g/dL (31-37) Red Cell Distribution Width 22.0 % (11.5-14.5) Platelet Count 130 x10^3/uL (140-400) Neutrophils (%) (Auto) 82 % (31-73) Lymphocytes (%) (Auto) 11 % (24-48) Monocytes (%) (Auto) 6 % (0-9) Eosinophils (%) (Auto) 1 % (0-3) Basophils (%) (Auto) 0 % (0-3) Neutrophils # (Auto) 8.9 x10^3uL (1.8-7.7) Lymphocytes # (Auto) 1.2 x10^3/uL (1.0-4.8) Monocytes # (Auto) 0.6 x10^3/uL (0.0-1.1) Eosinophils # (Auto) 0.1 x10^3/uL (0.0-0.7) Basophils # (Auto) 0.0 x10^3/uL (0.0-0.2) Sodium Level 144 mmol/L (136-145) Potassium Level 3.9 mmol/L (3.5-5.1) Chloride Level 107 mmol/L (98-107) Carbon Dioxide Level 23 mmol/L (21-32) Anion Gap 14 (6-14) Blood Urea Nitrogen 22 mg/dL (7-20) Creatinine 1.0 mg/dL (0.6-1.0) Estimated GFR (Cockcroft-Gault) 53.8 Glucose Level 64 mg/dL (70-99) Calcium Level 8.1 mg/dL (8.5-10.1) Medications Current Medications Albuterol/ Ipratropium (Duoneb) 3 ml 1X ONCE NEB Last administered on 10:56; Start 09/06/16 at 10:30; Stop 09/06/16 at 10:31; Status DC Albuterol Sulfate (Ventolin Neb Soln) 7.5 mg 1X ONCE CONT NEB Last administered on 09/06/16 10:55; Start 09/06/16 at 10:45; Stop 09/06/16 at 10:46 ; Status DC Methylprednisolone Sodium Succinate (SOLU-Medrol 125MG VIAL) 125 mg 1X ONCE IV Last administered on 09/06/16 11:06; Start 09/06/16 at 11:15; Stop 09/06/16 at 11:16; Status DC Sodium Chloride 1,000 ml @ 1,000 mls/hr 1X ONCE IV ; Start 09/06/16 at 11:00; Stop 09/06/16 at 11:00; Status DC Vancomycin HCl (Vanco Per Pharmacy) 1 each PRN DAILY PRN MC SEE COMMENTS Last administered on 09/07/16 12:36; Start 09/06/16 at 11:15 Levofloxacin/ Dextrose (Levaquin Per Pharmacy) 1 each PRN DAILY PRN MC SEE COMMENTS; Start 09/06/16 at 11:15; Status UNV Piperacillin Sod/ Tazobactam Sod (Zosyn Per Pharmacy) 1 each PRN DAILY PRN MC SEE COMMENTS; Start 09/06/16 at 11:15; Status UNV Sodium Chloride 500 ml @ 500 mls/hr 1X ONCE IV Last administered on 11:23; Start 09/06/16 at 11:30; Stop 09/06/16 at 12:29; Status DC Vancomycin HCl 1.5 gm/Sodium Chloride 500 ml @ 250 mls/hr 1X ONCE IV Last administered on 09/06/16 12:13; Start 09/06/16 at 11:30; Stop 09/06/16 at 13:29 ; Status DC Levofloxacin/ Dextrose 150 ml @ 100 mls/hr Q48H IV Last administered on 11:42; Start 09/06/16 at 12:00 Piperacillin Sod/ Tazobactam Sod 2.25 gm/Sodium Chloride 50 ml @ 100 mls/hr Q6HRS IV Last administered on 09/08/16 05:30; Start 09/06/16 at 12:00 Furosemide (Lasix) 40 mg 1X ONCE IVP Last administered on 09/06/16 11:57; Start 09/06/16 at 12:00; Stop 09/06/16 at 12:01; Status DC Pantoprazole Sodium (Protonix) 40 mg DAILY PO Last administered on 09/08/16 08 :42; Start 09/07/16 at 09:00 Metoprolol Succinate (Toprol Xl) 25 mg DAILY PO Last administered on 09/08/16 08:43; Start 09/07/16 at 09:00 Digoxin (Lanoxin) 125 mcg DAILY PO Last administered on 09/08/16 08:43; Start 09/07/16 at 09:00 Furosemide (Lasix) 40 mg Q12HR IVP Last administered on 09/07/16 09:32; Start 09/06/16 at 21:00; Stop 09/07/16 at 11:01; Status DC Potassium Chloride (Klor-Con) 20 meq TIDWMEALS PO Last administered on 09:31; Start 09/06/16 at 14:00; Stop 09/07/16 at 11:08; Status DC Sertraline HCl (Zoloft) 50 mg DAILY PO Last administered on 09/08/16 08:43; Start 09/07/16 at 09:00 Atorvastatin Calcium (Lipitor) 20 mg QHS PO Last administered on 09/07/16 20: 36; Start 09/06/16 at 21:00 Dabigatran (Pradaxa) 75 mg BID PO Last administered on 09/08/16 08:43; Start 09/06/16 at 21:00 Albuterol Sulfate (Ventolin Neb Soln) 2.5 mg PRN Q4HRS PRN NEB WHEEZING; Start 09/06/16 at 13:15 Lorazepam (Ativan) 0.5 mg PRN Q8HRS PRN PO ANXIETY / AGITATION; Start 09/06/16 at 13:00 Acetaminophen (Tylenol) 325 mg Q4HRS PRN PO MILD PAIN / TEMP; Start 09/06/16 at 13:00 Insulin Aspart (NovoLOG) 0-6 UNITS TIDWMEALS SQ ; Start 09/06/16 at 17:00 Info (Anti-Coagulation Monitoring By Pharmacy) 1 each PRN DAILY PRN MC SEE COMMENTS Last administered on 09/08/16 09:23; Start 09/06/16 at 13:15 Vancomycin HCl 1 gm/Sodium Chloride 250 ml @ 250 mls/hr Q24H IV Last administered on 09/07/16 12:15; Start 09/07/16 at 12:00 Vancomycin HCl 1 each 1X ONCE MC ; Start 09/08/16 at 11:30; Stop 09/08/16 at 11 :31 Furosemide (Lasix) 40 mg BID PO ; Start 09/07/16 at 21:00; Stop 09/07/16 at 21: 00; Status DC Potassium Chloride (Klor-Con) 20 meq BIDWMEALS PO Last administered on 08:42; Start 09/07/16 at 17:00 Furosemide (Lasix) 40 mg [id number] PO ; Start 09/07/16 at 14:00; Stop 09/07/16 at 14 :00; Status DC Furosemide (Lasix) 40 mg [id number] PO Last administered on 09/08/16t 08:43; Start 09/07/16 at 16:00 Active Scripts Active Furosemide 80 Mg Tablet 1 Tab PO BID 30 Days Amaryl (Glimepiride) 2 Mg Tablet 1 Mg PO DAILY 30 Days Klor-Con M20 (Potassium Chloride) 20 Meq Tab.er.prt 20 Meq PO TIDWMEALS 30 Days Sertraline Hcl 50 Mg Tablet 50 Mg PO DAILY 30 Days Spiriva (Tiotropium [place]) 18 Mcg Cap.w.dev 1 Cap IH DAILY Pradaxa (Dabigatran Etexilate Mesylate) 150 Mg Capsule 150 Mg PO BID Reported Lorazepam 0.5 Mg Tablet 0.5 Mg PO TID Protonix (Pantoprazole Sodium) 40 Mg Tablet.dr 1 Tab PO DAILYAC NITROGLYCERIN SubLingual (Nitroglycerin) 0.4 Mg Tab.subl 0.4 Mg SL PRN Q5MIN PRN Metoprolol Tartrate 25 Mg Tablet 1 Tab PO DAILY Lipitor (Atorvastatin Calcium) 20 Mg Tablet 20 Mg PO HS Albuterol Sulfate Neb Soln (Albuterol Sulfate) 2.5 Mg/3 Ml Vial.neb 1 Vial NEB PRN Q4HRS PRN Digoxin 125 Mcg Tablet 1 Tab PO DAILY Vitals/I & O Vital Sign - Last 24 Hours 09/07/16 09/07/16 09/07/16 09/07/16 10:00 11:00 12:00 12:00 Temp 99.0 99.0 Pulse 66 74 77 Resp 20 21 24 B/P (MAP) 108/54 (72) 95/51 (66) 81/54 (63) Pulse Ox 96 95 95 O2 Delivery Nasal Cannula Nasal Cannula Bi-pap Nasal Cannula O2 Flow Rate 3.0 3.0 3.0 09/07/16 09/07/16 09/07/16 09/07/16 13:00 14:00 15:00 16:00 Pulse 70 82 75 Resp 23 20 20 B/P (MAP) 94/57 (69) 103/56 (72) 86/50 (62) Pulse Ox 94 93 96 O2 Delivery Nasal Cannula Nasal Cannula Nasal Cannula Nasal Cannula O2 Flow Rate 3.0 3.0 3.0 3.0 09/07/16 09/07/16 09/07/16 7/21/17 16:00 17:00 18:00 19:00 Temp 99.1 99.1 Pulse 71 71 80 70 Resp 28 30 B/P (MAP) 110/57 (74) 109/58 (75) 121/57 (78) 94/54 (67) Pulse Ox 97 95 94 95 O2 Delivery Nasal Cannula Nasal Cannula Nasal Cannula Nasal Cannula O2 Flow Rate 3.0 3.0 3.0 3.0 09/07/16 09/07/16 09/07/16 09/07/16 19:49 20:00 21:00 22:00 Temp 99.0 99.0 Pulse 71 80 79 Resp 26 B/P (MAP) 86/60 (69) 99/56 (70) 109/59 (76) Pulse Ox 95 94 91 O2 Delivery Nasal Cannula Nasal Cannula Nasal Cannula Nasal Cannula O2 Flow Rate 3.0 3.0 3.0 3.0 09/07/16 09/07/16 09/08/16 09/08/16 23:00 23:53 00:00 01:00 Temp 98.7 98.7 Pulse 70 72 74 Resp B/P (MAP) 109/56 (73) 104/58 (73) 113/56 (75) Pulse Ox 96 97 93 91 O2 Delivery BiPAP/CPAP BiPAP/CPAP BiPAP/CPAP BiPAP/CPAP 09/08/16 09/08/16 09/08/16 09/08/16 02:00 02:10 03:00 04:00 Temp 98.0 98.0 Pulse 78 70 69 Resp B/P (MAP) 108/65 (79) 126/68 (87) 123/69 (87) Pulse Ox 92 97 94 97 O2 Delivery BiPAP/CPAP BiPAP/CPAP BiPAP/CPAP Nasal Cannula O2 Flow Rate 3.0 09/08/16 09/08/16 09/08/16 09/08/16 05:00 06:00 07:00 08:00 Pulse 74 71 77 Resp 22 B/P (MAP) 118/66 (83) 127/64 (85) 100/45 (63) Pulse Ox 98 98 94 O2 Delivery Nasal Cannula Nasal Cannula Nasal Cannula Nasal Cannula O2 Flow Rate 3.0 3.0 3.0 3.0 7/09/08/16 09/08/16 09/08/16 08:00 08:00 08:43 08:43 Temp 98.6 98.6 Pulse 85 87 87 Resp 22 B/P (MAP) 122/65 (84) 122/65 122/65 Pulse Ox 96 O2 Delivery Nasal Cannula O2 Flow Rate 3.0 3.0 Intake and Output 09/07/16 09/07/16 09/08/16 14:59 22:59 06:59 Intake Total 750 ml 450 ml 50 ml Output Total 565 ml 375 ml 302 ml Balance 185 ml 75 ml -252 ml MOR MALCOLM MD Sep 08, 2016 09:46
[2016-09-08] MEDS: LORazepam 0.5 MG TABLET PO PRN (09:59)
--- NOTE | 2016-09-08 10:45 | PDOC ---
PULMONARY PROGRESS NOTES Subjective on 02, feeling better, less sob, occ cough, has back pain Vitals Vital Signs Date Time Temp Pulse Resp B/P (MAP) Pulse Ox O2 Delivery O2 Flow Rate FiO2 09/08/16 08:43 87 122/65 09/08/16 08:00 98.6 22 96 Nasal Cannula 3.0 98.6 ROS: No Nausea General: Alert, Oriented X4, No acute distress HEENT: Other (nc at perrl) Lungs: Crackles, Other Cardiovascular: S1, S2 Abdomen: Soft, Non-tender Neuro Exam: Alert Extremities: No Edema Skin: Warm Labs Laboratory Tests Test 09/06/16 11:00 09/06/16 12:00 09/06/16 13:32 09/06/16 14:35 Sodium Level 145 mmol/L (136-145) 144 mmol/L (136-145) Potassium Level 4.1 mmol/L (3.5-5.1) 4.2 mmol/L (3.5-5.1) Chloride Level 104 mmol/L (98-107) 104 mmol/L (98-107) Carbon Dioxide Level 32 mmol/L (21-32) 34 mmol/L (21-32) Anion Gap 9 (6-14) 6 (6-14) Blood Urea Nitrogen 21 mg/dL (7-20) 18 mg/dL (7-20) Creatinine 1.1 mg/dL (0.6-1.0) 1.1 mg/dL (0.6-1.0) Estimated GFR (Cockcroft-Gault) 48.2 48.2 BUN/Creatinine Ratio 19 (6-20) Glucose Level 124 mg/dL (70-99) 139 mg/dL (70-99) Calcium Level 9.1 mg/dL (8.5-10.1) 9.0 mg/dL (8.5-10.1) Magnesium Level 2.5 mg/dL (1.8-2.4) Total Bilirubin 1.9 mg/dL (0.2-1.0) Aspartate Amino Transf (AST/SGOT) 23 U/L (15-37) Alanine Aminotransferase (ALT/SGPT) 14 U/L (14-59) Alkaline Phosphatase 135 U/L (46-116) Troponin I Quantitative 0.203 ng/mL (0.000-0.055) EC-Zph-V-Type Natriuretic Peptide 23206 pg/mL (0-449) Total Protein 7.4 g/dL (6.4-8.2) Albumin 3.9 g/dL (3.4-5.0) Albumin/Globulin Ratio 1.1 (1.0-1.7) Urine Collection Type U cath Urine Color Yellow Urine Clarity Clear Urine pH 7.0 Urine Specific [place] 1.010 Urine Protein Negative mg/dL (NEG-TRACE) Urine Glucose (UA) Negative mg/dL (NEG) Urine Ketones (Stick) Negative mg/dL (NEG) Urine Blood Negative (NEG) Urine Nitrite Negative (NEG) Urine Bilirubin Negative (NEG) Urine Urobilinogen Dipstick 0.2 mg/dL (0.2 mg/dL) Urine Leukocyte Esterase Negative (NEG) Urine RBC 0 /HPF (0-2) Urine WBC 0 /HPF (0-4) Urine Bacteria 0 /HPF (0-FEW) Urine Hyaline Casts Few /HPF Lactic Acid Level 1.6 mmol/L (0.4-2.0) Nasal Screen MRSA (PCR) Positive (Negative) Test 09/06/16 18:05 09/06/16 18:21 09/07/16 00:05 09/07/16 04:40 Troponin I Quantitative 0.192 ng/mL (0.000-0.055) 0.251 ng/mL (0.000-0.055) Glucose (Fingerstick) 128 mg/dL (70-99) White Blood Count 9.3 x10^3/uL (4.0-11.0) Red Blood Count 4.87 x10^6/uL (3.50-5.40) Hemoglobin 11.0 g/dL (12.0-15.5) Hematocrit 37.2 % (36.0-47.0) Mean Corpuscular Volume 76 fL (79-100) Mean Corpuscular Hemoglobin 23 pg (25-35) Mean Corpuscular Hemoglobin Concent 29 g/dL (31-37) Red Cell Distribution Width 21.3 % (11.5-14.5) Platelet Count 157 x10^3/uL (140-400) Neutrophils (%) (Auto) 85 % (31-73) Lymphocytes (%) (Auto) 8 % (24-48) Monocytes (%) (Auto) 7 % (0-9) Eosinophils (%) (Auto) 0 % (0-3) Basophils (%) (Auto) 0 % (0-3) Neutrophils # (Auto) 7.9 x10^3uL (1.8-7.7) Lymphocytes # (Auto) 0.7 x10^3/uL (1.0-4.8) Monocytes # (Auto) 0.6 x10^3/uL (0.0-1.1) Eosinophils # (Auto) 0.0 x10^3/uL (0.0-0.7) Basophils # (Auto) 0.0 x10^3/uL (0.0-0.2) Sodium Level 148 mmol/L (136-145) Potassium Level 3.6 mmol/L (3.5-5.1) Chloride Level 107 mmol/L (98-107) Carbon Dioxide Level 34 mmol/L (21-32) Anion Gap 7 (6-14) Blood Urea Nitrogen 21 mg/dL (7-20) Creatinine 1.2 mg/dL (0.6-1.0) Estimated GFR (Cockcroft-Gault) 43.6 Glucose Level 90 mg/dL (70-99) Calcium Level 8.1 mg/dL (8.5-10.1) Test 09/07/16 04:45 09/07/16 07:40 09/07/16 11:44 09/07/16 17:47 Magnesium Level 2.2 mg/dL (1.8-2.4) Digoxin Level 0.9 ng/mL (0.9-2.0) Digoxin Last Dose Date 09/03/16 Digoxin Last Dose Time 0900 O2 Saturation 94 % (92-99) Arterial Blood pH 7.41 (7.35-7.45) Arterial Blood pCO2 at Patient Temp 53 mmHg (35-46) Arterial Blood pO2 at Patient Temp 77 mmHg (65-108) Arterial Blood HCO3 33 mmol/L (21-28) Arterial Blood Base Excess 7 mmol/L (-3-3) FiO2 50 Glucose (Fingerstick) 84 mg/dL (70-99) 76 mg/dL (70-99) Test 09/08/16 04:30 09/08/16 07:37 White Blood Count 10.9 x10^3/uL (4.0-11.0) Red Blood Count 4.93 x10^6/uL (3.50-5.40) Hemoglobin 11.1 g/dL (12.0-15.5) Hematocrit 39.3 % (36.0-47.0) Mean Corpuscular Volume 80 fL (79-100) Mean Corpuscular Hemoglobin 23 pg (25-35) Mean Corpuscular Hemoglobin Concent 28 g/dL (31-37) Red Cell Distribution Width 22.0 % (11.5-14.5) Platelet Count 130 x10^3/uL (140-400) Neutrophils (%) (Auto) 82 % (31-73) Lymphocytes (%) (Auto) 11 % (24-48) Monocytes (%) (Auto) 6 % (0-9) Eosinophils (%) (Auto) 1 % (0-3) Basophils (%) (Auto) 0 % (0-3) Neutrophils # (Auto) 8.9 x10^3uL (1.8-7.7) Lymphocytes # (Auto) 1.2 x10^3/uL (1.0-4.8) Monocytes # (Auto) 0.6 x10^3/uL (0.0-1.1) Eosinophils # (Auto) 0.1 x10^3/uL (0.0-0.7) Basophils # (Auto) 0.0 x10^3/uL (0.0-0.2) Sodium Level 144 mmol/L (136-145) Potassium Level 3.9 mmol/L (3.5-5.1) Chloride Level 107 mmol/L (98-107) Carbon Dioxide Level 23 mmol/L (21-32) Anion Gap 14 (6-14) Blood Urea Nitrogen 22 mg/dL (7-20) Creatinine 1.0 mg/dL (0.6-1.0) Estimated GFR (Cockcroft-Gault) 53.8 Glucose Level 64 mg/dL (70-99) Calcium Level 8.1 mg/dL (8.5-10.1) Glucose (Fingerstick) 117 mg/dL (70-99) Laboratory Tests Test 09/07/16 11:44 09/07/16 17:47 09/08/16 04:30 09/08/16 07:37 Glucose (Fingerstick) 84 mg/dL (70-99) 76 mg/dL (70-99) 117 mg/dL (70-99) White Blood Count 10.9 x10^3/uL (4.0-11.0) Red Blood Count 4.93 x10^6/uL (3.50-5.40) Hemoglobin 11.1 g/dL (12.0-15.5) Hematocrit 39.3 % (36.0-47.0) Mean Corpuscular Volume 80 fL (79-100) Mean Corpuscular Hemoglobin 23 pg (25-35) Mean Corpuscular Hemoglobin Concent 28 g/dL (31-37) Red Cell Distribution Width 22.0 % (11.5-14.5) Platelet Count 130 x10^3/uL (140-400) Neutrophils (%) (Auto) 82 % (31-73) Lymphocytes (%) (Auto) 11 % (24-48) Monocytes (%) (Auto) 6 % (0-9) Eosinophils (%) (Auto) 1 % (0-3) Basophils (%) (Auto) 0 % (0-3) Neutrophils # (Auto) 8.9 x10^3uL (1.8-7.7) Lymphocytes # (Auto) 1.2 x10^3/uL (1.0-4.8) Monocytes # (Auto) 0.6 x10^3/uL (0.0-1.1) Eosinophils # (Auto) 0.1 x10^3/uL (0.0-0.7) Basophils # (Auto) 0.0 x10^3/uL (0.0-0.2) Sodium Level 144 mmol/L (136-145) Potassium Level 3.9 mmol/L (3.5-5.1) Chloride Level 107 mmol/L (98-107) Carbon Dioxide Level 23 mmol/L (21-32) Anion Gap 14 (6-14) Blood Urea Nitrogen 22 mg/dL (7-20) Creatinine 1.0 mg/dL (0.6-1.0) Estimated GFR (Cockcroft-Gault) 53.8 Glucose Level 64 mg/dL (70-99) Calcium Level 8.1 mg/dL (8.5-10.1) Medications Active Scripts Medications Dose Route/Sig Max Daily Dose Days Date Category Lorazepam 0.5 Mg Tablet 0.5 Mg PO TID 09/06/16 Reported Furosemide 80 Mg Tablet 1 Tab PO BID 30 08/18/16 Rx Amaryl (Glimepiride) 2 Mg Tablet 1 Mg PO DAILY 30 08/18/16 Rx Klor-Con M20 (Potassium Chloride) 20 Meq Tab.er.prt 20 Meq PO TIDWMEALS 30 07/18/16 Rx Sertraline Hcl 50 Mg Tablet 50 Mg PO DAILY 30 07/18/16 Rx Spiriva (Tiotropium [place]) 18 Mcg Cap.w.dev 1 Cap IH DAILY 09/27/15 Rx Pradaxa (Dabigatran Etexilate Mesylate) 150 Mg Capsule 150 Mg PO BID 09/27/15 Rx Protonix (Pantoprazole Sodium) 40 Mg Tablet.dr 1 Tab PO DAILYAC 04/18/15 Reported NITROGLYCERIN SubLingual (Nitroglycerin) 0.4 Mg Tab.subl 0.4 Mg SL PRN Q5MIN PRN 04/18/15 Reported Metoprolol Tartrate 25 Mg Tablet 1 Tab PO DAILY 04/18/15 Reported Lipitor (Atorvastatin Calcium) 20 Mg Tablet 20 Mg PO HS 04/18/15 Reported Albuterol Sulfate Neb Soln (Albuterol Sulfate) 2.5 Mg/3 Ml Vial.neb 1 Vial NEB PRN Q4HRS PRN 04/18/15 Reported Digoxin 125 Mcg Tablet 1 Tab PO DAILY 04/10/15 Reported Comments cxr reviewed, Focal opacity in the right mid to lower lung. Could be secondary to a region of airspace consolidation and pleural effusion. This appears redistributed when compared to prior with slightly better aeration at right lung base but more focal opacity in the right mid to upper lung. Cardiac silhouette is enlarged. Impression . IMPRESSION: 1. Acute on chronic respiratory failure. 2. Possible sepsis. 3. Leukocytosis. 4. Acute exacerbation of chronic obstructive pulmonary disease. 5. Acute on chronic diastolic heart failure. 6. Coronary artery disease. 7. Chronic atrial fibrillation. 8. Elevated troponin. 9. Hypertension. Plan . PLAN: 1. Continue empiric antibiotics. 2. BiPAP prn 3. Repeat arterial blood gas, reviewed. 4. Gentle diuresis. monitor k, cr 5. elevate hob 6. Nebulized treatments. 7. GI prophylaxis. 8. DVT prophylaxis. 9. cont abx 10. am cxr discussed w rn, pt and her daughter MIKAL BENITO MD Sep 08, 2016 10:45
--- NOTE | 2016-09-08 11:15 | PDOC ---
Infectious Disease Note Subjective Subjective Feeling ok Little diarrhea, denies cramping, bloating or N/V. 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, ansers questions appropriately SKIN: No rash IV: ok Labs Lab Laboratory Tests Test 09/07/16 11:44 09/07/16 17:47 09/08/16 04:30 09/08/16 07:37 Glucose (Fingerstick) 84 mg/dL (70-99) 76 mg/dL (70-99) 117 mg/dL (70-99) White Blood Count 10.9 x10^3/uL (4.0-11.0) Red Blood Count 4.93 x10^6/uL (3.50-5.40) Hemoglobin 11.1 g/dL (12.0-15.5) Hematocrit 39.3 % (36.0-47.0) Mean Corpuscular Volume 80 fL (79-100) Mean Corpuscular Hemoglobin 23 pg (25-35) Mean Corpuscular Hemoglobin Concent 28 g/dL (31-37) Red Cell Distribution Width 22.0 % (11.5-14.5) Platelet Count 130 x10^3/uL (140-400) Neutrophils (%) (Auto) 82 % (31-73) Lymphocytes (%) (Auto) 11 % (24-48) Monocytes (%) (Auto) 6 % (0-9) Eosinophils (%) (Auto) 1 % (0-3) Basophils (%) (Auto) 0 % (0-3) Neutrophils # (Auto) 8.9 x10^3uL (1.8-7.7) Lymphocytes # (Auto) 1.2 x10^3/uL (1.0-4.8) Monocytes # (Auto) 0.6 x10^3/uL (0.0-1.1) Eosinophils # (Auto) 0.1 x10^3/uL (0.0-0.7) Basophils # (Auto) 0.0 x10^3/uL (0.0-0.2) Sodium Level 144 mmol/L (136-145) Potassium Level 3.9 mmol/L (3.5-5.1) Chloride Level 107 mmol/L (98-107) Carbon Dioxide Level 23 mmol/L (21-32) Anion Gap 14 (6-14) Blood Urea Nitrogen 22 mg/dL (7-20) Creatinine 1.0 mg/dL (0.6-1.0) Estimated GFR (Cockcroft-Gault) 53.8 Glucose Level 64 mg/dL (70-99) Calcium Level 8.1 mg/dL (8.5-10.1) Objective Assessment Acute respiratory failure, better Encephalopathy, better Leukocytosis, better Pulmonary infiltrate A fib CHF Pleural effusion MRSA screen positive Plan Plan of Care cont vanc, Zosyn and Levaquin for now Supportive care D/w daughter Patient seen and examined. Chart reviewed. Case discussed with [employer]VISING COOK. Agree with above plan. SOFIE KAY APRN Sep 08, 2016 11:15 BERNABE COLLAZO MD Sep 08, 2016 16:53
[2016-09-08] MEDS: VANCOMYCIN PER PHARMACY MC PRN ×2 (13:28→13:30)
[2016-09-08] MEDS ORDERED: VANCOMYCIN 1.25 GM in IV NORMAL SALINE 250ML 250 ML IV SCH (13:30)
[2016-09-08] MEDS: VANCOMYCIN 750 MG in IV NORMAL SALINE 250ML 250 ML IV SCH (13:59)
[2016-09-08] MEDS: DABIGATRAN ETEXILATE 150 MG CAPSULE. PO SCH (21:08)
[2016-09-08] MEDS: ACETAMINOPHEN 325 MG TABLET. PO PRN (21:08)
[2016-09-08] MEDS: ATORVASTATIN CALCIUM 20 MG TABLET PO SCH (21:08)
[2016-09-09] MEDS: VANCOMYCIN 750 MG in IV NORMAL SALINE 250ML 250 ML IV SCH ×2 (00:29→13:40)
[2016-09-09 03:21] VITALS: BP 129/78
[2016-09-09 05:42] LABS: BASO % 0 % (0-3); EOS % 1 % (0-3); HEMATOCRIT 36.8 % (36.0-47.0); HEMOGLOBIN 11.1 g/dL (12.0-15.5); LYMPH % 10 % (24-48); MEAN CORPUSCULAR HEMOGLOBIN 23 pg (25-35); MEAN CORPUSCULAR HGB CONC 30 g/dL (31-37); MEAN CORPUSCULAR VOLUME 76 fL (79-100); MONO % 6 % (0-9); NEUT % 83 % (31-73); PLATELET COUNT 130 x10^3/uL (140-400); RED BLOOD COUNT 4.81 x10^6/uL (3.50-5.40); RED CELL DISTRIBUTION WIDTH 21.2 % (11.5-14.5); WHITE BLOOD COUNT 9.5 x10^3/uL (4.0-11.0)
[2016-09-09] MEDS: PIPERACILLIN/TAZOBACTAM 2.25 GM in IV NORMAL SALINE 50ML 50 ML IV SCH ×3 (05:55→18:00)
[2016-09-09 06:08] LABS: CALCIUM 8.3 mg/dL (8.5-10.1); CREATININE 1.1 mg/dL (0.6-1.0); GFR 48.2; POTASSIUM 3.5 mmol/L (3.5-5.1)
[2016-09-09 06:29] VITALS: BP 148/72
[2016-09-09] MEDS: INSULIN ASPART 300 UNITS/3 ML INSULN.PEN SQ SCH ×3 (08:00→17:00)
[2016-09-09] MEDS: DABIGATRAN ETEXILATE 150 MG CAPSULE. PO SCH ×2 (09:20→20:35)
[2016-09-09] MEDS: DIGOXIN 125 MCG TABLET. PO SCH (09:20)
[2016-09-09] MEDS: SERTRALINE 50 MG TABLET. PO SCH (09:20)
[2016-09-09] MEDS: PANTOPRAZOLE 40 MG TABLET.DR. PO SCH (09:20)
[2016-09-09] MEDS: FUROSEMIDE 40 MG TABLET. PO SCH ×2 (09:21→17:01)
[2016-09-09] MEDS: POTASSIUM CHLORIDE 20 MEQ TABLET.ER. PO SCH ×3 (09:21→17:03)
[2016-09-09] MEDS: METOPROLOL SUCC 24HR ER 25 MG TAB.ER.24H. PO SCH (09:21)
[2016-09-09] MEDS: VANCOMYCIN PER PHARMACY MC PRN (09:40)
[2016-09-09] MEDS: ANTI-COAG MONITOR BY PHARMACY. MC PRN (09:43)
--- NOTE | 2016-09-09 09:46 | PDOC ---
PROGRESS NOTES Subjective Subjective feels better. complains of low back pain. will order imaging studies to rule out a fracture. not short of breath. potassium 3.5 and will increase kcl. blood sugars okay with diet. Objective Objective Vital Signs Date Time Temp Pulse Resp B/P (MAP) Pulse Ox O2 Delivery O2 Flow Rate FiO2 09/09/16 09:21 80 148/72 09/09/16 06:29 97.9 18 94 Nasal Cannula 3.0 97.9 Intake and Output 09/09/16 07:00 Intake Total 1098 ml Output Total 601 ml Balance 497 ml Intake Oral 480 ml IV Total 618 ml Output Urine Total 600 ml Stool Total 1 ml # Voids 1 # Bowel Movements 3 Physical Exam Abdomen: Soft Heart: Regular rate, Normal S1, Normal S2 Extremities: No edema General: Alert HEENT: Atraumatic Lungs: Clear to auscultation, Other (decreased breath sounds) Neuro: Normal speech Psych/Mental Status: Mood NL Skin: No rashes Assessment Assessment A: acute on chronic diastolic chf compensated lung infiltrate right pleural effusion persistent atrial fibrillation treated with pradaxa diabetes mellitus type 2 with nephropathy low back pain osteoporosis P: increase kcl PT and OT continue furosemide continue oxygen continue pradaxa x ray of sacrum and coccyx ct scan of lumbar spine and pelvis without iv contrast continue iv antibiotics Comment Review of Relevant I have reviewed the following items nikita (where applicable) has been applied. Labs Laboratory Tests Test 09/07/16 11:44 09/07/16 17:47 09/08/16 04:30 09/08/16 07:37 Glucose (Fingerstick) 84 mg/dL (70-99) 76 mg/dL (70-99) 117 mg/dL (70-99) White Blood Count 10.9 x10^3/uL (4.0-11.0) Red Blood Count 4.93 x10^6/uL (3.50-5.40) Hemoglobin 11.1 g/dL (12.0-15.5) Hematocrit 39.3 % (36.0-47.0) Mean Corpuscular Volume 80 fL (79-100) Mean Corpuscular Hemoglobin 23 pg (25-35) Mean Corpuscular Hemoglobin Concent 28 g/dL (31-37) Red Cell Distribution Width 22.0 % (11.5-14.5) Platelet Count 130 x10^3/uL (140-400) Neutrophils (%) (Auto) 82 % (31-73) Lymphocytes (%) (Auto) 11 % (24-48) Monocytes (%) (Auto) 6 % (0-9) Eosinophils (%) (Auto) 1 % (0-3) Basophils (%) (Auto) 0 % (0-3) Neutrophils # (Auto) 8.9 x10^3uL (1.8-7.7) Lymphocytes # (Auto) 1.2 x10^3/uL (1.0-4.8) Monocytes # (Auto) 0.6 x10^3/uL (0.0-1.1) Eosinophils # (Auto) 0.1 x10^3/uL (0.0-0.7) Basophils # (Auto) 0.0 x10^3/uL (0.0-0.2) Sodium Level 144 mmol/L (136-145) Potassium Level 3.9 mmol/L (3.5-5.1) Chloride Level 107 mmol/L (98-107) Carbon Dioxide Level 23 mmol/L (21-32) Anion Gap 14 (6-14) Blood Urea Nitrogen 22 mg/dL (7-20) Creatinine 1.0 mg/dL (0.6-1.0) Estimated GFR (Cockcroft-Gault) 53.8 Glucose Level 64 mg/dL (70-99) Calcium Level 8.1 mg/dL (8.5-10.1) Test 09/08/16 11:30 09/08/16 11:58 09/08/16 17:01 09/08/16 21:09 Vancomycin Level Trough 13.6 mcg/mL (10.0-20.0) Vancomycin Last Dose Date 09/07/16 Vancomycin Last Dose Time 1200 Glucose (Fingerstick) 113 mg/dL (70-99) 87 mg/dL (70-99) 85 mg/dL (70-99) Test 09/09/16 04:00 White Blood Count 9.5 x10^3/uL (4.0-11.0) Red Blood Count 4.81 x10^6/uL (3.50-5.40) Hemoglobin 11.1 g/dL (12.0-15.5) Hematocrit 36.8 % (36.0-47.0) Mean Corpuscular Volume 76 fL (79-100) Mean Corpuscular Hemoglobin 23 pg (25-35) Mean Corpuscular Hemoglobin Concent 30 g/dL (31-37) Red Cell Distribution Width 21.2 % (11.5-14.5) Platelet Count 130 x10^3/uL (140-400) Neutrophils (%) (Auto) 83 % (31-73) Lymphocytes (%) (Auto) 10 % (24-48) Monocytes (%) (Auto) 6 % (0-9) Eosinophils (%) (Auto) 1 % (0-3) Basophils (%) (Auto) 0 % (0-3) Neutrophils # (Auto) 7.9 x10^3uL (1.8-7.7) Lymphocytes # (Auto) 1.0 x10^3/uL (1.0-4.8) Monocytes # (Auto) 0.5 x10^3/uL (0.0-1.1) Eosinophils # (Auto) 0.1 x10^3/uL (0.0-0.7) Basophils # (Auto) 0.0 x10^3/uL (0.0-0.2) Sodium Level 144 mmol/L (136-145) Potassium Level 3.5 mmol/L (3.5-5.1) Chloride Level 106 mmol/L (98-107) Carbon Dioxide Level 30 mmol/L (21-32) Anion Gap 8 (6-14) Blood Urea Nitrogen 17 mg/dL (7-20) Creatinine 1.1 mg/dL (0.6-1.0) Estimated GFR (Cockcroft-Gault) 48.2 Glucose Level 82 mg/dL (70-99) Calcium Level 8.3 mg/dL (8.5-10.1) Laboratory Tests Test 09/08/16 11:30 09/08/16 11:58 09/08/16 17:01 09/08/16 21:09 Vancomycin Level Trough 13.6 mcg/mL (10.0-20.0) Vancomycin Last Dose Date 09/07/16 Vancomycin Last Dose Time 1200 Glucose (Fingerstick) 113 mg/dL (70-99) 87 mg/dL (70-99) 85 mg/dL (70-99) Test 09/09/16 04:00 White Blood Count 9.5 x10^3/uL (4.0-11.0) Red Blood Count 4.81 x10^6/uL (3.50-5.40) Hemoglobin 11.1 g/dL (12.0-15.5) Hematocrit 36.8 % (36.0-47.0) Mean Corpuscular Volume 76 fL (79-100) Mean Corpuscular Hemoglobin 23 pg (25-35) Mean Corpuscular Hemoglobin Concent 30 g/dL (31-37) Red Cell Distribution Width 21.2 % (11.5-14.5) Platelet Count 130 x10^3/uL (140-400) Neutrophils (%) (Auto) 83 % (31-73) Lymphocytes (%) (Auto) 10 % (24-48) Monocytes (%) (Auto) 6 % (0-9) Eosinophils (%) (Auto) 1 % (0-3) Basophils (%) (Auto) 0 % (0-3) Neutrophils # (Auto) 7.9 x10^3uL (1.8-7.7) Lymphocytes # (Auto) 1.0 x10^3/uL (1.0-4.8) Monocytes # (Auto) 0.5 x10^3/uL (0.0-1.1) Eosinophils # (Auto) 0.1 x10^3/uL (0.0-0.7) Basophils # (Auto) 0.0 x10^3/uL (0.0-0.2) Sodium Level 144 mmol/L (136-145) Potassium Level 3.5 mmol/L (3.5-5.1) Chloride Level 106 mmol/L (98-107) Carbon Dioxide Level 30 mmol/L (21-32) Anion Gap 8 (6-14) Blood Urea Nitrogen 17 mg/dL (7-20) Creatinine 1.1 mg/dL (0.6-1.0) Estimated GFR (Cockcroft-Gault) 48.2 Glucose Level 82 mg/dL (70-99) Calcium Level 8.3 mg/dL (8.5-10.1) Medications Current Medications Albuterol/ Ipratropium (Duoneb) 3 ml 1X ONCE NEB Last administered on t 10:56; Start 09/06/16 at 10:30; Stop 09/06/16 at 10:31; Status DC Albuterol Sulfate (Ventolin Neb Soln) 7.5 mg 1X ONCE CONT NEB Last administered on 09/06/16 10:55; Start 09/06/16 at 10:45; Stop 09/06/16 at 10:46 ; Status DC Methylprednisolone Sodium Succinate (SOLU-Medrol 125MG VIAL) 125 mg 1X ONCE IV Last administered on 09/06/16 11:06; Start 09/06/16 at 11:15; Stop 09/06/16 at 11:16; Status DC Sodium Chloride 1,000 ml @ 1,000 mls/hr 1X ONCE IV ; Start 09/06/16 at 11:00; Stop 09/06/16 at 11:00; Status DC Vancomycin HCl (Vanco Per Pharmacy) 1 each PRN DAILY PRN MC SEE COMMENTS Last administered on 09/08/16 13:30; Start 09/06/16 at 11:15 Levofloxacin/ Dextrose (Levaquin Per Pharmacy) 1 each PRN DAILY PRN MC SEE COMMENTS; Start 09/06/16 at 11:15; Status UNV Piperacillin Sod/ Tazobactam Sod (Zosyn Per Pharmacy) 1 each PRN DAILY PRN MC SEE COMMENTS; Start 09/06/16 at 11:15; Status UNV Sodium Chloride 500 ml @ 500 mls/hr 1X ONCE IV Last administered on 11:23; Start 09/06/16 at 11:30; Stop 09/06/16 at 12:29; Status DC Vancomycin HCl 1.5 gm/Sodium Chloride 500 ml @ 250 mls/hr 1X ONCE IV Last administered on 09/06/16 12:13; Start 09/06/16 at 11:30; Stop 09/06/16 at 13:29 ; Status DC Levofloxacin/ Dextrose 150 ml @ 100 mls/hr Q48H IV Last administered on 11:24; Start 09/06/16 at 12:00 Piperacillin Sod/ Tazobactam Sod 2.25 gm/Sodium Chloride 50 ml @ 100 mls/hr Q6HRS IV Last administered on 09/09/16 05:55; Start 09/06/16 at 12:00 Furosemide (Lasix) 40 mg 1X ONCE IVP Last administered on 09/06/16 11:57; Start 09/06/16 at 12:00; Stop 09/06/16 at 12:01; Status DC Pantoprazole Sodium (Protonix) 40 mg DAILY PO Last administered on 09/09/16 09 :20; Start 09/07/16 at 09:00 Metoprolol Succinate (Toprol Xl) 25 mg DAILY PO Last administered on 09/09/16 09:21; Start 09/07/16 at 09:00 Digoxin (Lanoxin) 125 mcg DAILY PO Last administered on 09/09/16 09:20; Start 09/07/16 at 09:00 Furosemide (Lasix) 40 mg Q12HR IVP Last administered on 09/07/16 09:32; Start 09/06/16 at 21:00; Stop 09/07/16 at 11:01; Status DC Potassium Chloride (Klor-Con) 20 meq TIDWMEALS PO Last administered on 09:31; Start 09/06/16 at 14:00; Stop 09/07/16 at 11:08; Status DC Sertraline HCl (Zoloft) 50 mg DAILY PO Last administered on 09/09/16 09:20; Start 09/07/16 at 09:00 Atorvastatin Calcium (Lipitor) 20 mg QHS PO Last administered on 09/08/16 21: 08; Start 09/06/16 at 21:00 Dabigatran (Pradaxa) 75 mg BID PO Last administered on 09/08/16 08:43; Start 09/06/16 at 21:00; Stop 09/08/16 at 09:42; Status DC Albuterol Sulfate (Ventolin Neb Soln) 2.5 mg PRN Q4HRS PRN NEB WHEEZING; Start 09/06/16 at 13:15 Lorazepam (Ativan) 0.5 mg PRN Q8HRS PRN PO ANXIETY / AGITATION Last administered on 09/08/16 09:59; Start 09/06/16 at 13:00 Acetaminophen (Tylenol) 325 mg Q4HRS PRN PO MILD PAIN / TEMP Last administered on 09/08/16 21:08; Start 09/06/16 at 13:00 Insulin Aspart (NovoLOG) 0-6 UNITS TIDWMEALS SQ ; Start 09/06/16 at 17:00 Info (Anti-Coagulation Monitoring By Pharmacy) 1 each PRN DAILY PRN MC SEE COMMENTS Last administered on 09/08/16 09:23; Start 09/06/16 at 13:15 Vancomycin HCl 1 gm/Sodium Chloride 250 ml @ 250 mls/hr Q24H IV Last administered on 09/07/16 12:15; Start 09/07/16 at 12:00; Stop 09/08/16 at 13:01 ; Status DC Vancomycin HCl 1 each 1X ONCE MC ; Start 09/08/16 at 11:30; Stop 09/08/16 at 11 :31; Status DC Furosemide (Lasix) 40 mg BID PO ; Start 09/07/16 at 21:00; Stop 09/07/16 at 21: 00; Status DC Potassium Chloride (Klor-Con) 20 meq BIDWMEALS PO Last administered on 09:21; Start 09/07/16 at 17:00 Furosemide (Lasix) 40 mg [id number] PO ; Start 09/07/16 at 14:00; Stop 09/07/16 at 14 :00; Status DC Furosemide (Lasix) 40 mg [id number] PO Last administered on 09/09/16 09:21; Start 09/07/16 at 16:00 Dabigatran (Pradaxa) 150 mg BID PO Last administered on 09/09/16 09:20; Start 09/08/16 at 21:00 Vancomycin HCl 1.25 gm/Sodium Chloride 250 ml @ 167 mls/hr Q24H IV ; Start at 13:30; Status Cancel Vancomycin HCl 750 mg/Sodium Chloride 250 ml @ 250 mls/hr Q12H IV Last administered on 09/09/16 00:29; Start 09/08/16 at 13:30 Active Scripts Active Furosemide 80 Mg Tablet 1 Tab PO BID 30 Days Amaryl (Glimepiride) 2 Mg Tablet 1 Mg PO DAILY 30 Days Klor-Con M20 (Potassium Chloride) 20 Meq Tab.er.prt 20 Meq PO TIDWMEALS 30 Days Sertraline Hcl 50 Mg Tablet 50 Mg PO DAILY 30 Days Spiriva (Tiotropium [place]) 18 Mcg Cap.w.dev 1 Cap IH DAILY Pradaxa (Dabigatran Etexilate Mesylate) 150 Mg Capsule 150 Mg PO BID Reported Lorazepam 0.5 Mg Tablet 0.5 Mg PO TID Protonix (Pantoprazole Sodium) 40 Mg Tablet.dr 1 Tab PO DAILYAC NITROGLYCERIN SubLingual (Nitroglycerin) 0.4 Mg Tab.subl 0.4 Mg SL PRN Q5MIN PRN Metoprolol Tartrate 25 Mg Tablet 1 Tab PO DAILY Lipitor (Atorvastatin Calcium) 20 Mg Tablet 20 Mg PO HS Albuterol Sulfate Neb Soln (Albuterol Sulfate) 2.5 Mg/3 Ml Vial.neb 1 Vial NEB PRN Q4HRS PRN Digoxin 125 Mcg Tablet 1 Tab PO DAILY Vitals/I & O Vital Sign - Last 24 Hours 09/08/16 09/08/16 09/08/16 09/08/16 11:00 12:00 15:00 16:00 Temp 99.0 98.8 99.0 98.8 Pulse 76 70 Resp 35 30 B/P (MAP) 111/60 (77) 141/76 (97) Pulse Ox 96 95 O2 Delivery Ventilator Nasal Cannula O2 Flow Rate 3.0 3.0 3.0 3.0 09/08/16 09/08/16 09/08/16 09/09/16 19:25 19:25 22:54 03:21 Temp 98.5 98.6 98.7 98.5 98.6 98.7 Pulse 61 67 72 Resp 18 18 18 B/P (MAP) 131/65 (87) 115/62 (79) 129/78 (95) Pulse Ox 93 92 94 O2 Delivery Nasal Cannula Nasal Cannula Nasal Cannula Nasal Cannula O2 Flow Rate 3.0 3.0 3.0 3.0 09/09/16 09/09/16 09/09/16 06:29 09:20 09:21 Temp 97.9 97.9 Pulse 71 80 80 Resp 18 B/P (MAP) 148/72 (97) 148/72 Pulse Ox 94 O2 Delivery Nasal Cannula O2 Flow Rate 3.0 Intake and Output 09/08/16 09/08/16 09/09/16 15:00 23:00 07:00 Intake Total 440 ml 658 ml Output Total 75 ml 126 ml 400 ml Balance 365 ml 532 ml -400 ml MOR MALCOLM MD Sep 09, 2016 09:46
[2016-09-09] MEDS ORDERED: ONDANSETRON ODT 4 MG TAB.RAPDIS. PO PRN (10:00)
--- NOTE | 2016-09-09 10:49 | RAD ---
Indication respiratory failure cough and shortness of breath. A single view of the chest was obtained and is compared to an examination 2 days previously. There is unchanged cardiomegaly. Gross congestive heart failure is not seen. The left hemithorax is clear. There is increasing right pleural fluid with associated volume loss in the right lung. Kyphoplasty changes are noted associated with a thoracolumbar vertebral body segment. IMPRESSION: Increasing right pleural fluid. Cardiomegaly, stable.
--- NOTE | 2016-09-09 10:59 | RAD ---
Indication pain. Suspect new vertebral compression fracture. Low back pain. Note is made of an MRI examination 06/28/2016. The lumbar spine was also evaluated, with CT, which is the subject of a separate dictation. There is some generalized soft tissue swelling suggesting a systemic process such as anasarca. There is a small amount of free fluid in the right abdomen and dependent portion of the pelvis. A minute amount of air is noted in the urinary bladder which may reflect instrumentation. The visualized right kidney is quite small. Kyphoplasty changes are noted associated with the right sacrum. There is an old, healed, fracture associated with the right ischium. An acute bony finding is not seen in the pelvis. IMPRESSION: No acute bony finding PQRS Compliance Statement: One or more of the following individualized dose reduction techniques were utilized for this examination: 1. Automated exposure control 2. Adjustment of the mA and/or kV according to patient size 3. Use of iterative reconstruction technique
--- NOTE | 2016-09-09 11:11 | RAD ---
Indication pain. Suspect new vertebral compression fracture. Axial images through the lumbar spine were obtained and reformatted in the coronal and sagittal planes. Disc images were also obtained. Note is made of an MRI examination 06/28/2016. Right pleural fluid is noted. The right kidney is quite small. Extensive vascular calcification is noted. Kyphoplasty changes are noted at L3. There is significant compression of L1 similar to the referenced MRI. Kyphoplasty changes are noted at T11. There is slight compression of T10 relative to the referenced MRI. A definite acute finding in the lumbar spine is not seen. There is a mildly retropulsed bone fragment at the base of T10 which somewhat narrows the canal. There is slight retropulsion of bone associated with the L1 compression fracture. There is some narrowing of the canal diameter at L4-5 compatible with mild spinal stenosis. There is mild canal narrowing at L2-3. IMPRESSION: Chronic changes in the lumbar spine. An acute bony finding in the lumbar spine is not seen. There is mild canal narrowing at L2-3 and L4-5. New mild compression of T10 relative to an examination 06/28/2016 bone and/or calcified disc slightly narrows the canal at T10-11 PQRS Compliance Statement: One or more of the following individualized dose reduction techniques were utilized for this examination: 1. Automated exposure control 2. Adjustment of the mA and/or kV according to patient size 3. Use of iterative reconstruction technique
[2016-09-09 11:35] VITALS: BP 158/75
--- NOTE | 2016-09-09 11:51 | PDOC ---
PULMONARY PROGRESS NOTES Subjective on 02, is tired, has sob, occ cough, has back pain Vitals Vital Signs Date Time Temp Pulse Resp B/P (MAP) Pulse Ox O2 Delivery O2 Flow Rate FiO2 09/09/16 11:15 94 Nasal Cannula 3.0 09/09/16 09:21 80 148/72 09/09/16 06:29 97.9 18 97.9 ROS: No Nausea General: Alert, Oriented X4, No acute distress HEENT: Other (nc at perrl) Lungs: Crackles, Other Cardiovascular: S1, S2 Abdomen: Soft, Non-tender Neuro Exam: Alert Extremities: No Edema Skin: Warm Labs Laboratory Tests Test 09/07/16 17:47 09/08/16 04:30 09/08/16 07:37 09/08/16 11:30 Glucose (Fingerstick) 76 mg/dL (70-99) 117 mg/dL (70-99) White Blood Count 10.9 x10^3/uL (4.0-11.0) Red Blood Count 4.93 x10^6/uL (3.50-5.40) Hemoglobin 11.1 g/dL (12.0-15.5) Hematocrit 39.3 % (36.0-47.0) Mean Corpuscular Volume 80 fL (79-100) Mean Corpuscular Hemoglobin 23 pg (25-35) Mean Corpuscular Hemoglobin Concent 28 g/dL (31-37) Red Cell Distribution Width 22.0 % (11.5-14.5) Platelet Count 130 x10^3/uL (140-400) Neutrophils (%) (Auto) 82 % (31-73) Lymphocytes (%) (Auto) 11 % (24-48) Monocytes (%) (Auto) 6 % (0-9) Eosinophils (%) (Auto) 1 % (0-3) Basophils (%) (Auto) 0 % (0-3) Neutrophils # (Auto) 8.9 x10^3uL (1.8-7.7) Lymphocytes # (Auto) 1.2 x10^3/uL (1.0-4.8) Monocytes # (Auto) 0.6 x10^3/uL (0.0-1.1) Eosinophils # (Auto) 0.1 x10^3/uL (0.0-0.7) Basophils # (Auto) 0.0 x10^3/uL (0.0-0.2) Sodium Level 144 mmol/L (136-145) Potassium Level 3.9 mmol/L (3.5-5.1) Chloride Level 107 mmol/L (98-107) Carbon Dioxide Level 23 mmol/L (21-32) Anion Gap 14 (6-14) Blood Urea Nitrogen 22 mg/dL (7-20) Creatinine 1.0 mg/dL (0.6-1.0) Estimated GFR (Cockcroft-Gault) 53.8 Glucose Level 64 mg/dL (70-99) Calcium Level 8.1 mg/dL (8.5-10.1) Vancomycin Level Trough 13.6 mcg/mL (10.0-20.0) Vancomycin Last Dose Date 09/07/16 Vancomycin Last Dose Time 1200 Test 09/08/16 11:58 09/08/16 17:01 09/08/16 21:09 09/09/16 04:00 Glucose (Fingerstick) 113 mg/dL (70-99) 87 mg/dL (70-99) 85 mg/dL (70-99) White Blood Count 9.5 x10^3/uL (4.0-11.0) Red Blood Count 4.81 x10^6/uL (3.50-5.40) Hemoglobin 11.1 g/dL (12.0-15.5) Hematocrit 36.8 % (36.0-47.0) Mean Corpuscular Volume 76 fL (79-100) Mean Corpuscular Hemoglobin 23 pg (25-35) Mean Corpuscular Hemoglobin Concent 30 g/dL (31-37) Red Cell Distribution Width 21.2 % (11.5-14.5) Platelet Count 130 x10^3/uL (140-400) Neutrophils (%) (Auto) 83 % (31-73) Lymphocytes (%) (Auto) 10 % (24-48) Monocytes (%) (Auto) 6 % (0-9) Eosinophils (%) (Auto) 1 % (0-3) Basophils (%) (Auto) 0 % (0-3) Neutrophils # (Auto) 7.9 x10^3uL (1.8-7.7) Lymphocytes # (Auto) 1.0 x10^3/uL (1.0-4.8) Monocytes # (Auto) 0.5 x10^3/uL (0.0-1.1) Eosinophils # (Auto) 0.1 x10^3/uL (0.0-0.7) Basophils # (Auto) 0.0 x10^3/uL (0.0-0.2) Sodium Level 144 mmol/L (136-145) Potassium Level 3.5 mmol/L (3.5-5.1) Chloride Level 106 mmol/L (98-107) Carbon Dioxide Level 30 mmol/L (21-32) Anion Gap 8 (6-14) Blood Urea Nitrogen 17 mg/dL (7-20) Creatinine 1.1 mg/dL (0.6-1.0) Estimated GFR (Cockcroft-Gault) 48.2 Glucose Level 82 mg/dL (70-99) Calcium Level 8.3 mg/dL (8.5-10.1) Laboratory Tests Test 09/08/16 11:58 09/08/16 17:01 09/08/16 21:09 09/09/16 04:00 Glucose (Fingerstick) 113 mg/dL (70-99) 87 mg/dL (70-99) 85 mg/dL (70-99) White Blood Count 9.5 x10^3/uL (4.0-11.0) Red Blood Count 4.81 x10^6/uL (3.50-5.40) Hemoglobin 11.1 g/dL (12.0-15.5) Hematocrit 36.8 % (36.0-47.0) Mean Corpuscular Volume 76 fL (79-100) Mean Corpuscular Hemoglobin 23 pg (25-35) Mean Corpuscular Hemoglobin Concent 30 g/dL (31-37) Red Cell Distribution Width 21.2 % (11.5-14.5) Platelet Count 130 x10^3/uL (140-400) Neutrophils (%) (Auto) 83 % (31-73) Lymphocytes (%) (Auto) 10 % (24-48) Monocytes (%) (Auto) 6 % (0-9) Eosinophils (%) (Auto) 1 % (0-3) Basophils (%) (Auto) 0 % (0-3) Neutrophils # (Auto) 7.9 x10^3uL (1.8-7.7) Lymphocytes # (Auto) 1.0 x10^3/uL (1.0-4.8) Monocytes # (Auto) 0.5 x10^3/uL (0.0-1.1) Eosinophils # (Auto) 0.1 x10^3/uL (0.0-0.7) Basophils # (Auto) 0.0 x10^3/uL (0.0-0.2) Sodium Level 144 mmol/L (136-145) Potassium Level 3.5 mmol/L (3.5-5.1) Chloride Level 106 mmol/L (98-107) Carbon Dioxide Level 30 mmol/L (21-32) Anion Gap 8 (6-14) Blood Urea Nitrogen 17 mg/dL (7-20) Creatinine 1.1 mg/dL (0.6-1.0) Estimated GFR (Cockcroft-Gault) 48.2 Glucose Level 82 mg/dL (70-99) Calcium Level 8.3 mg/dL (8.5-10.1) Medications Active Scripts Medications Dose Route/Sig Max Daily Dose Days Date Category Lorazepam 0.5 Mg Tablet 0.5 Mg PO TID 09/06/16 Reported Furosemide 80 Mg Tablet 1 Tab PO BID 30 08/18/16 Rx Amaryl (Glimepiride) 2 Mg Tablet 1 Mg PO DAILY 30 08/18/16 Rx Klor-Con M20 (Potassium Chloride) 20 Meq Tab.er.prt 20 Meq PO TIDWMEALS 30 07/18/16 Rx Sertraline Hcl 50 Mg Tablet 50 Mg PO DAILY 30 07/18/16 Rx Spiriva (Tiotropium [place]) 18 Mcg Cap.w.dev 1 Cap IH DAILY 09/27/15 Rx Pradaxa (Dabigatran Etexilate Mesylate) 150 Mg Capsule 150 Mg PO BID 09/27/15 Rx Protonix (Pantoprazole Sodium) 40 Mg Tablet.dr 1 Tab PO DAILYAC 04/18/15 Reported NITROGLYCERIN SubLingual (Nitroglycerin) 0.4 Mg Tab.subl 0.4 Mg SL PRN Q5MIN PRN 04/18/15 Reported Metoprolol Tartrate 25 Mg Tablet 1 Tab PO DAILY 04/18/15 Reported Lipitor (Atorvastatin Calcium) 20 Mg Tablet 20 Mg PO HS 04/18/15 Reported Albuterol Sulfate Neb Soln (Albuterol Sulfate) 2.5 Mg/3 Ml Vial.neb 1 Vial NEB PRN Q4HRS PRN 04/18/15 Reported Digoxin 125 Mcg Tablet 1 Tab PO DAILY 04/10/15 Reported Comments cxr reviewed, Focal opacity in the right mid to lower lung. Could be secondary to a region of airspace consolidation and pleural effusion. This appears redistributed when compared to prior with slightly better aeration at right lung base but more focal opacity in the right mid to upper lung. Cardiac silhouette is enlarged. Impression . IMPRESSION: 1. Acute on chronic respiratory failure. 2. Possible sepsis. 3. Leukocytosis. 4. Acute exacerbation of chronic obstructive pulmonary disease. 5. Acute on chronic diastolic heart failure. 6. Coronary artery disease. 7. Chronic atrial fibrillation. 8. Elevated troponin. 9. Hypertension. Plan . PLAN: 1. Continue empiric antibiotics. 2. BiPAP prn 3. pain control, avoid oversedation 4. Gentle diuresis. monitor k, cr 5. elevate hob 6. Nebulized treatments. 7. GI prophylaxis. 8. DVT prophylaxis. 9. cont abx 10. cxr, pleural effusion worse, am cxr, may need thoracentesis 11. pt ot discussed w rn, pt and her daughter MIKAL BENITO MD Sep 09, 2016 11:51
--- NOTE | 2016-09-09 12:37 | RAD ---
Indication pain. 2 AP views and a lateral view of the sacrum and coccyx were obtained. An acute bony finding is not seen. Kyphoplasty changes are noted involving the right sacrum. Chronic deformity involving the right ischium is noted.
[2016-09-09] MEDS: ACETAMINOPHEN 325 MG TABLET. PO PRN (12:56)
[2016-09-09 15:00] VITALS: BP 138/70
--- NOTE | 2016-09-09 16:38 | PDOC ---
Infectious Disease Note Subjective Subjective Feeling better Nosebleed earlier + diarrhea, denies cramping, bloating or N/V. 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 SKIN: No rash IV: ok Labs Lab Laboratory Tests Test 09/08/16 17:01 09/08/16 21:09 09/09/16 04:00 09/09/16 12:44 Glucose (Fingerstick) 87 mg/dL (70-99) 85 mg/dL (70-99) 117 mg/dL (70-99) White Blood Count 9.5 x10^3/uL (4.0-11.0) Red Blood Count 4.81 x10^6/uL (3.50-5.40) Hemoglobin 11.1 g/dL (12.0-15.5) Hematocrit 36.8 % (36.0-47.0) Mean Corpuscular Volume 76 fL (79-100) Mean Corpuscular Hemoglobin 23 pg (25-35) Mean Corpuscular Hemoglobin Concent 30 g/dL (31-37) Red Cell Distribution Width 21.2 % (11.5-14.5) Platelet Count 130 x10^3/uL (140-400) Neutrophils (%) (Auto) 83 % (31-73) Lymphocytes (%) (Auto) 10 % (24-48) Monocytes (%) (Auto) 6 % (0-9) Eosinophils (%) (Auto) 1 % (0-3) Basophils (%) (Auto) 0 % (0-3) Neutrophils # (Auto) 7.9 x10^3uL (1.8-7.7) Lymphocytes # (Auto) 1.0 x10^3/uL (1.0-4.8) Monocytes # (Auto) 0.5 x10^3/uL (0.0-1.1) Eosinophils # (Auto) 0.1 x10^3/uL (0.0-0.7) Basophils # (Auto) 0.0 x10^3/uL (0.0-0.2) Sodium Level 144 mmol/L (136-145) Potassium Level 3.5 mmol/L (3.5-5.1) Chloride Level 106 mmol/L (98-107) Carbon Dioxide Level 30 mmol/L (21-32) Anion Gap 8 (6-14) Blood Urea Nitrogen 17 mg/dL (7-20) Creatinine 1.1 mg/dL (0.6-1.0) Estimated GFR (Cockcroft-Gault) 48.2 Glucose Level 82 mg/dL (70-99) Calcium Level 8.3 mg/dL (8.5-10.1) CHEST AP ONLY Indication respiratory failure cough and shortness of breath. A single view of the chest was obtained and is compared to an examination 2 days previously. There is unchanged cardiomegaly. Gross congestive heart failure is not seen. The left hemithorax is clear. There is increasing right pleural fluid with associated volume loss in the right lung. Kyphoplasty changes are noted associated with a thoracolumbar vertebral body segment. IMPRESSION: Increasing right pleural fluid. Cardiomegaly, stable. Objective Assessment Acute respiratory failure, better Encephalopathy, better Leukocytosis, better Pulmonary infiltrate A fib CHF Pleural effusion MRSA screen positive Plan Plan of Care vanc, Zosyn and Levaquin Supportive care Patient seen and examined. Chart reviewed in detail. Case discussed with BAIT MAN. Agree with above SOFIE KAY APRN Sep 09, 2016 16:38 BERNABE COLLAZO MD Sep 09, 2016 17:24
[2016-09-09 19:15] VITALS: BP 148/77
[2016-09-09] MEDS: ATORVASTATIN CALCIUM 20 MG TABLET PO SCH (20:34)
[2016-09-09 22:19] VITALS: BP 135/65
[2016-09-10] MEDS: PIPERACILLIN/TAZOBACTAM 2.25 GM in IV NORMAL SALINE 50ML 50 ML IV SCH ×4 (00:12→17:27)
[2016-09-10] MEDS: VANCOMYCIN 750 MG in IV NORMAL SALINE 250ML 250 ML IV SCH ×2 (01:04→14:25)
[2016-09-10 03:29] VITALS: BP 128/79
[2016-09-10 07:00] VITALS: BP 141/100
[2016-09-10 07:18] LABS: BASO % 0 % (0-3); CALCIUM 9.2 mg/dL (8.5-10.1); CREATININE 0.9 mg/dL (0.6-1.0); EOS % 0 % (0-3); GFR 60.7; HEMOGLOBIN 11.3 g/dL (12.0-15.5); LYMPH # 0.8 x10^3/uL (1.0-4.8); LYMPH % 6 % (24-48); MAGNESIUM 2.2 mg/dL (1.8-2.4); MEAN CORPUSCULAR HEMOGLOBIN 22 pg (25-35); MEAN CORPUSCULAR HGB CONC 29 g/dL (31-37); MEAN CORPUSCULAR VOLUME 77 fL (79-100); MONO % 5 % (0-9); NEUT % 89 % (31-73); PLATELET COUNT 110 x10^3/uL (140-400); POTASSIUM 3.6 mmol/L (3.5-5.1); RED BLOOD COUNT 5.07 x10^6/uL (3.50-5.40); RED CELL DISTRIBUTION WIDTH 21.2 % (11.5-14.5); WHITE BLOOD COUNT 13.5 x10^3/uL (4.0-11.0)
[2016-09-10 07:20] LABS: HEMATOCRIT 38.2 % (36.0-47.0)
[2016-09-10] MEDS: INSULIN ASPART 300 UNITS/3 ML INSULN.PEN SQ SCH ×3 (08:00→17:00)
[2016-09-10] MEDS: DABIGATRAN ETEXILATE 150 MG CAPSULE. PO SCH ×2 (09:00→20:50)
[2016-09-10] MEDS: POTASSIUM CHLORIDE 20 MEQ TABLET.ER. PO SCH ×3 (09:16→17:27)
[2016-09-10] MEDS: METOPROLOL SUCC 24HR ER 25 MG TAB.ER.24H. PO SCH (09:16)
[2016-09-10] MEDS: PANTOPRAZOLE 40 MG TABLET.DR. PO SCH (09:16)
[2016-09-10] MEDS: SERTRALINE 50 MG TABLET. PO SCH (09:16)
[2016-09-10] MEDS: FUROSEMIDE 40 MG TABLET. PO SCH ×2 (09:17→16:00)
[2016-09-10] MEDS: DIGOXIN 125 MCG TABLET. PO SCH (09:17)
--- NOTE | 2016-09-10 09:17 | PDOC ---
PROGRESS NOTES Subjective Subjective feels better . cxr shows increased right pleural effusion. not short of breath. MRI of lumbar spine and pelvis and x ray of sacrum and coccyx shows no new fractures.lab reviewed. WBC higher. Objective Objective Vital Signs Date Time Temp Pulse Resp B/P (MAP) Pulse Ox O2 Delivery O2 Flow Rate FiO2 09/10/16 07:30 Nasal Cannula 3.0 09/10/16 07:00 97.8 73 20 141/100 (114) 100 97.8 Intake and Output 09/10/16 06:59 Intake Total 710 ml Output Total 1150 ml Balance -440 ml Intake Oral 660 ml IV Total 50 ml Output Urine Total 1150 ml # Bowel Movements 3 Physical Exam Abdomen: Soft Heart: Regular rate, Normal S1, Normal S2 Extremities: No edema General: Alert HEENT: Atraumatic Lungs: Other (decreased breath sounds right posteriorly) Neuro: Normal speech Psych/Mental Status: Mood NL Skin: No rashes Assessment Assessment increased right pleural effusion acute diastolic chf compensated on chronic diastolic chf persistent atrial fibrillation. 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 Labs Laboratory Tests Test 09/08/16 11:30 09/08/16 11:58 09/08/16 17:01 09/08/16 21:09 Vancomycin Level Trough 13.6 mcg/mL (10.0-20.0) Vancomycin Last Dose Date 09/07/16 Vancomycin Last Dose Time 1200 Glucose (Fingerstick) 113 mg/dL (70-99) 87 mg/dL (70-99) 85 mg/dL (70-99) Test 09/09/16 04:00 09/09/16 12:44 09/09/16 16:54 09/09/16 20:34 White Blood Count 9.5 x10^3/uL (4.0-11.0) Red Blood Count 4.81 x10^6/uL (3.50-5.40) Hemoglobin 11.1 g/dL (12.0-15.5) Hematocrit 36.8 % (36.0-47.0) Mean Corpuscular Volume 76 fL (79-100) Mean Corpuscular Hemoglobin 23 pg (25-35) Mean Corpuscular Hemoglobin Concent 30 g/dL (31-37) Red Cell Distribution Width 21.2 % (11.5-14.5) Platelet Count 130 x10^3/uL (140-400) Neutrophils (%) (Auto) 83 % (31-73) Lymphocytes (%) (Auto) 10 % (24-48) Monocytes (%) (Auto) 6 % (0-9) Eosinophils (%) (Auto) 1 % (0-3) Basophils (%) (Auto) 0 % (0-3) Neutrophils # (Auto) 7.9 x10^3uL (1.8-7.7) Lymphocytes # (Auto) 1.0 x10^3/uL (1.0-4.8) Monocytes # (Auto) 0.5 x10^3/uL (0.0-1.1) Eosinophils # (Auto) 0.1 x10^3/uL (0.0-0.7) Basophils # (Auto) 0.0 x10^3/uL (0.0-0.2) Sodium Level 144 mmol/L (136-145) Potassium Level 3.5 mmol/L (3.5-5.1) Chloride Level 106 mmol/L (98-107) Carbon Dioxide Level 30 mmol/L (21-32) Anion Gap 8 (6-14) Blood Urea Nitrogen 17 mg/dL (7-20) Creatinine 1.1 mg/dL (0.6-1.0) Estimated GFR (Cockcroft-Gault) 48.2 Glucose Level 82 mg/dL (70-99) Calcium Level 8.3 mg/dL (8.5-10.1) Glucose (Fingerstick) 117 mg/dL (70-99) 100 mg/dL (70-99) 100 mg/dL (70-99) Test 09/10/16 06:40 09/10/16 07:53 White Blood Count 13.5 x10^3/uL (4.0-11.0) Red Blood Count 5.07 x10^6/uL (3.50-5.40) Hemoglobin 11.3 g/dL (12.0-15.5) Hematocrit 38.2 % (36.0-47.0) Mean Corpuscular Volume 77 fL (79-100) Mean Corpuscular Hemoglobin 22 pg (25-35) Mean Corpuscular Hemoglobin Concent 29 g/dL (31-37) Red Cell Distribution Width 21.2 % (11.5-14.5) Platelet Count 110 x10^3/uL (140-400) Neutrophils (%) (Auto) 89 % (31-73) Lymphocytes (%) (Auto) 6 % (24-48) Monocytes (%) (Auto) 5 % (0-9) Eosinophils (%) (Auto) 0 % (0-3) Basophils (%) (Auto) 0 % (0-3) Neutrophils # (Auto) 12.0 x10^3uL (1.8-7.7) Lymphocytes # (Auto) 0.8 x10^3/uL (1.0-4.8) Monocytes # (Auto) 0.7 x10^3/uL (0.0-1.1) Eosinophils # (Auto) 0.0 x10^3/uL (0.0-0.7) Basophils # (Auto) 0.0 x10^3/uL (0.0-0.2) Sodium Level 143 mmol/L (136-145) Potassium Level 3.6 mmol/L (3.5-5.1) Chloride Level 104 mmol/L (98-107) Carbon Dioxide Level 31 mmol/L (21-32) Anion Gap 8 (6-14) Blood Urea Nitrogen 11 mg/dL (7-20) Creatinine 0.9 mg/dL (0.6-1.0) Estimated GFR (Cockcroft-Gault) 60.7 Glucose Level 107 mg/dL (70-99) Calcium Level 9.2 mg/dL (8.5-10.1) Magnesium Level 2.2 mg/dL (1.8-2.4) Glucose (Fingerstick) 96 mg/dL (70-99) Laboratory Tests Test 09/09/16 12:44 09/09/16 16:54 09/09/16 20:34 09/10/16 06:40 Glucose (Fingerstick) 117 mg/dL (70-99) 100 mg/dL (70-99) 100 mg/dL (70-99) White Blood Count 13.5 x10^3/uL (4.0-11.0) Red Blood Count 5.07 x10^6/uL (3.50-5.40) Hemoglobin 11.3 g/dL (12.0-15.5) Hematocrit 38.2 % (36.0-47.0) Mean Corpuscular Volume 77 fL (79-100) Mean Corpuscular Hemoglobin 22 pg (25-35) Mean Corpuscular Hemoglobin Concent 29 g/dL (31-37) Red Cell Distribution Width 21.2 % (11.5-14.5) Platelet Count 110 x10^3/uL (140-400) Neutrophils (%) (Auto) 89 % (31-73) Lymphocytes (%) (Auto) 6 % (24-48) Monocytes (%) (Auto) 5 % (0-9) Eosinophils (%) (Auto) 0 % (0-3) Basophils (%) (Auto) 0 % (0-3) Neutrophils # (Auto) 12.0 x10^3uL (1.8-7.7) Lymphocytes # (Auto) 0.8 x10^3/uL (1.0-4.8) Monocytes # (Auto) 0.7 x10^3/uL (0.0-1.1) Eosinophils # (Auto) 0.0 x10^3/uL (0.0-0.7) Basophils # (Auto) 0.0 x10^3/uL (0.0-0.2) Sodium Level 143 mmol/L (136-145) Potassium Level 3.6 mmol/L (3.5-5.1) Chloride Level 104 mmol/L (98-107) Carbon Dioxide Level 31 mmol/L (21-32) Anion Gap 8 (6-14) Blood Urea Nitrogen 11 mg/dL (7-20) Creatinine 0.9 mg/dL (0.6-1.0) Estimated GFR (Cockcroft-Gault) 60.7 Glucose Level 107 mg/dL (70-99) Calcium Level 9.2 mg/dL (8.5-10.1) Magnesium Level 2.2 mg/dL (1.8-2.4) Test 09/10/16 07:53 Glucose (Fingerstick) 96 mg/dL (70-99) Medications Current Medications Albuterol/ Ipratropium (Duoneb) 3 ml 1X ONCE NEB Last administered on 10:56; Start 09/06/16 at 10:30; Stop 09/06/16 at 10:31; Status DC Albuterol Sulfate (Ventolin Neb Soln) 7.5 mg 1X ONCE CONT NEB Last administered on 09/06/16 10:55; Start 09/06/16 at 10:45; Stop 09/06/16 at 10:46 ; Status DC Methylprednisolone Sodium Succinate (SOLU-Medrol 125MG VIAL) 125 mg 1X ONCE IV Last administered on 09/06/16 11:06; Start 09/06/16 at 11:15; Stop 09/06/16 at 11:16; Status DC Sodium Chloride 1,000 ml @ 1,000 mls/hr 1X ONCE IV ; Start 09/06/16 at 11:00; Stop 09/06/16 at 11:00; Status DC Vancomycin HCl (Vanco Per Pharmacy) 1 each PRN DAILY PRN MC SEE COMMENTS Last administered on 09/09/16 09:40; Start 09/06/16 at 11:15 Levofloxacin/ Dextrose (Levaquin Per Pharmacy) 1 each PRN DAILY PRN MC SEE COMMENTS; Start 09/06/16 at 11:15; Status UNV Piperacillin Sod/ Tazobactam Sod (Zosyn Per Pharmacy) 1 each PRN DAILY PRN MC SEE COMMENTS; Start 09/06/16 at 11:15; Status UNV Sodium Chloride 500 ml @ 500 mls/hr 1X ONCE IV Last administered on 11:23; Start 09/06/16 at 11:30; Stop 09/06/16 at 12:29; Status DC Vancomycin HCl 1.5 gm/Sodium Chloride 500 ml @ 250 mls/hr 1X ONCE IV Last administered on 09/06/16 12:13; Start 09/06/16 at 11:30; Stop 09/06/16 at 13:29 ; Status DC Levofloxacin/ Dextrose 150 ml @ 100 mls/hr Q48H IV Last administered on 11:24; Start 09/06/16 at 12:00 Piperacillin Sod/ Tazobactam Sod 2.25 gm/Sodium Chloride 50 ml @ 100 mls/hr Q6HRS IV Last administered on 09/10/16 05:56; Start 09/06/16 at 12:00 Furosemide (Lasix) 40 mg 1X ONCE IVP Last administered on 09/06/16 11:57; Start 09/06/16 at 12:00; Stop 09/06/16 at 12:01; Status DC Pantoprazole Sodium (Protonix) 40 mg DAILY PO Last administered on 09/09/16 09 :20; Start 09/07/16 at 09:00 Metoprolol Succinate (Toprol Xl) 25 mg DAILY PO Last administered on 09/09/16 09:21; Start 09/07/16 at 09:00 Digoxin (Lanoxin) 125 mcg DAILY PO Last administered on 09/09/16 09:20; Start 09/07/16 at 09:00 Furosemide (Lasix) 40 mg Q12HR IVP Last administered on 09/07/16 09:32; Start 09/06/16 at 21:00; Stop 09/07/16 at 11:01; Status DC Potassium Chloride (Klor-Con) 20 meq TIDWMEALS PO Last administered on 09:31; Start 09/06/16 at 14:00; Stop 09/07/16 at 11:08; Status DC Sertraline HCl (Zoloft) 50 mg DAILY PO Last administered on 09/09/16 09:20; Start 09/07/16 at 09:00 Atorvastatin Calcium (Lipitor) 20 mg QHS PO Last administered on 09/09/16 20: 34; Start 09/06/16 at 21:00 Dabigatran (Pradaxa) 75 mg BID PO Last administered on 09/08/16 08:43; Start 09/06/16 at 21:00; Stop 09/08/16 at 09:42; Status DC Albuterol Sulfate (Ventolin Neb Soln) 2.5 mg PRN Q4HRS PRN NEB WHEEZING; Start 09/06/16 at 13:15 Lorazepam (Ativan) 0.5 mg PRN Q8HRS PRN PO ANXIETY / AGITATION Last administered on 09/08/16 09:59; Start 09/06/16 at 13:00 Acetaminophen (Tylenol) 325 mg Q4HRS PRN PO MILD PAIN / TEMP Last administered on 09/09/16 12:56; Start 09/06/16 at 13:00 Insulin Aspart (NovoLOG) 0-6 UNITS TIDWMEALS SQ ; Start 09/06/16 at 17:00 Info (Anti-Coagulation Monitoring By Pharmacy) 1 each PRN DAILY PRN MC SEE COMMENTS Last administered on 09/09/16 09:43; Start 09/06/16 at 13:15 Vancomycin HCl 1 gm/Sodium Chloride 250 ml @ 250 mls/hr Q24H IV Last administered on 09/07/16 12:15; Start 09/07/16 at 12:00; Stop 09/08/16 at 13:01 ; Status DC Vancomycin HCl 1 each 1X ONCE MC ; Start 09/08/16 at 11:30; Stop 09/08/16 at 11 :31; Status DC Furosemide (Lasix) 40 mg BID PO ; Start 09/07/16 at 21:00; Stop 09/07/16 at 21: 00; Status DC Potassium Chloride (Klor-Con) 20 meq BIDWMEALS PO Last administered on 09:21; Start 09/07/16 at 17:00; Stop 09/09/16 at 09:41; Status DC Furosemide (Lasix) 40 mg BID92 PO ; Start 09/07/16 at 14:00; Stop 09/07/16 at 14 :00; Status DC Furosemide (Lasix) 40 mg BID94 PO Last administered on 09/09/16 17:01; Start 09/07/16 at 16:00 Dabigatran (Pradaxa) 150 mg BID PO Last administered on 09/09/16 20:35; Start 09/08/16 at 21:00 Vancomycin HCl 1.25 gm/Sodium Chloride 250 ml @ 167 mls/hr Q24H IV ; Start at 13:30; Status Cancel Vancomycin HCl 750 mg/Sodium Chloride 250 ml @ 250 mls/hr Q12H IV Last administered on 09/10/16 01:04; Start 09/08/16 at 13:30 Potassium Chloride (Klor-Con) 20 meq TIDWMEALS PO Last administered on 17:03; Start 09/09/16 at 12:00 Ondansetron HCl (Zofran Odt) 4 mg PRN Q6HRS PRN PO NAUSEA/VOMITING; Start 09/09 at 10:00 Active Scripts Active Furosemide 80 Mg Tablet 1 Tab PO BID 30 Days Amaryl (Glimepiride) 2 Mg Tablet 1 Mg PO DAILY 30 Days Klor-Con M20 (Potassium Chloride) 20 Meq Tab.er.prt 20 Meq PO TIDWMEALS 30 Days Sertraline Hcl 50 Mg Tablet 50 Mg PO DAILY 30 Days Spiriva (Tiotropium Yoder) 18 Mcg Cap.w.dev 1 Cap IH DAILY Pradaxa (Dabigatran Etexilate Mesylate) 150 Mg Capsule 150 Mg PO BID Reported Lorazepam 0.5 Mg Tablet 0.5 Mg PO TID Protonix (Pantoprazole Sodium) 40 Mg Tablet.dr 1 Tab PO DAILYAC NITROGLYCERIN SubLingual (Nitroglycerin) 0.4 Mg Tab.subl 0.4 Mg SL PRN Q5MIN PRN Metoprolol Tartrate 25 Mg Tablet 1 Tab PO DAILY Lipitor (Atorvastatin Calcium) 20 Mg Tablet 20 Mg PO HS Albuterol Sulfate Neb Soln (Albuterol Sulfate) 2.5 Mg/3 Ml Vial.neb 1 Vial NEB PRN Q4HRS PRN Digoxin 125 Mcg Tablet 1 Tab PO DAILY Vitals/I & O Vital Sign - Last 24 Hours 09/09/16 09/09/16 09/09/16 09/09/16 09:20 09:21 11:15 11:35 Temp 98.0 98.0 Pulse 80 80 71 Resp 20 B/P (MAP) 148/72 158/75 (102) Pulse Ox 94 91 O2 Delivery Nasal Cannula Nasal Cannula O2 Flow Rate 3.0 3.0 09/09/16 09/09/16 09/09/16 09/09/16 15:00 19:15 19:15 22:19 Temp 97.4 97.8 97.8 97.4 97.8 97.8 Pulse 70 75 71 Resp 20 18 18 B/P (MAP) 138/70 (92) 148/77 (100) 135/65 (88) Pulse Ox 95 91 92 O2 Delivery Nasal Cannula Nasal Cannula Nasal Cannula Nasal Cannula O2 Flow Rate 3.0 3.0 3.0 3.0 09/10/16 09/10/1617 03:29 07:00 07:30 Temp 98.4 97.8 98.4 97.8 Pulse 73 73 Resp 18 20 B/P (MAP) 128/79 (95) 141/100 (114) Pulse Ox 94 100 O2 Delivery Nasal Cannula Nasal Cannula O2 Flow Rate 3.0 3.0 Intake and Output 09/09/16 09/09/16 09/10/16 14:59 22:59 06:59 Intake Total 470 ml 240 ml Output Total 550 ml 400 ml 200 ml Balance -80 ml -160 ml -200 ml MOR MALCOLM MD Sep 10, 2016 09:17
--- NOTE | 2016-09-10 10:05 | PDOC ---
Infectious Disease Note Subjective Subjective Comfortable Less diarrhea, denies cramping, bloating or N/V. 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 SKIN: No rash IV: ok Labs Lab Laboratory Tests Test 09/09/16 12:44 09/09/16 16:54 09/09/16 20:34 09/10/16 06:40 Glucose (Fingerstick) 117 mg/dL (70-99) 100 mg/dL (70-99) 100 mg/dL (70-99) White Blood Count 13.5 x10^3/uL (4.0-11.0) Red Blood Count 5.07 x10^6/uL (3.50-5.40) Hemoglobin 11.3 g/dL (12.0-15.5) Hematocrit 38.2 % (36.0-47.0) Mean Corpuscular Volume 77 fL (79-100) Mean Corpuscular Hemoglobin 22 pg (25-35) Mean Corpuscular Hemoglobin Concent 29 g/dL (31-37) Red Cell Distribution Width 21.2 % (11.5-14.5) Platelet Count 110 x10^3/uL (140-400) Neutrophils (%) (Auto) 89 % (31-73) Lymphocytes (%) (Auto) 6 % (24-48) Monocytes (%) (Auto) 5 % (0-9) Eosinophils (%) (Auto) 0 % (0-3) Basophils (%) (Auto) 0 % (0-3) Neutrophils # (Auto) 12.0 x10^3uL (1.8-7.7) Lymphocytes # (Auto) 0.8 x10^3/uL (1.0-4.8) Monocytes # (Auto) 0.7 x10^3/uL (0.0-1.1) Eosinophils # (Auto) 0.0 x10^3/uL (0.0-0.7) Basophils # (Auto) 0.0 x10^3/uL (0.0-0.2) Sodium Level 143 mmol/L (136-145) Potassium Level 3.6 mmol/L (3.5-5.1) Chloride Level 104 mmol/L (98-107) Carbon Dioxide Level 31 mmol/L (21-32) Anion Gap 8 (6-14) Blood Urea Nitrogen 11 mg/dL (7-20) Creatinine 0.9 mg/dL (0.6-1.0) Estimated GFR (Cockcroft-Gault) 60.7 Glucose Level 107 mg/dL (70-99) Calcium Level 9.2 mg/dL (8.5-10.1) Magnesium Level 2.2 mg/dL (1.8-2.4) Test 09/10/16 07:53 Glucose (Fingerstick) 96 mg/dL (70-99) Objective Assessment Acute respiratory failure, better Encephalopathy, better Leukocytosis, better Pulmonary infiltrate A fib CHF Pleural effusion MRSA screen positive Plan Plan of Care vanc, Zosyn and Levaquin (abx started 09/06)-wean soon Dose steroids, 09/06 f/u am labs Supportive care Attending Co-Sign The patient was seen and interviewed as well as examined at the bedside. The chart was reviewed. The case was discussed. Agree with the plan of care. SOFIE KAY APRN Sep 10, 2016 10:05 SWAPNA FRAGA MD Sep 10, 2016 15:18
[2016-09-10 11:00] VITALS: BP 147/73
[2016-09-10] MEDS: LORazepam 0.5 MG TABLET PO PRN ×2 (13:46→22:29)
[2016-09-10] MEDS: VANCOMYCIN PER PHARMACY MC PRN (14:12)
[2016-09-10] MEDS: ANTI-COAG MONITOR BY PHARMACY. MC PRN (14:13)
[2016-09-10] MEDS ORDERED: ACETAMINOPHEN 325 MG TABLET. PO PRN (14:15)
[2016-09-10 15:00] VITALS: BP 107/70
--- NOTE | 2016-09-10 15:43 | CONS ---
DATE OF CONSULTATION: 09/07/2016 REQUESTING PHYSICIAN: Rosalino Harvey MD REASON FOR CONSULTATION: Sepsis. HISTORY OF PRESENT ILLNESS: This is a 75-year-old female with history of congestive heart failure, atrial fibrillation, diabetes, and COPD, who presented with not feeling well, shortness of breath and confusion. The patient was hypoxic, supported by BiPAP and the patient had lactic acidosis. The patient has also Lasix. The patient improved now that she is not requiring BiPAP. The patient also was put on vancomycin, Zosyn and Levaquin. The patient is not able to provide any information. The patient was unresponsive and she came in now. She is more responsive and seen ____ appropriately, no nausea, vomiting, or diarrhea, denies any chest pain, and denies any headache or visual symptoms. PAST MEDICAL HISTORY: Positive for congestive heart failure, atrial fibrillation, COPD, home oxygen use, diabetes mellitus, hypertension, hyperlipidemia, osteoporosis, renal insufficiency, and osteoarthritis. SOCIAL HISTORY: The patient still continues to smoke. No alcohol use or drug use. REVIEW OF SYSTEMS: As per HPI, all other systems reviewed are negative. CURRENT MEDICATIONS: Reviewed. The patient is on Levaquin and Zosyn. PHYSICAL EXAMINATION: GENERAL: Awake female is still on a Ventimask, not in any distress. VITAL SIGNS: Stable, afebrile. HEENT: NAD. NECK: Supple, no JVP, no lymphadenopathy. LUNGS: Clear. HEART: S1, S2 regular. ABDOMEN: Benign. EXTREMITIES: No edema, cyanosis. SKIN: Unremarkable. NEUROLOGIC: The patient is neurologically intact. The patient does have a minor gluteal skin breakdown for which she goes to the wound care center. NEUROLOGIC: The patient is ____ neurologically intact. LABORATORY DATA: White count on admission was 12,000, now down to 9.3. BUN and creatinine is normal. Lactic acid was 2.8. Urinalysis unremarkable. MRSA screen is positive. Cultures are pending. IMAGING STUDIES: Chest x-ray and chest CT done. Chest CT is showing right pleural effusion with some loculation. Chest x-ray showing a right pleural effusion and right middle lobe, lower lobe consolidation. IMPRESSION: 1. Respiratory failure. 2. Encephalopathy. 3. Lactic acidosis/sepsis. 4. Right lower lobe effusion and infection in the right lower lobe cannot be ruled out. 5. Diabetes. 6. Hypertension. RECOMMENDATIONS: I would continue Levaquin and Zosyn for the time being. Supportive care. I will follow the cultures and soon to start scaling down the antibiotics and will continue to follow. Thank you very much, Dr. Harvey, for giving me the opportunity to participate in this patient's care. SWAPNA FRAGA MD DR: GIULIANA/harry JOB#: [id number] / [id number]
--- NOTE | 2016-09-10 16:39 | RAD ---
Chest, 2 views, 09/10/2016: History: Respiratory failure, CHF, fall Comparison is made to yesterday's study. The heart is enlarged. There is extensive calcific plaquing of the aorta. Coronary artery calcifications and a stent are noted. The pulmonary vascularity is at the upper limits of normal. There is an unchanged moderate right lower chest opacity suggesting pleural fluid and underlying atelectasis/infiltrate. There is unchanged linear atelectasis or scarring in the left base. There is blunting of the posterior costophrenic angle on the left compatible with a trace amount of pleural fluid. The bony structures are demineralized. There are multiple lower thoracic and upper lumbar vertebral compression deformities with vertebroplasty changes at T11 and L3. A mild vertebral body compression fracture at T9 is new when compared to the 09/06/2016 CT study. There is a mild inferior endplate deformity at T10. IMPRESSION: 1. Cardiomegaly with vascular congestion. 2. Unchanged moderate-sized right pleural effusion with underlying atelectasis/infiltrate. 3. Mild T9 vertebral compression fracture which has developed since 09/06/2016.
[2016-09-10 18:34] VITALS: BP 109/58
--- NOTE | 2016-09-10 18:53 | PDOC ---
PULMONARY PROGRESS NOTES Subjective PAT AT TIMES SOA NO INCREASE COUGH Vitals Vital Signs Date Time Temp Pulse Resp B/P (MAP) Pulse Ox O2 Delivery O2 Flow Rate FiO2 09/10/16 18:34 98.3 64 22 109/58 (75) 92 Nasal Cannula 98.3 09/10/16 07:30 3.0 ROS: No Nausea, No Chest Pain, No Abdominal Pain, No Increase Cough General: Alert, No acute distress HEENT: Other (nc at perrl) Lungs: Crackles, Other (DECREASE BS RIGHT) Cardiovascular: S1, S2 Abdomen: Soft, Non-tender Neuro Exam: Alert Extremities: No Edema Skin: Warm Labs Laboratory Tests Test 09/08/16 21:09 09/09/16 04:00 09/09/16 12:44 09/09/16 16:54 Glucose (Fingerstick) 85 mg/dL (70-99) 117 mg/dL (70-99) 100 mg/dL (70-99) White Blood Count 9.5 x10^3/uL (4.0-11.0) Red Blood Count 4.81 x10^6/uL (3.50-5.40) Hemoglobin 11.1 g/dL (12.0-15.5) Hematocrit 36.8 % (36.0-47.0) Mean Corpuscular Volume 76 fL (79-100) Mean Corpuscular Hemoglobin 23 pg (25-35) Mean Corpuscular Hemoglobin Concent 30 g/dL (31-37) Red Cell Distribution Width 21.2 % (11.5-14.5) Platelet Count 130 x10^3/uL (140-400) Neutrophils (%) (Auto) 83 % (31-73) Lymphocytes (%) (Auto) 10 % (24-48) Monocytes (%) (Auto) 6 % (0-9) Eosinophils (%) (Auto) 1 % (0-3) Basophils (%) (Auto) 0 % (0-3) Neutrophils # (Auto) 7.9 x10^3uL (1.8-7.7) Lymphocytes # (Auto) 1.0 x10^3/uL (1.0-4.8) Monocytes # (Auto) 0.5 x10^3/uL (0.0-1.1) Eosinophils # (Auto) 0.1 x10^3/uL (0.0-0.7) Basophils # (Auto) 0.0 x10^3/uL (0.0-0.2) Sodium Level 144 mmol/L (136-145) Potassium Level 3.5 mmol/L (3.5-5.1) Chloride Level 106 mmol/L (98-107) Carbon Dioxide Level 30 mmol/L (21-32) Anion Gap 8 (6-14) Blood Urea Nitrogen 17 mg/dL (7-20) Creatinine 1.1 mg/dL (0.6-1.0) Estimated GFR (Cockcroft-Gault) 48.2 Glucose Level 82 mg/dL (70-99) Calcium Level 8.3 mg/dL (8.5-10.1) Test 09/09/16 20:34 09/10/16 06:40 09/10/16 07:53 09/10/16 11:47 Glucose (Fingerstick) 100 mg/dL (70-99) 96 mg/dL (70-99) 114 mg/dL (70-99) White Blood Count 13.5 x10^3/uL (4.0-11.0) Red Blood Count 5.07 x10^6/uL (3.50-5.40) Hemoglobin 11.3 g/dL (12.0-15.5) Hematocrit 38.2 % (36.0-47.0) Mean Corpuscular Volume 77 fL (79-100) Mean Corpuscular Hemoglobin 22 pg (25-35) Mean Corpuscular Hemoglobin Concent 29 g/dL (31-37) Red Cell Distribution Width 21.2 % (11.5-14.5) Platelet Count 110 x10^3/uL (140-400) Neutrophils (%) (Auto) 89 % (31-73) Lymphocytes (%) (Auto) 6 % (24-48) Monocytes (%) (Auto) 5 % (0-9) Eosinophils (%) (Auto) 0 % (0-3) Basophils (%) (Auto) 0 % (0-3) Neutrophils # (Auto) 12.0 x10^3uL (1.8-7.7) Lymphocytes # (Auto) 0.8 x10^3/uL (1.0-4.8) Monocytes # (Auto) 0.7 x10^3/uL (0.0-1.1) Eosinophils # (Auto) 0.0 x10^3/uL (0.0-0.7) Basophils # (Auto) 0.0 x10^3/uL (0.0-0.2) Sodium Level 143 mmol/L (136-145) Potassium Level 3.6 mmol/L (3.5-5.1) Chloride Level 104 mmol/L (98-107) Carbon Dioxide Level 31 mmol/L (21-32) Anion Gap 8 (6-14) Blood Urea Nitrogen 11 mg/dL (7-20) Creatinine 0.9 mg/dL (0.6-1.0) Estimated GFR (Cockcroft-Gault) 60.7 Glucose Level 107 mg/dL (70-99) Calcium Level 9.2 mg/dL (8.5-10.1) Magnesium Level 2.2 mg/dL (1.8-2.4) Test 09/10/16 16:56 Glucose (Fingerstick) 142 mg/dL (70-99) Laboratory Tests Test 09/09/16 20:34 09/10/16 06:40 09/10/16 07:53 09/10/16 11:47 Glucose (Fingerstick) 100 mg/dL (70-99) 96 mg/dL (70-99) 114 mg/dL (70-99) White Blood Count 13.5 x10^3/uL (4.0-11.0) Red Blood Count 5.07 x10^6/uL (3.50-5.40) Hemoglobin 11.3 g/dL (12.0-15.5) Hematocrit 38.2 % (36.0-47.0) Mean Corpuscular Volume 77 fL (79-100) Mean Corpuscular Hemoglobin 22 pg (25-35) Mean Corpuscular Hemoglobin Concent 29 g/dL (31-37) Red Cell Distribution Width 21.2 % (11.5-14.5) Platelet Count 110 x10^3/uL (140-400) Neutrophils (%) (Auto) 89 % (31-73) Lymphocytes (%) (Auto) 6 % (24-48) Monocytes (%) (Auto) 5 % (0-9) Eosinophils (%) (Auto) 0 % (0-3) Basophils (%) (Auto) 0 % (0-3) Neutrophils # (Auto) 12.0 x10^3uL (1.8-7.7) Lymphocytes # (Auto) 0.8 x10^3/uL (1.0-4.8) Monocytes # (Auto) 0.7 x10^3/uL (0.0-1.1) Eosinophils # (Auto) 0.0 x10^3/uL (0.0-0.7) Basophils # (Auto) 0.0 x10^3/uL (0.0-0.2) Sodium Level 143 mmol/L (136-145) Potassium Level 3.6 mmol/L (3.5-5.1) Chloride Level 104 mmol/L (98-107) Carbon Dioxide Level 31 mmol/L (21-32) Anion Gap 8 (6-14) Blood Urea Nitrogen 11 mg/dL (7-20) Creatinine 0.9 mg/dL (0.6-1.0) Estimated GFR (Cockcroft-Gault) 60.7 Glucose Level 107 mg/dL (70-99) Calcium Level 9.2 mg/dL (8.5-10.1) Magnesium Level 2.2 mg/dL (1.8-2.4) Test 09/10/16 16:56 Glucose (Fingerstick) 142 mg/dL (70-99) Medications Active Scripts Medications Dose Route/Sig Max Daily Dose Days Date Category Lorazepam 0.5 Mg Tablet 0.5 Mg PO TID 09/06/16 Reported Furosemide 80 Mg Tablet 1 Tab PO BID 30 08/18/16 Rx Amaryl (Glimepiride) 2 Mg Tablet 1 Mg PO DAILY 30 08/18/16 Rx Klor-Con M20 (Potassium Chloride) 20 Meq Tab.er.prt 20 Meq PO TIDWMEALS 30 07/18/16 Rx Sertraline Hcl 50 Mg Tablet 50 Mg PO DAILY 30 07/18/16 Rx Spiriva (Tiotropium [place]) 18 Mcg Cap.w.dev 1 Cap IH DAILY 09/27/15 Rx Pradaxa (Dabigatran Etexilate Mesylate) 150 Mg Capsule 150 Mg PO BID 09/27/15 Rx Protonix (Pantoprazole Sodium) 40 Mg Tablet.dr 1 Tab PO DAILYAC 04/18/15 Reported NITROGLYCERIN SubLingual (Nitroglycerin) 0.4 Mg Tab.subl 0.4 Mg SL PRN Q5MIN PRN 04/18/15 Reported Metoprolol Tartrate 25 Mg Tablet 1 Tab PO DAILY 04/18/15 Reported Lipitor (Atorvastatin Calcium) 20 Mg Tablet 20 Mg PO HS 04/18/15 Reported Albuterol Sulfate Neb Soln (Albuterol Sulfate) 2.5 Mg/3 Ml Vial.neb 1 Vial NEB PRN Q4HRS PRN 04/18/15 Reported Digoxin 125 Mcg Tablet 1 Tab PO DAILY 04/10/15 Reported Comments CXR REVIEW INCREASING FLUID Impression . 1. Acute on chronic respiratory failure. 2. Abnormal cxr 3. Leukocytosis. 4. Acute exacerbation of chronic obstructive pulmonary disease. 5. Acute on chronic diastolic heart failure. 6. Coronary artery disease. 7. Chronic atrial fibrillation. 8. Elevated troponin. 9. Hypertension. Plan . thoracentesis in am spoke with IR antibx PRN Bipap GAYLE Boyer MD Sep 10, 2016 18:53
[2016-09-10] MEDS: ATORVASTATIN CALCIUM 20 MG TABLET PO SCH (20:50)
[2016-09-10 22:25] VITALS: BP 147/66
[2016-09-11] VITALS (7 sets, daily range): BP systolic 104–173; BP diastolic 61–86
[2016-09-11] MEDS: PIPERACILLIN/TAZOBACTAM 2.25 GM in IV NORMAL SALINE 50ML 50 ML IV SCH ×3 (00:02→14:12)
[2016-09-11 05:12] LABS: BASO % 0 % (0-3); EOS % 1 % (0-3); HEMATOCRIT 37.4 % (36.0-47.0); HEMOGLOBIN 10.9 g/dL (12.0-15.5); LYMPH # 0.8 x10^3/uL (1.0-4.8); LYMPH % 7 % (24-48); MEAN CORPUSCULAR HEMOGLOBIN 23 pg (25-35); MEAN CORPUSCULAR HGB CONC 29 g/dL (31-37); MEAN CORPUSCULAR VOLUME 77 fL (79-100); MONO % 6 % (0-9); NEUT % 86 % (31-73); PLATELET COUNT 97 x10^3/uL (140-400); RED BLOOD COUNT 4.83 x10^6/uL (3.50-5.40); WHITE BLOOD COUNT 11.1 x10^3/uL (4.0-11.0)
[2016-09-11 05:44] LABS: CALCIUM 9.4 mg/dL (8.5-10.1); CREATININE 0.9 mg/dL (0.6-1.0); GFR 60.7; POTASSIUM 3.6 mmol/L (3.5-5.1)
[2016-09-11] MEDS: INSULIN ASPART 300 UNITS/3 ML INSULN.PEN SQ SCH ×3 (08:00→17:00)
[2016-09-11] MEDS ORDERED: LIDOCAINE 1% / SOD BICARB 8.4% 20 ML VIAL. IJ ONE ×2 (08:25→09:00)
[2016-09-11] MEDS: FUROSEMIDE 40 MG TABLET. PO SCH ×2 (09:12→17:41)
[2016-09-11] MEDS: SERTRALINE 50 MG TABLET. PO SCH (09:12)
[2016-09-11] MEDS: DIGOXIN 125 MCG TABLET. PO SCH (09:12)
[2016-09-11] MEDS: METOPROLOL SUCC 24HR ER 25 MG TAB.ER.24H. PO SCH (09:12)
[2016-09-11] MEDS: PANTOPRAZOLE 40 MG TABLET.DR. PO SCH (09:12)
[2016-09-11] MEDS: POTASSIUM CHLORIDE 20 MEQ TABLET.ER. PO SCH ×3 (09:15→17:42)
--- NOTE | 2016-09-11 10:28 | PDOC ---
Infectious Disease Note Subjective Subjective Feeling reagan good Less cough, denies SOA, CP or wheezing ROS ROS GEN: Denies fevers, chills, sweats CV: Denies chest pain GI: Denies n/v/d Vital Sign Vital Signs Vital Signs Date Time Temp Pulse Resp B/P (MAP) Pulse Ox O2 Delivery O2 Flow Rate FiO2 09/11/16 09:12 87 141/74 09/11/16 07:30 Nasal Cannula 3.0 09/11/16 07:00 97.8 20 91 97.8 Physical Exam PHYSICAL EXAM GENERAL: Sleeping, arouses easily to name. 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 appropriately SKIN: No rash IV: ok Labs Lab Laboratory Tests Test 09/10/16 11:47 09/10/16 16:56 09/10/16 20:49 09/11/16 04:20 Glucose (Fingerstick) 114 mg/dL (70-99) 142 mg/dL (70-99) 120 mg/dL (70-99) White Blood Count 11.1 x10^3/uL (4.0-11.0) Red Blood Count 4.83 x10^6/uL (3.50-5.40) Hemoglobin 10.9 g/dL (12.0-15.5) Hematocrit 37.4 % (36.0-47.0) Mean Corpuscular Volume 77 fL (79-100) Mean Corpuscular Hemoglobin 23 pg (25-35) Mean Corpuscular Hemoglobin Concent 29 g/dL (31-37) Red Cell Distribution Width 21.0 % (11.5-14.5) Platelet Count 97 x10^3/uL (140-400) Neutrophils (%) (Auto) 86 % (31-73) Lymphocytes (%) (Auto) 7 % (24-48) Monocytes (%) (Auto) 6 % (0-9) Eosinophils (%) (Auto) 1 % (0-3) Basophils (%) (Auto) 0 % (0-3) Neutrophils # (Auto) 9.4 x10^3uL (1.8-7.7) Lymphocytes # (Auto) 0.8 x10^3/uL (1.0-4.8) Monocytes # (Auto) 0.7 x10^3/uL (0.0-1.1) Eosinophils # (Auto) 0.1 x10^3/uL (0.0-0.7) Basophils # (Auto) 0.0 x10^3/uL (0.0-0.2) Sodium Level 145 mmol/L (136-145) Potassium Level 3.6 mmol/L (3.5-5.1) Chloride Level 106 mmol/L (98-107) Carbon Dioxide Level 33 mmol/L (21-32) Anion Gap 6 (6-14) Blood Urea Nitrogen 10 mg/dL (7-20) Creatinine 0.9 mg/dL (0.6-1.0) Estimated GFR (Cockcroft-Gault) 60.7 Glucose Level 111 mg/dL (70-99) Calcium Level 9.4 mg/dL (8.5-10.1) Test 09/11/16 08:09 Glucose (Fingerstick) 112 mg/dL (70-99) Objective Assessment Acute respiratory failure, better Encephalopathy, better Leukocytosis, better Pulmonary infiltrate A fib CHF Pleural effusion MRSA screen positive Plan Plan of Care Zosyn (abx started 09/06) Dose steroids, 09/06 f/u pleural fluid cultures Supportive care Attending Co-Sign The patient was seen and interviewed as well as examined at the bedside. The chart was reviewed. The case was discussed. Agree with the plan of care. SOFIE KAY APRN Sep 11, 2016 10:28 SWAPNA FRAGA MD Sep 11, 2016 14:46
--- NOTE | 2016-09-11 10:41 | PDOC ---
PROGRESS NOTES Subjective Subjective feels better. had right sided thoracentesis with removal of 1.2 liters. not short of breath. lab reviewed. blood sugars are okay. Objective Objective Vital Signs Date Time Temp Pulse Resp B/P (MAP) Pulse Ox O2 Delivery O2 Flow Rate FiO2 09/11/16 09:12 87 141/74 09/11/16 07:30 Nasal Cannula 3.0 09/11/16 07:00 97.8 20 91 97.8 Intake and Output 09/11/16 06:59 Intake Total 450 ml Output Total 900 ml Balance -450 ml IV Total 450 ml Output Urine Total 900 ml # Bowel Movements 1 Physical Exam Abdomen: Soft Heart: Normal S1, Normal S2 Extremities: No edema General: Alert HEENT: Atraumatic Lungs: Other (clear anteriorly) Neuro: Normal speech Psych/Mental Status: Mood NL Skin: No rashes Assessment Assessment Problems increased right pleural effusion/ right thoracentesis with removal of 1.2 liters 09/11/16 acute diastolic chf compensated on chronic diastolic chf persistent atrial fibrillation. treated with pradaxa diabetes mellitus type 2 treated with diet COPD acute on chronic hypoxic respiratory failure Medical Problems: (1) Acute and chronic respiratory failure Status: Acute (2) CHF exacerbation Status: Acute (3) COPD exacerbation Status: Acute Plan Plan of Care await pleural fluid analysis PT and OT labs tomorrow anticipate dismissal tomorrow Comment Review of Relevant I have reviewed the following items nikita (where applicable) has been applied. Labs Laboratory Tests Test 09/09/16 12:44 09/09/16 16:54 09/09/16 20:34 09/10/16 06:40 Glucose (Fingerstick) 117 mg/dL (70-99) 100 mg/dL (70-99) 100 mg/dL (70-99) White Blood Count 13.5 x10^3/uL (4.0-11.0) Red Blood Count 5.07 x10^6/uL (3.50-5.40) Hemoglobin 11.3 g/dL (12.0-15.5) Hematocrit 38.2 % (36.0-47.0) Mean Corpuscular Volume 77 fL (79-100) Mean Corpuscular Hemoglobin 22 pg (25-35) Mean Corpuscular Hemoglobin Concent 29 g/dL (31-37) Red Cell Distribution Width 21.2 % (11.5-14.5) Platelet Count 110 x10^3/uL (140-400) Neutrophils (%) (Auto) 89 % (31-73) Lymphocytes (%) (Auto) 6 % (24-48) Monocytes (%) (Auto) 5 % (0-9) Eosinophils (%) (Auto) 0 % (0-3) Basophils (%) (Auto) 0 % (0-3) Neutrophils # (Auto) 12.0 x10^3uL (1.8-7.7) Lymphocytes # (Auto) 0.8 x10^3/uL (1.0-4.8) Monocytes # (Auto) 0.7 x10^3/uL (0.0-1.1) Eosinophils # (Auto) 0.0 x10^3/uL (0.0-0.7) Basophils # (Auto) 0.0 x10^3/uL (0.0-0.2) Sodium Level 143 mmol/L (136-145) Potassium Level 3.6 mmol/L (3.5-5.1) Chloride Level 104 mmol/L (98-107) Carbon Dioxide Level 31 mmol/L (21-32) Anion Gap 8 (6-14) Blood Urea Nitrogen 11 mg/dL (7-20) Creatinine 0.9 mg/dL (0.6-1.0) Estimated GFR (Cockcroft-Gault) 60.7 Glucose Level 107 mg/dL (70-99) Calcium Level 9.2 mg/dL (8.5-10.1) Magnesium Level 2.2 mg/dL (1.8-2.4) Test 09/10/16 07:53 09/10/16 11:47 09/10/16 16:56 09/10/16 20:49 Glucose (Fingerstick) 96 mg/dL (70-99) 114 mg/dL (70-99) 142 mg/dL (70-99) 120 mg/dL (70-99) Test 09/11/16 04:20 09/11/16 08:09 White Blood Count 11.1 x10^3/uL (4.0-11.0) Red Blood Count 4.83 x10^6/uL (3.50-5.40) Hemoglobin 10.9 g/dL (12.0-15.5) Hematocrit 37.4 % (36.0-47.0) Mean Corpuscular Volume 77 fL (79-100) Mean Corpuscular Hemoglobin 23 pg (25-35) Mean Corpuscular Hemoglobin Concent 29 g/dL (31-37) Red Cell Distribution Width 21.0 % (11.5-14.5) Platelet Count 97 x10^3/uL (140-400) Neutrophils (%) (Auto) 86 % (31-73) Lymphocytes (%) (Auto) 7 % (24-48) Monocytes (%) (Auto) 6 % (0-9) Eosinophils (%) (Auto) 1 % (0-3) Basophils (%) (Auto) 0 % (0-3) Neutrophils # (Auto) 9.4 x10^3uL (1.8-7.7) Lymphocytes # (Auto) 0.8 x10^3/uL (1.0-4.8) Monocytes # (Auto) 0.7 x10^3/uL (0.0-1.1) Eosinophils # (Auto) 0.1 x10^3/uL (0.0-0.7) Basophils # (Auto) 0.0 x10^3/uL (0.0-0.2) Sodium Level 145 mmol/L (136-145) Potassium Level 3.6 mmol/L (3.5-5.1) Chloride Level 106 mmol/L (98-107) Carbon Dioxide Level 33 mmol/L (21-32) Anion Gap 6 (6-14) Blood Urea Nitrogen 10 mg/dL (7-20) Creatinine 0.9 mg/dL (0.6-1.0) Estimated GFR (Cockcroft-Gault) 60.7 Glucose Level 111 mg/dL (70-99) Calcium Level 9.4 mg/dL (8.5-10.1) Glucose (Fingerstick) 112 mg/dL (70-99) Laboratory Tests Test 09/10/16 11:47 09/10/16 16:56 09/10/16 20:49 09/11/16 04:20 Glucose (Fingerstick) 114 mg/dL (70-99) 142 mg/dL (70-99) 120 mg/dL (70-99) White Blood Count 11.1 x10^3/uL (4.0-11.0) Red Blood Count 4.83 x10^6/uL (3.50-5.40) Hemoglobin 10.9 g/dL (12.0-15.5) Hematocrit 37.4 % (36.0-47.0) Mean Corpuscular Volume 77 fL (79-100) Mean Corpuscular Hemoglobin 23 pg (25-35) Mean Corpuscular Hemoglobin Concent 29 g/dL (31-37) Red Cell Distribution Width 21.0 % (11.5-14.5) Platelet Count 97 x10^3/uL (140-400) Neutrophils (%) (Auto) 86 % (31-73) Lymphocytes (%) (Auto) 7 % (24-48) Monocytes (%) (Auto) 6 % (0-9) Eosinophils (%) (Auto) 1 % (0-3) Basophils (%) (Auto) 0 % (0-3) Neutrophils # (Auto) 9.4 x10^3uL (1.8-7.7) Lymphocytes # (Auto) 0.8 x10^3/uL (1.0-4.8) Monocytes # (Auto) 0.7 x10^3/uL (0.0-1.1) Eosinophils # (Auto) 0.1 x10^3/uL (0.0-0.7) Basophils # (Auto) 0.0 x10^3/uL (0.0-0.2) Sodium Level 145 mmol/L (136-145) Potassium Level 3.6 mmol/L (3.5-5.1) Chloride Level 106 mmol/L (98-107) Carbon Dioxide Level 33 mmol/L (21-32) Anion Gap 6 (6-14) Blood Urea Nitrogen 10 mg/dL (7-20) Creatinine 0.9 mg/dL (0.6-1.0) Estimated GFR (Cockcroft-Gault) 60.7 Glucose Level 111 mg/dL (70-99) Calcium Level 9.4 mg/dL (8.5-10.1) Test 09/11/16 08:09 Glucose (Fingerstick) 112 mg/dL (70-99) Microbiology Medications Current Medications Albuterol/ Ipratropium (Duoneb) 3 ml 1X ONCE NEB Last administered on 10:56; Start 09/06/16 at 10:30; Stop 09/06/16 at 10:31; Status DC Albuterol Sulfate (Ventolin Neb Soln) 7.5 mg 1X ONCE CONT NEB Last administered on 09/06/16 10:55; Start 09/06/16 at 10:45; Stop 09/06/16 at 10:46 ; Status DC Methylprednisolone Sodium Succinate (SOLU-Medrol 125MG VIAL) 125 mg 1X ONCE IV Last administered on 09/06/16 11:06; Start 09/06/16 at 11:15; Stop 09/06/16 at 11:16; Status DC Sodium Chloride 1,000 ml @ 1,000 mls/hr 1X ONCE IV ; Start 09/06/16 at 11:00; Stop 09/06/16 at 11:00; Status DC Vancomycin HCl (Vanco Per Pharmacy) 1 each PRN DAILY PRN MC SEE COMMENTS Last administered on 09/10/16 14:12; Start 09/06/16 at 11:15; Stop 09/10/16 at 15:19 ; Status DC Levofloxacin/ Dextrose (Levaquin Per Pharmacy) 1 each PRN DAILY PRN MC SEE COMMENTS; Start 09/06/16 at 11:15; Status UNV Piperacillin Sod/ Tazobactam Sod (Zosyn Per Pharmacy) 1 each PRN DAILY PRN MC SEE COMMENTS; Start 09/06/16 at 11:15; Status UNV Sodium Chloride 500 ml @ 500 mls/hr 1X ONCE IV Last administered on 11:23; Start 09/06/16 at 11:30; Stop 09/06/16 at 12:29; Status DC Vancomycin HCl 1.5 gm/Sodium Chloride 500 ml @ 250 mls/hr 1X ONCE IV Last administered on 09/06/16 12:13; Start 09/06/16 at 11:30; Stop 09/06/16 at 13:29 ; Status DC Levofloxacin/ Dextrose 150 ml @ 100 mls/hr Q48H IV Last administered on 13:14; Start 09/06/16 at 12:00; Stop 09/10/16 at 15:19; Status DC Piperacillin Sod/ Tazobactam Sod 2.25 gm/Sodium Chloride 50 ml @ 100 mls/hr Q6HRS IV Last administered on 09/11/16 06:09; Start 09/06/16 at 12:00 Furosemide (Lasix) 40 mg 1X ONCE IVP Last administered on 09/06/16 11:57; Start 09/06/16 at 12:00; Stop 09/06/16 at 12:01; Status DC Pantoprazole Sodium (Protonix) 40 mg DAILY PO Last administered on 09/11/16 09 :12; Start 09/07/16 at 09:00 Metoprolol Succinate (Toprol Xl) 25 mg DAILY PO Last administered on 09/11/16 09:12; Start 09/07/16 at 09:00 Digoxin (Lanoxin) 125 mcg DAILY PO Last administered on 09/11/16 09:12; Start 09/07/16 at 09:00 Furosemide (Lasix) 40 mg Q12HR IVP Last administered on 09/07/16 09:32; Start 09/06/16 at 21:00; Stop 09/07/16 at 11:01; Status DC Potassium Chloride (Klor-Con) 20 meq TIDWMEALS PO Last administered on 09:31; Start 09/06/16 at 14:00; Stop 09/07/16 at 11:08; Status DC Sertraline HCl (Zoloft) 50 mg DAILY PO Last administered on 09/11/16 09:12; Start 09/07/16 at 09:00 Atorvastatin Calcium (Lipitor) 20 mg QHS PO Last administered on 09/10/16 20: 50; Start 09/06/16 at 21:00 Dabigatran (Pradaxa) 75 mg BID PO Last administered on 09/08/16 08:43; Start 09/06/16 at 21:00; Stop 09/08/16 at 09:42; Status DC Albuterol Sulfate (Ventolin Neb Soln) 2.5 mg PRN Q4HRS PRN NEB WHEEZING; Start 09/06/16 at 13:15 Lorazepam (Ativan) 0.5 mg PRN Q8HRS PRN PO ANXIETY / AGITATION Last administered on 09/10/16 22:29; Start 09/06/16 at 13:00 Acetaminophen (Tylenol) 325 mg Q4HRS PRN PO MILD PAIN / TEMP Last administered on 09/09/16 12:56; Start 09/06/16 at 13:00; Stop 09/10/16 at 14:02; Status DC Insulin Aspart (NovoLOG) 0-6 UNITS TIDWMEALS SQ ; Start 09/06/16 at 17:00 Info (Anti-Coagulation Monitoring By Pharmacy) 1 each PRN DAILY PRN MC SEE COMMENTS Last administered on 09/10/16 14:13; Start 09/06/16 at 13:15 Vancomycin HCl 1 gm/Sodium Chloride 250 ml @ 250 mls/hr Q24H IV Last administered on 09/07/16 12:15; Start 09/07/16 at 12:00; Stop 09/08/16 at 13:01 ; Status DC Vancomycin HCl 1 each 1X ONCE MC ; Start 09/08/16 at 11:30; Stop 09/08/16 at 11 :31; Status DC Furosemide (Lasix) 40 mg BID PO ; Start 09/07/16 at 21:00; Stop 09/07/16 at 21: 00; Status DC Potassium Chloride (Klor-Con) 20 meq BIDWMEALS PO Last administered on 09:21; Start 09/07/16 at 17:00; Stop 09/09/16 at 09:41; Status DC Furosemide (Lasix) 40 mg [id number] PO ; Start 09/07/16 at 14:00; Stop 09/07/16 at 14 :00; Status DC Furosemide (Lasix) 40 mg [id number] PO Last administered on 09/11/16 09:12; Start 09/07/16 at 16:00 Dabigatran (Pradaxa) 150 mg BID PO Last administered on 09/09/16 20:35; Start 09/08/16 at 21:00 Vancomycin HCl 1.25 gm/Sodium Chloride 250 ml @ 167 mls/hr Q24H IV ; Start at 13:30; Status Cancel Vancomycin HCl 750 mg/Sodium Chloride 250 ml @ 250 mls/hr Q12H IV Last administered on 09/10/16 14:25; Start 09/08/16 at 13:30; Stop 09/10/16 at 15:19 ; Status DC Potassium Chloride (Klor-Con) 20 meq TIDWMEALS PO Last administered on 09:15; Start 09/09/16 at 12:00 Ondansetron HCl (Zofran Odt) 4 mg PRN Q6HRS PRN PO NAUSEA/VOMITING; Start 09/09 at 10:00 Acetaminophen (Tylenol) 325 mg PRN Q4HRS PRN PO MILD PAIN / TEMP; Start at 14:15 Lidocaine/Sodium Bicarbonate (Buffered Lidocaine 1%) 20 ml STK-MED ONCE IJ ; Start 09/11/16 at 08:25; Stop 09/11/16 at 08:26; Status DC Lidocaine/Sodium Bicarbonate (Buffered Lidocaine 1%) 3 ml 1X ONCE IJ Last administered on 09/11/16 08:49; Start 09/11/16 at 09:00; Stop 09/11/16 at 09:01 ; Status DC Active Scripts Active Furosemide 80 Mg Tablet 1 Tab PO BID 30 Days Amaryl (Glimepiride) 2 Mg Tablet 1 Mg PO DAILY 30 Days Klor-Con M20 (Potassium Chloride) 20 Meq Tab.er.prt 20 Meq PO TIDWMEALS 30 Days Sertraline Hcl 50 Mg Tablet 50 Mg PO DAILY 30 Days Spiriva (Tiotropium [place]) 18 Mcg Cap.w.dev 1 Cap IH DAILY Pradaxa (Dabigatran Etexilate Mesylate) 150 Mg Capsule 150 Mg PO BID Reported Lorazepam 0.5 Mg Tablet 0.5 Mg PO TID Protonix (Pantoprazole Sodium) 40 Mg Tablet.dr 1 Tab PO DAILYAC NITROGLYCERIN SubLingual (Nitroglycerin) 0.4 Mg Tab.subl 0.4 Mg SL PRN Q5MIN PRN Metoprolol Tartrate 25 Mg Tablet 1 Tab PO DAILY Lipitor (Atorvastatin Calcium) 20 Mg Tablet 20 Mg PO HS Albuterol Sulfate Neb Soln (Albuterol Sulfate) 2.5 Mg/3 Ml Vial.neb 1 Vial NEB PRN Q4HRS PRN Digoxin 125 Mcg Tablet 1 Tab PO DAILY Vitals/I & O Vital Sign - Last 24 Hours 09/10/16 09/10/16 09/10/16 09/10/16 11:00 15:00 18:34 19:15 Temp 97.9 97.7 98.3 97.9 97.7 98.3 Pulse 69 68 64 Resp 22 22 22 B/P (MAP) 147/73 (97) 107/70 (82) 109/58 (75) Pulse Ox 95 94 92 O2 Delivery Nasal Cannula Nasal Cannula Nasal Cannula O2 Flow Rate 3.0 09/10/16 09/11/16 09/11/16 09/11/16 22:25 03:31 03:42 07:00 Temp 97.6 97.6 97.8 97.6 97.6 97.8 Pulse 71 81 79 87 Resp 18 20 20 B/P (MAP) 147/66 (93) 173/86 (115) 159/65 (96) 141/74 (96) Pulse Ox 91 93 91 O2 Delivery Nasal Cannula Nasal Cannula Nasal Cannula O2 Flow Rate 3.0 3.0 09/11/16 09/11/16 09/11/16 07:30 09:12 09:12 Pulse 87 87 B/P (MAP) 141/74 141/74 O2 Delivery Nasal Cannula O2 Flow Rate 3.0 Intake and Output 09/10/16 09/10/16 09/11/16 14:59 22:59 06:59 Intake Total 200 ml 250 ml Output Total 700 ml 200 ml Balance 200 ml -450 ml -200 ml MOR MALCOLM MD Sep 11, 2016 10:41
--- NOTE | 2016-09-11 10:44 | RAD ---
Thoracentesis 09/11/2016 Indication: Right pleural effusion Comparison study: Chest radiograph September 10, 2016 Technique: The risks and benefits of the procedure were discussed patient. Informed consent was obtained. Ultrasound evaluation of the right chest was performed demonstrating a large pleural effusion. The right posterior chest was prepped and draped using maximal sterile barrier technique. 1% lidocaine without epinephrine was administered to the skin and subcutaneous tissues. Under direct ultrasound guidance a 5 Nep[place] sheath needle was advanced into the pleural space. Serous fluid was aspirated and the catheter connected to suction. Approximately 1.2 L of serous pleural fluid was aspirated. The catheter was removed and manual pressure held. Sterile dressing was applied. No immediate complications were identified. Impression: Successful ultrasound-guided thoracentesis
[2016-09-11 11:59] LABS: BF CLARITY HAZY; BF COLOR YELLOW
[2016-09-11] MEDS: DABIGATRAN ETEXILATE 150 MG CAPSULE. PO SCH ×2 (14:11→22:01)
--- NOTE | 2016-09-11 16:03 | PDOC ---
PULMONARY PROGRESS NOTES Subjective FEELS BETTER AFTER THORACENTESIS Vitals Vital Signs Date Time Temp Pulse Resp B/P (MAP) Pulse Ox O2 Delivery O2 Flow Rate FiO2 09/11/16 15:00 97.6 76 20 104/61 (75) 86 Room Air 97.6 09/11/16 07:30 3.0 ROS: No Nausea, No Chest Pain, No Abdominal Pain, No Increase Cough General: Alert, No acute distress HEENT: Other (nc at perrl) Lungs: Crackles, Other (DECREASE BS RIGHT) Cardiovascular: S1, S2 Abdomen: Soft, Non-tender Neuro Exam: Alert Extremities: No Edema Skin: Warm Labs Laboratory Tests Test 09/09/16 16:54 09/09/16 20:34 09/10/16 06:40 09/10/16 07:53 Glucose (Fingerstick) 100 mg/dL (70-99) 100 mg/dL (70-99) 96 mg/dL (70-99) White Blood Count 13.5 x10^3/uL (4.0-11.0) Red Blood Count 5.07 x10^6/uL (3.50-5.40) Hemoglobin 11.3 g/dL (12.0-15.5) Hematocrit 38.2 % (36.0-47.0) Mean Corpuscular Volume 77 fL (79-100) Mean Corpuscular Hemoglobin 22 pg (25-35) Mean Corpuscular Hemoglobin Concent 29 g/dL (31-37) Red Cell Distribution Width 21.2 % (11.5-14.5) Platelet Count 110 x10^3/uL (140-400) Neutrophils (%) (Auto) 89 % (31-73) Lymphocytes (%) (Auto) 6 % (24-48) Monocytes (%) (Auto) 5 % (0-9) Eosinophils (%) (Auto) 0 % (0-3) Basophils (%) (Auto) 0 % (0-3) Neutrophils # (Auto) 12.0 x10^3uL (1.8-7.7) Lymphocytes # (Auto) 0.8 x10^3/uL (1.0-4.8) Monocytes # (Auto) 0.7 x10^3/uL (0.0-1.1) Eosinophils # (Auto) 0.0 x10^3/uL (0.0-0.7) Basophils # (Auto) 0.0 x10^3/uL (0.0-0.2) Sodium Level 143 mmol/L (136-145) Potassium Level 3.6 mmol/L (3.5-5.1) Chloride Level 104 mmol/L (98-107) Carbon Dioxide Level 31 mmol/L (21-32) Anion Gap 8 (6-14) Blood Urea Nitrogen 11 mg/dL (7-20) Creatinine 0.9 mg/dL (0.6-1.0) Estimated GFR (Cockcroft-Gault) 60.7 Glucose Level 107 mg/dL (70-99) Calcium Level 9.2 mg/dL (8.5-10.1) Magnesium Level 2.2 mg/dL (1.8-2.4) Test 09/10/16 11:47 09/10/16 16:56 09/10/16 20:49 09/11/16 04:20 Glucose (Fingerstick) 114 mg/dL (70-99) 142 mg/dL (70-99) 120 mg/dL (70-99) White Blood Count 11.1 x10^3/uL (4.0-11.0) Red Blood Count 4.83 x10^6/uL (3.50-5.40) Hemoglobin 10.9 g/dL (12.0-15.5) Hematocrit 37.4 % (36.0-47.0) Mean Corpuscular Volume 77 fL (79-100) Mean Corpuscular Hemoglobin 23 pg (25-35) Mean Corpuscular Hemoglobin Concent 29 g/dL (31-37) Red Cell Distribution Width 21.0 % (11.5-14.5) Platelet Count 97 x10^3/uL (140-400) Neutrophils (%) (Auto) 86 % (31-73) Lymphocytes (%) (Auto) 7 % (24-48) Monocytes (%) (Auto) 6 % (0-9) Eosinophils (%) (Auto) 1 % (0-3) Basophils (%) (Auto) 0 % (0-3) Neutrophils # (Auto) 9.4 x10^3uL (1.8-7.7) Lymphocytes # (Auto) 0.8 x10^3/uL (1.0-4.8) Monocytes # (Auto) 0.7 x10^3/uL (0.0-1.1) Eosinophils # (Auto) 0.1 x10^3/uL (0.0-0.7) Basophils # (Auto) 0.0 x10^3/uL (0.0-0.2) Sodium Level 145 mmol/L (136-145) Potassium Level 3.6 mmol/L (3.5-5.1) Chloride Level 106 mmol/L (98-107) Carbon Dioxide Level 33 mmol/L (21-32) Anion Gap 6 (6-14) Blood Urea Nitrogen 10 mg/dL (7-20) Creatinine 0.9 mg/dL (0.6-1.0) Estimated GFR (Cockcroft-Gault) 60.7 Glucose Level 111 mg/dL (70-99) Calcium Level 9.4 mg/dL (8.5-10.1) Test 09/11/16 08:09 09/11/16 09:00 09/11/16 11:52 Glucose (Fingerstick) 112 mg/dL (70-99) 130 mg/dL (70-99) Body Fluid Source Pleural Body Fluid Color Yellow Body Fluid Clarity Hazy Body Fluid pH 7.5 Body Fluid Nucleated Cells /cmm Body Fluid Mononuclear WBCs (%) 43 % Body Fluid Polymorphonuclear Cells 40 % Body Fluid Total RBCs Counted /cmm Body Fluid Other Cells (%) 17 % Laboratory Tests Test 09/10/16 16:56 09/10/16 20:49 09/11/16 04:20 09/11/16 08:09 Glucose (Fingerstick) 142 mg/dL (70-99) 120 mg/dL (70-99) 112 mg/dL (70-99) White Blood Count 11.1 x10^3/uL (4.0-11.0) Red Blood Count 4.83 x10^6/uL (3.50-5.40) Hemoglobin 10.9 g/dL (12.0-15.5) Hematocrit 37.4 % (36.0-47.0) Mean Corpuscular Volume 77 fL (79-100) Mean Corpuscular Hemoglobin 23 pg (25-35) Mean Corpuscular Hemoglobin Concent 29 g/dL (31-37) Red Cell Distribution Width 21.0 % (11.5-14.5) Platelet Count 97 x10^3/uL (140-400) Neutrophils (%) (Auto) 86 % (31-73) Lymphocytes (%) (Auto) 7 % (24-48) Monocytes (%) (Auto) 6 % (0-9) Eosinophils (%) (Auto) 1 % (0-3) Basophils (%) (Auto) 0 % (0-3) Neutrophils # (Auto) 9.4 x10^3uL (1.8-7.7) Lymphocytes # (Auto) 0.8 x10^3/uL (1.0-4.8) Monocytes # (Auto) 0.7 x10^3/uL (0.0-1.1) Eosinophils # (Auto) 0.1 x10^3/uL (0.0-0.7) Basophils # (Auto) 0.0 x10^3/uL (0.0-0.2) Sodium Level 145 mmol/L (136-145) Potassium Level 3.6 mmol/L (3.5-5.1) Chloride Level 106 mmol/L (98-107) Carbon Dioxide Level 33 mmol/L (21-32) Anion Gap 6 (6-14) Blood Urea Nitrogen 10 mg/dL (7-20) Creatinine 0.9 mg/dL (0.6-1.0) Estimated GFR (Cockcroft-Gault) 60.7 Glucose Level 111 mg/dL (70-99) Calcium Level 9.4 mg/dL (8.5-10.1) Test 09/11/16 09:00 09/11/16 11:52 Body Fluid Source Pleural Body Fluid Color Yellow Body Fluid Clarity Hazy Body Fluid pH 7.5 Body Fluid Nucleated Cells /cmm Body Fluid Mononuclear WBCs (%) 43 % Body Fluid Polymorphonuclear Cells 40 % Body Fluid Total RBCs Counted /cmm Body Fluid Other Cells (%) 17 % Glucose (Fingerstick) 130 mg/dL (70-99) Medications Active Scripts Medications Dose Route/Sig Max Daily Dose Days Date Category Lorazepam 0.5 Mg Tablet 0.5 Mg PO TID 09/06/16 Reported Furosemide 80 Mg Tablet 1 Tab PO BID 30 08/18/16 Rx Amaryl (Glimepiride) 2 Mg Tablet 1 Mg PO DAILY 30 08/18/16 Rx Klor-Con M20 (Potassium Chloride) 20 Meq Tab.er.prt 20 Meq PO TIDWMEALS 30 07/18/16 Rx Sertraline Hcl 50 Mg Tablet 50 Mg PO DAILY 30 07/18/16 Rx Spiriva (Tiotropium [place]) 18 Mcg Cap.w.dev 1 Cap IH DAILY 09/27/15 Rx Pradaxa (Dabigatran Etexilate Mesylate) 150 Mg Capsule 150 Mg PO BID 09/27/15 Rx Protonix (Pantoprazole Sodium) 40 Mg Tablet.dr 1 Tab PO DAILYAC 04/18/15 Reported NITROGLYCERIN SubLingual (Nitroglycerin) 0.4 Mg Tab.subl 0.4 Mg SL PRN Q5MIN PRN 04/18/15 Reported Metoprolol Tartrate 25 Mg Tablet 1 Tab PO DAILY 04/18/15 Reported Lipitor (Atorvastatin Calcium) 20 Mg Tablet 20 Mg PO HS 04/18/15 Reported Albuterol Sulfate Neb Soln (Albuterol Sulfate) 2.5 Mg/3 Ml Vial.neb 1 Vial NEB PRN Q4HRS PRN 04/18/15 Reported Digoxin 125 Mcg Tablet 1 Tab PO DAILY 04/10/15 Reported Comments CXR REVIEW INCREASING FLUID Impression . 1. Acute on chronic respiratory failure. 2. Abnormal cxr 3. Leukocytosis. 4. Acute exacerbation of chronic obstructive pulmonary disease. 5. Acute on chronic diastolic heart failure. 6. Coronary artery disease. 7. Chronic atrial fibrillation. 8. Elevated troponin. 9. Hypertension. Plan . D/C IN AM OK BY ME FOLLOW UP ON CYTOLOGY PRN SHEELAAP GAYLE VALDEZ MD Sep 11, 2016 16:03
[2016-09-11] MEDS: ATORVASTATIN CALCIUM 20 MG TABLET PO SCH (22:01)
[2016-09-11] MEDS: AMOXICILLIN/K CLAV 875/125MG TABLET. PO SCH (22:01)
[2016-09-11] MEDS: LORazepam 0.5 MG TABLET PO PRN (22:04)
[2016-09-12 03:25] VITALS: BP 129/75
[2016-09-12 04:47] LABS: CALCIUM 8.8 mg/dL (8.5-10.1); CREATININE 0.9 mg/dL (0.6-1.0); GFR 60.7; MAGNESIUM 2.2 mg/dL (1.8-2.4); POTASSIUM 3.5 mmol/L (3.5-5.1)
[2016-09-12 07:00] VITALS: BP 141/66
[2016-09-12] MEDS: INSULIN ASPART 300 UNITS/3 ML INSULN.PEN SQ SCH ×2 (08:00→12:00)
[2016-09-12] MEDS ORDERED: FUROSEMIDE 80 MG TABLET. PO SCH (09:00)
--- NOTE | 2016-09-12 09:25 | PDOC ---
PROGRESS NOTES Subjective Subjective feels well. alert and not short of breath. eating breakfast. lab reviewed. discussed with ID COMPLIANCE ADMINISTRATOR taking augmentin. pleural fluid cultures pending. Objective Objective Vital Signs Date Time Temp Pulse Resp B/P (MAP) Pulse Ox O2 Delivery O2 Flow Rate FiO2 09/12/16 08:00 Nasal Cannula 3.0 09/12/16 07:00 97.9 73 22 141/66 (91) 97 97.9 Intake and Output 09/12/16 07:00 Intake Total 500 ml Output Total 1500 ml Balance -1000 ml Intake Oral 450 ml IV Total 50 ml Output Urine Total 300 ml Other 1200 ml # Voids 1 # Bowel Movements 3 Physical Exam Abdomen: Soft Heart: Normal S1, Normal S2 Extremities: No edema General: Alert HEENT: Atraumatic Lungs: Other (decreased breath sounds bilaterally. few crackles and rhonchi left lung base) Neuro: Normal speech Psych/Mental Status: Mood NL Skin: No rashes Assessment Assessment Problems Medical Problems: right pleural effusion/ right thoracentesis with removal of 1.2 liters 09/11/16 acute diastolic chf compensated on chronic diastolic chf persistent atrial fibrillation. treated with pradaxa diabetes mellitus type 2 treated with diet COPD pneumonia acute on chronic hypoxic respiratory failure (1) Acute and chronic respiratory failure Status: Acute (2) CHF exacerbation Status: Acute (3) COPD exacerbation Status: Acute Plan Plan of Care increase furosemide to her home dose 80 mg po bid augmentin dismiss today Comment Review of Relevant I have reviewed the following items nikita (where applicable) has been applied. Labs Laboratory Tests Test 09/10/16 11:47 09/10/16 16:56 09/10/16 20:49 09/11/16 04:20 Glucose (Fingerstick) 114 mg/dL (70-99) 142 mg/dL (70-99) 120 mg/dL (70-99) White Blood Count 11.1 x10^3/uL (4.0-11.0) Red Blood Count 4.83 x10^6/uL (3.50-5.40) Hemoglobin 10.9 g/dL (12.0-15.5) Hematocrit 37.4 % (36.0-47.0) Mean Corpuscular Volume 77 fL (79-100) Mean Corpuscular Hemoglobin 23 pg (25-35) Mean Corpuscular Hemoglobin Concent 29 g/dL (31-37) Red Cell Distribution Width 21.0 % (11.5-14.5) Platelet Count 97 x10^3/uL (140-400) Neutrophils (%) (Auto) 86 % (31-73) Lymphocytes (%) (Auto) 7 % (24-48) Monocytes (%) (Auto) 6 % (0-9) Eosinophils (%) (Auto) 1 % (0-3) Basophils (%) (Auto) 0 % (0-3) Neutrophils # (Auto) 9.4 x10^3uL (1.8-7.7) Lymphocytes # (Auto) 0.8 x10^3/uL (1.0-4.8) Monocytes # (Auto) 0.7 x10^3/uL (0.0-1.1) Eosinophils # (Auto) 0.1 x10^3/uL (0.0-0.7) Basophils # (Auto) 0.0 x10^3/uL (0.0-0.2) Sodium Level 145 mmol/L (136-145) Potassium Level 3.6 mmol/L (3.5-5.1) Chloride Level 106 mmol/L (98-107) Carbon Dioxide Level 33 mmol/L (21-32) Anion Gap 6 (6-14) Blood Urea Nitrogen 10 mg/dL (7-20) Creatinine 0.9 mg/dL (0.6-1.0) Estimated GFR (Cockcroft-Gault) 60.7 Glucose Level 111 mg/dL (70-99) Calcium Level 9.4 mg/dL (8.5-10.1) Test 09/11/16 08:09 09/11/16 09:00 09/11/16 11:52 09/11/16 16:42 Glucose (Fingerstick) 112 mg/dL (70-99) 130 mg/dL (70-99) 110 mg/dL (70-99) Body Fluid Source Pleural Body Fluid Color Yellow Body Fluid Clarity Hazy Body Fluid pH 7.5 Body Fluid Nucleated Cells /cmm Body Fluid Mononuclear WBCs (%) 43 % Body Fluid Polymorphonuclear Cells 40 % Body Fluid Total RBCs Counted /cmm Body Fluid Other Cells (%) 17 % Test 09/11/16 20:47 09/12/16 03:00 09/12/16 07:34 Glucose (Fingerstick) 147 mg/dL (70-99) 108 mg/dL (70-99) Sodium Level 146 mmol/L (136-145) Potassium Level 3.5 mmol/L (3.5-5.1) Chloride Level 107 mmol/L (98-107) Carbon Dioxide Level 35 mmol/L (21-32) Anion Gap 4 (6-14) Blood Urea Nitrogen 12 mg/dL (7-20) Creatinine 0.9 mg/dL (0.6-1.0) Estimated GFR (Cockcroft-Gault) 60.7 Glucose Level 105 mg/dL (70-99) Calcium Level 8.8 mg/dL (8.5-10.1) Magnesium Level 2.2 mg/dL (1.8-2.4) Laboratory Tests Test 09/11/16 11:52 09/11/16 16:42 09/11/16 20:47 09/12/16 03:00 Glucose (Fingerstick) 130 mg/dL (70-99) 110 mg/dL (70-99) 147 mg/dL (70-99) Sodium Level 146 mmol/L (136-145) Potassium Level 3.5 mmol/L (3.5-5.1) Chloride Level 107 mmol/L (98-107) Carbon Dioxide Level 35 mmol/L (21-32) Anion Gap 4 (6-14) Blood Urea Nitrogen 12 mg/dL (7-20) Creatinine 0.9 mg/dL (0.6-1.0) Estimated GFR (Cockcroft-Gault) 60.7 Glucose Level 105 mg/dL (70-99) Calcium Level 8.8 mg/dL (8.5-10.1) Magnesium Level 2.2 mg/dL (1.8-2.4) Test 09/12/16 07:34 Glucose (Fingerstick) 108 mg/dL (70-99) Microbiology Medications Current Medications Albuterol/ Ipratropium (Duoneb) 3 ml 1X ONCE NEB Last administered on 10:56; Start 09/06/16 at 10:30; Stop 09/06/16 at 10:31; Status DC Albuterol Sulfate (Ventolin Neb Soln) 7.5 mg 1X ONCE CONT NEB Last administered on 09/06/16 10:55; Start 09/06/16 at 10:45; Stop 09/06/16 at 10:46 ; Status DC Methylprednisolone Sodium Succinate (SOLU-Medrol 125MG VIAL) 125 mg 1X ONCE IV Last administered on 09/06/16 11:06; Start 09/06/16 at 11:15; Stop 09/06/16 at 11:16; Status DC Sodium Chloride 1,000 ml @ 1,000 mls/hr 1X ONCE IV ; Start 09/06/16 at 11:00; Stop 09/06/16 at 11:00; Status DC Vancomycin HCl (Vanco Per Pharmacy) 1 each PRN DAILY PRN MC SEE COMMENTS Last administered on 09/10/16 14:12; Start 09/06/16 at 11:15; Stop 09/10/16 at 15:19 ; Status DC Levofloxacin/ Dextrose (Levaquin Per Pharmacy) 1 each PRN DAILY PRN MC SEE COMMENTS; Start 09/06/16 at 11:15; Status UNV Piperacillin Sod/ Tazobactam Sod (Zosyn Per Pharmacy) 1 each PRN DAILY PRN MC SEE COMMENTS; Start 09/06/16 at 11:15; Status UNV Sodium Chloride 500 ml @ 500 mls/hr 1X ONCE IV Last administered on 11:23; Start 09/06/16 at 11:30; Stop 09/06/16 at 12:29; Status DC Vancomycin HCl 1.5 gm/Sodium Chloride 500 ml @ 250 mls/hr 1X ONCE IV Last administered on 09/06/16 12:13; Start 09/06/16 at 11:30; Stop 09/06/16 at 13:29 ; Status DC Levofloxacin/ Dextrose 150 ml @ 100 mls/hr Q48H IV Last administered on 13:14; Start 09/06/16 at 12:00; Stop 09/10/16 at 15:19; Status DC Piperacillin Sod/ Tazobactam Sod 2.25 gm/Sodium Chloride 50 ml @ 100 mls/hr Q6HRS IV Last administered on 09/11/16 14:12; Start 09/06/16 at 12:00; Stop at 17:36; Status DC Furosemide (Lasix) 40 mg 1X ONCE IVP Last administered on 09/06/16 11:57; Start 09/06/16 at 12:00; Stop 09/06/16 at 12:01; Status DC Pantoprazole Sodium (Protonix) 40 mg DAILY PO Last administered on 09/11/16 09 :12; Start 09/07/16 at 09:00 Metoprolol Succinate (Toprol Xl) 25 mg DAILY PO Last administered on 09/11/16 09:12; Start 09/07/16 at 09:00 Digoxin (Lanoxin) 125 mcg DAILY PO Last administered on 09/11/16 09:12; Start 09/07/16 at 09:00 Furosemide (Lasix) 40 mg Q12HR IVP Last administered on 09/07/16 09:32; Start 09/06/16 at 21:00; Stop 09/07/16 at 11:01; Status DC Potassium Chloride (Klor-Con) 20 meq TIDWMEALS PO Last administered on 09:31; Start 09/06/16 at 14:00; Stop 09/07/16 at 11:08; Status DC Sertraline HCl (Zoloft) 50 mg DAILY PO Last administered on 09/11/16 09:12; Start 09/07/16 at 09:00 Atorvastatin Calcium (Lipitor) 20 mg QHS PO Last administered on 09/11/16 22: 01; Start 09/06/16 at 21:00 Dabigatran (Pradaxa) 75 mg BID PO Last administered on 09/08/16 08:43; Start 09/06/16 at 21:00; Stop 09/08/16 at 09:42; Status DC Albuterol Sulfate (Ventolin Neb Soln) 2.5 mg PRN Q4HRS PRN NEB WHEEZING Last administered on 09/12/16 04:42; Start 09/06/16 at 13:15 Lorazepam (Ativan) 0.5 mg PRN Q8HRS PRN PO ANXIETY / AGITATION Last administered on 09/11/16 22:04; Start 09/06/16 at 13:00 Acetaminophen (Tylenol) 325 mg Q4HRS PRN PO MILD PAIN / TEMP Last administered on 09/09/16 12:56; Start 09/06/16 at 13:00; Stop 09/10/16 at 14:02; Status DC Insulin Aspart (NovoLOG) 0-6 UNITS TIDWMEALS SQ ; Start 09/06/16 at 17:00 Info (Anti-Coagulation Monitoring By Pharmacy) 1 each PRN DAILY PRN MC SEE COMMENTS Last administered on 09/10/16 14:13; Start 09/06/16 at 13:15 Vancomycin HCl 1 gm/Sodium Chloride 250 ml @ 250 mls/hr Q24H IV Last administered on 09/07/16 12:15; Start 09/07/16 at 12:00; Stop 09/08/16 at 13:01 ; Status DC Vancomycin HCl 1 each 1X ONCE MC ; Start 09/08/16 at 11:30; Stop 09/08/16 at 11 :31; Status DC Furosemide (Lasix) 40 mg BID PO ; Start 09/07/16 at 21:00; Stop 09/07/16 at 21: 00; Status DC Potassium Chloride (Klor-Con) 20 meq BIDWMEALS PO Last administered on 09:21; Start 09/07/16 at 17:00; Stop 09/09/16 at 09:41; Status DC Furosemide (Lasix) 40 mg [id number] PO ; Start 09/07/16 at 14:00; Stop 09/07/16 at 14 :00; Status DC Furosemide (Lasix) 40 mg [id number] PO Last administered on 09/11/16 17:41; Start 09/07/16 at 16:00 Dabigatran (Pradaxa) 150 mg BID PO Last administered on 09/11/16 22:01; Start 09/08/16 at 21:00 Vancomycin HCl 1.25 gm/Sodium Chloride 250 ml @ 167 mls/hr Q24H IV ; Start at 13:30; Status Cancel Vancomycin HCl 750 mg/Sodium Chloride 250 ml @ 250 mls/hr Q12H IV Last administered on 09/10/16 14:25; Start 09/08/16 at 13:30; Stop 09/10/16 at 15:19 ; Status DC Potassium Chloride (Klor-Con) 20 meq TIDWMEALS PO Last administered on 17:42; Start 09/09/16 at 12:00 Ondansetron HCl (Zofran Odt) 4 mg PRN Q6HRS PRN PO NAUSEA/VOMITING; Start 09/09 at 10:00 Acetaminophen (Tylenol) 325 mg PRN Q4HRS PRN PO MILD PAIN / TEMP; Start at 14:15 Lidocaine/Sodium Bicarbonate (Buffered Lidocaine 1%) 20 ml STK-MED ONCE IJ ; Start 09/11/16 at 08:25; Stop 09/11/16 at 08:26; Status DC Lidocaine/Sodium Bicarbonate (Buffered Lidocaine 1%) 3 ml 1X ONCE IJ Last administered on 09/11/16 08:49; Start 09/11/16 at 09:00; Stop 09/11/16 at 09:01 ; Status DC Amoxicillin/ Clavulanate Potassium (Augmentin 875/ 125mg) 1 tab BID PO Last administered on 09/11/16 22:01; Start 09/11/16 at 21:00; Stop 09/18/16 at 09:01 Active Scripts Active Furosemide 80 Mg Tablet 1 Tab PO BID 30 Days Amaryl (Glimepiride) 2 Mg Tablet 1 Mg PO DAILY 30 Days Klor-Con M20 (Potassium Chloride) 20 Meq Tab.er.prt 20 Meq PO TIDWMEALS 30 Days Sertraline Hcl 50 Mg Tablet 50 Mg PO DAILY 30 Days Spiriva (Tiotropium [place]) 18 Mcg Cap.w.dev 1 Cap IH DAILY Pradaxa (Dabigatran Etexilate Mesylate) 150 Mg Capsule 150 Mg PO BID Reported Lorazepam 0.5 Mg Tablet 0.5 Mg PO TID Protonix (Pantoprazole Sodium) 40 Mg Tablet.dr 1 Tab PO DAILYAC NITROGLYCERIN SubLingual (Nitroglycerin) 0.4 Mg Tab.subl 0.4 Mg SL PRN Q5MIN PRN Metoprolol Tartrate 25 Mg Tablet 1 Tab PO DAILY Lipitor (Atorvastatin Calcium) 20 Mg Tablet 20 Mg PO HS Albuterol Sulfate Neb Soln (Albuterol Sulfate) 2.5 Mg/3 Ml Vial.neb 1 Vial NEB PRN Q4HRS PRN Digoxin 125 Mcg Tablet 1 Tab PO DAILY Vitals/I & O Vital Sign - Last 24 Hours 09/11/16 09/11/16 09/11/16 09/11/16 11:00 15:00 19:25 20:00 Temp 98.5 97.6 98.5 98.5 97.6 98.5 Pulse 72 76 69 Resp 24 20 17 B/P (MAP) 111/65 (80) 104/61 (75) 134/67 (89) Pulse Ox 88 86 96 O2 Delivery Room Air Room Air Nasal Cannula Nasal Cannula O2 Flow Rate 3.0 3.0 09/11/16 09/12/16 09/12/16 09/12/16 23:30 03:25 04:47 07:00 Temp 98.5 98.2 97.9 98.5 98.2 97.9 Pulse 60 78 73 Resp 18 18 22 B/P (MAP) 127/63 (84) 129/75 (93) 141/66 (91) Pulse Ox 97 96 93 97 O2 Delivery Nasal Cannula Nasal Cannula Nasal Cannula Venturi Mask O2 Flow Rate 3.0 3.0 3.0 9.0 09/12/16 08:00 O2 Delivery Nasal Cannula O2 Flow Rate 3.0 Intake and Output 09/11/16 09/11/16 09/12/16 15:00 23:00 07:00 Intake Total 50 ml 450 ml Output Total 1200 ml 300 ml Balance -1150 ml 150 ml MOR MALCOLM MD Sep 12, 2016 09:25
[2016-09-12] MEDS: AMOXICILLIN/K CLAV 875/125MG TABLET. PO SCH (09:33)
[2016-09-12] MEDS: PANTOPRAZOLE 40 MG TABLET.DR. PO SCH (09:34)
[2016-09-12] MEDS: POTASSIUM CHLORIDE 20 MEQ TABLET.ER. PO SCH ×2 (09:34→13:03)
[2016-09-12] MEDS: DABIGATRAN ETEXILATE 150 MG CAPSULE. PO SCH (09:34)
[2016-09-12] MEDS: DIGOXIN 125 MCG TABLET. PO SCH (09:34)
--- NOTE | 2016-09-12 09:34 | PDOC ---
Provider Note Provider Note discharge summary dictated # [id number] MOR MALCOLM MD Sep 12, 2016 09:34
[2016-09-12] MEDS: METOPROLOL SUCC 24HR ER 25 MG TAB.ER.24H. PO SCH (09:35)
[2016-09-12] MEDS: SERTRALINE 50 MG TABLET. PO SCH (09:35)
--- NOTE | 2016-09-12 09:35 | DISCH ---
DISCHARGE INSTRUCTIONS Condition on Discharge Condition on Discharge: Stable Activity After Discharge Activity Instructions for Disc: Resume previous activity Diet after Discharge Diet after Discharge: Cardiac, Diabetic No Calorie Level Contacting the DRZully after DC Call your doctor for: If your condition worsens Follow-Up Follow up with: dr. malcolm next week MOR MALCOLM MD Sep 12, 2016 09:35
[2016-09-12] MEDS ORDERED: AMOX1TAB11 PO (09:38)
[2016-09-12] MEDS ORDERED: LORA0.5T96 PO (09:38)
--- NOTE | 2016-09-12 10:26 | DS ---
DATE OF DISCHARGE: 09/12/2016 CONSULTANTS: Dr. Longoria, Dr. Hale and the dining service inspector. FINAL DIAGNOSES: 1. Acute on chronic diastolic congestive heart failure. 2. Acute on chronic hypoxic respiratory failure. 3. Persistent atrial fibrillation. 4. Metabolic encephalopathy. 5. Moderate right pleural effusion. 6. Diabetes mellitus type 2 with diabetic nephropathy. 7. Chronic kidney disease stage 3. 8. Coronary artery disease. 9. Acute exacerbation of chronic obstructive pulmonary disease. 10. Pneumonia. 11. Gluteal wound. 12. Hyperlipidemia. 13. Hypertension. PROCEDURE: Right-sided thoracentesis. HOSPITAL COURSE: The patient is a 75-year-old white female with history of chronic diastolic congestive heart failure, chronic hypoxic respiratory failure, maintained on oxygen 3 liters per nasal cannula, has persistent atrial fibrillation maintained on Pradaxa, who also has a history of diabetes mellitus type 2 with diabetic nephropathy with chronic kidney disease stage 3, chronic obstructive pulmonary disease, coronary artery disease, hypertension, hyperlipidemia and gluteal wound followed at the [facility] center who was admitted to [facility] at the Emergency Room on 09/06/2016 with acute onset of shortness of breath. Apparently the daughter states that patient did not take any of her medications since Saturday prior to admission and found the patient nude walking around on the house. She was confused. She was sent by EMT to [facility] where she was noted to be in acute hypoxic respiratory failure and was treated with BiPAP and was noted to have a moderate size right pleural effusion. She had acute on chronic diastolic congestive heart failure and acute on chronic hypoxic respiratory failure as well as acute exacerbation of chronic obstructive pulmonary disease with lung infiltrate consistent with pneumonia. She was weaned off the BiPAP, her metabolic encephalopathy resolved. She had a right-sided pleural effusion that was increasing in size and underwent a right-sided thoracentesis, removal of 1.2 liters of fluid yesterday and the cultures are pending. She was treated with IV antibiotics, seen in consultation by Dr. Walter Hale and Dr. Longoria for Infectious Disease, Dr. Aguilera for pulmonary and the dining service inspector. She was then switched to Augmentin, which will be on for another 7 days. She is doing much better, mental status is back to baseline. She is eating and drinking well. Her blood sugars were running low initially, so we stopped the glimepiride. She is currently off the 1 mg of glimepiride tablet daily. We will monitor blood sugars off of it. She is back on her potassium chloride 20 mEq t.i.d. Her furosemide was increased to 80 mg p.o. on dismissal. She therefore will be dismissed to home on Protonix 40 mg p.o. daily, metoprolol succinate 25 mg p.o. daily, digoxin 125 mcg every day, potassium chloride 20 mEq t.i.d., sertraline 50 mg every day, atorvastatin 20 mg every day, furosemide 80 mg b.i.d., lorazepam 0.5 mg t.i.d. p.r.n., Pradaxa 150 mg b.i.d., Spiriva 1 puff every day, albuterol nebulizer treatments every 4 hours p.r.n., and Augmentin 875 mg b.i.d. for 7 days. She was told to make an appointment to see Dr. Harvey in the office next week. She will be followed by home health. We will check for compliance with medications and continue with wound care at the [facility], pain clinic also. MOR HARVEY MD DR: JOSEMANUEL/harry JOB#: [id number] / [id number]
[2016-09-12 10:58] VITALS: BP 107/55
--- NOTE | 2016-09-12 12:09 | PDOC ---
PULMONARY PROGRESS NOTES Subjective FEELS BETTER AFTER THORACENTESIS Vitals Vital Signs Date Time Temp Pulse Resp B/P (MAP) Pulse Ox O2 Delivery O2 Flow Rate FiO2 09/12/16 10:58 98.1 76 20 107/55 (72) 91 Nasal Cannula 3.0 98.1 ROS: No Nausea, No Chest Pain, No Abdominal Pain, No Increase Cough General: Alert, No acute distress HEENT: Other (nc at perrl) Lungs: Crackles, Other (DECREASE BS RIGHT) Cardiovascular: S1, S2 Abdomen: Soft, Non-tender Neuro Exam: Alert Extremities: No Edema Skin: Warm Labs Laboratory Tests Test 09/10/16 16:56 09/10/16 20:49 09/11/16 04:20 09/11/16 08:09 Glucose (Fingerstick) 142 mg/dL (70-99) 120 mg/dL (70-99) 112 mg/dL (70-99) White Blood Count 11.1 x10^3/uL (4.0-11.0) Red Blood Count 4.83 x10^6/uL (3.50-5.40) Hemoglobin 10.9 g/dL (12.0-15.5) Hematocrit 37.4 % (36.0-47.0) Mean Corpuscular Volume 77 fL (79-100) Mean Corpuscular Hemoglobin 23 pg (25-35) Mean Corpuscular Hemoglobin Concent 29 g/dL (31-37) Red Cell Distribution Width 21.0 % (11.5-14.5) Platelet Count 97 x10^3/uL (140-400) Neutrophils (%) (Auto) 86 % (31-73) Lymphocytes (%) (Auto) 7 % (24-48) Monocytes (%) (Auto) 6 % (0-9) Eosinophils (%) (Auto) 1 % (0-3) Basophils (%) (Auto) 0 % (0-3) Neutrophils # (Auto) 9.4 x10^3uL (1.8-7.7) Lymphocytes # (Auto) 0.8 x10^3/uL (1.0-4.8) Monocytes # (Auto) 0.7 x10^3/uL (0.0-1.1) Eosinophils # (Auto) 0.1 x10^3/uL (0.0-0.7) Basophils # (Auto) 0.0 x10^3/uL (0.0-0.2) Sodium Level 145 mmol/L (136-145) Potassium Level 3.6 mmol/L (3.5-5.1) Chloride Level 106 mmol/L (98-107) Carbon Dioxide Level 33 mmol/L (21-32) Anion Gap 6 (6-14) Blood Urea Nitrogen 10 mg/dL (7-20) Creatinine 0.9 mg/dL (0.6-1.0) Estimated GFR (Cockcroft-Gault) 60.7 Glucose Level 111 mg/dL (70-99) Calcium Level 9.4 mg/dL (8.5-10.1) Test 09/11/16 09:00 09/11/16 11:52 09/11/16 16:42 09/11/16 20:47 Body Fluid Source Pleural Body Fluid Color Yellow Body Fluid Clarity Hazy Body Fluid pH 7.5 Body Fluid Nucleated Cells /cmm Body Fluid Mononuclear WBCs (%) 43 % Body Fluid Polymorphonuclear Cells 40 % Body Fluid Total RBCs Counted /cmm Body Fluid Other Cells (%) 17 % Glucose (Fingerstick) 130 mg/dL (70-99) 110 mg/dL (70-99) 147 mg/dL (70-99) Test 09/12/16 03:00 09/12/16 07:34 09/12/16 10:12 Sodium Level 146 mmol/L (136-145) Potassium Level 3.5 mmol/L (3.5-5.1) Chloride Level 107 mmol/L (98-107) Carbon Dioxide Level 35 mmol/L (21-32) Anion Gap 4 (6-14) Blood Urea Nitrogen 12 mg/dL (7-20) Creatinine 0.9 mg/dL (0.6-1.0) Estimated GFR (Cockcroft-Gault) 60.7 Glucose Level 105 mg/dL (70-99) Calcium Level 8.8 mg/dL (8.5-10.1) Magnesium Level 2.2 mg/dL (1.8-2.4) Glucose (Fingerstick) 108 mg/dL (70-99) 186 mg/dL (70-99) Laboratory Tests Test 09/11/16 16:42 09/11/16 20:47 09/12/16 03:00 09/12/16 07:34 Glucose (Fingerstick) 110 mg/dL (70-99) 147 mg/dL (70-99) 108 mg/dL (70-99) Sodium Level 146 mmol/L (136-145) Potassium Level 3.5 mmol/L (3.5-5.1) Chloride Level 107 mmol/L (98-107) Carbon Dioxide Level 35 mmol/L (21-32) Anion Gap 4 (6-14) Blood Urea Nitrogen 12 mg/dL (7-20) Creatinine 0.9 mg/dL (0.6-1.0) Estimated GFR (Cockcroft-Gault) 60.7 Glucose Level 105 mg/dL (70-99) Calcium Level 8.8 mg/dL (8.5-10.1) Magnesium Level 2.2 mg/dL (1.8-2.4) Test 09/12/16 10:12 Glucose (Fingerstick) 186 mg/dL (70-99) Medications Active Scripts Medications Dose Route/Sig Max Daily Dose Days Date Category Lorazepam 0.5 Mg Tablet 0.5 Mg PO TID 09/06/16 Reported Furosemide 80 Mg Tablet 1 Tab PO BID 30 08/18/16 Rx Amaryl (Glimepiride) 2 Mg Tablet 1 Mg PO DAILY 30 08/18/16 Rx Klor-Con M20 (Potassium Chloride) 20 Meq Tab.er.prt 20 Meq PO TIDWMEALS 30 07/18/16 Rx Sertraline Hcl 50 Mg Tablet 50 Mg PO DAILY 30 07/18/16 Rx Spiriva (Tiotropium Concrete) 18 Mcg Cap.w.dev 1 Cap IH DAILY 09/27/15 Rx Pradaxa (Dabigatran Etexilate Mesylate) 150 Mg Capsule 150 Mg PO BID 09/27/15 Rx Protonix (Pantoprazole Sodium) 40 Mg Tablet.dr 1 Tab PO DAILYAC 04/18/15 Reported NITROGLYCERIN SubLingual (Nitroglycerin) 0.4 Mg Tab.subl 0.4 Mg SL PRN Q5MIN PRN 04/18/15 Reported Metoprolol Tartrate 25 Mg Tablet 1 Tab PO DAILY 04/18/15 Reported Lipitor (Atorvastatin Calcium) 20 Mg Tablet 20 Mg PO HS 04/18/15 Reported Albuterol Sulfate Neb Soln (Albuterol Sulfate) 2.5 Mg/3 Ml Vial.neb 1 Vial NEB PRN Q4HRS PRN 04/18/15 Reported Digoxin 125 Mcg Tablet 1 Tab PO DAILY 04/10/15 Reported Comments CXR REVIEW INCREASING FLUID Impression . 1. Acute on chronic respiratory failure. 2. Abnormal cxr 3. Leukocytosis. 4. Acute exacerbation of chronic obstructive pulmonary disease. 5. Acute on chronic diastolic heart failure. 6. Coronary artery disease. 7. Chronic atrial fibrillation. 8. Elevated troponin. 9. Hypertension. Plan . D/C IN AM OK BY ME FOLLOW UP ON CYTOLOGY PRN GAYLE OLIVARES MD Sep 12, 2016 12:09
[2016-09-12] MEDS: LORazepam 0.5 MG TABLET PO PRN (13:03)
--- NOTE | 2016-09-12 17:26 | PATHOLOGY ---
CYTOPATHOLOGY REPORT CLINICAL HISTORY: Right pleural effusion. SPECIMEN(S) RECEIVED: A.Pleural fluid, Right FINAL DIAGNOSIS: Right pleural fluid, ThinPrep and cell block: - No malignant cells identified. - Focally reactive mesothelial cells and few inflammatory cells identified. (JPM:mgr; 09/12/2016) PATHOLOGIST: Humberto Hector M.D. REPORT ELECTRONICALLY SIGNED BY: Humberto Hector M.D. DATE/TIME: 09/12/2016 17:26 GROSS PATHOLOGY: A. Pleural fluid, Right: The specimen is submitted unfixed, labeled "Sravani Little". Received by the Cytology Department is 25 mL of clear yellow fluid. One ThinPrep slide and a cell block were prepared. (clt 09.11.2016) WATERPROOFING MACHINE OPERATOR(S): DONNA Winkler(ASCP) INITIAL CPT CODE(S): A; 50364, 34445 Professional services performed [place] [facility] [address] Technical services performed by [facility] at [address] [place] [address], [address], [place] [address]. PATIENT: SRAVANI LITTLE /AGE: 10 1940 (Age: 75) SEX: F PATIENT #: [id number] ALT CASE #: SPECIMEN COLLECTION DATE: 09/06/2016 SPECIMEN RECEIVED DATE: 09/11/[address] [facility] [address] [place] [address], [address] [place] [address] PHONE: [phone] DIRECTOR: Anuel Ram M.D. * * * END OF REPORT * * *
== END 2016-09-12 14:00 | disposition home health service (06) | DRG 291 ==
LOC: ER 10:02 → 1 WEST ICU 11:00 → 2 SOUTH 09-08 18:43
PROVIDERS: ADMIT Internal Medicine; ATTEND Internal Medicine
PROC: 5A09457 Assistance with Respiratory Ventilation, 24-96 Consecutive Hours, Continuous Positive Airway Pressure (ICD-10-PCS; 2016-09-06)
PROC: 0W9930Z Drainage of Right Pleural Cavity with Drainage Device, Percutaneous Approach (ICD-10-PCS; principal; 2016-09-11)
DX: I13.0 Hypertensive heart and chronic kidney disease with heart failure and stage 1 through stage 4 chronic kidney disease, or unspecified chronic kidney disease (principal); G93.41 Metabolic encephalopathy; J96.22 Acute and chronic respiratory failure with hypercapnia; I50.33 Acute on chronic diastolic (congestive) heart failure; J18.9 Pneumonia, unspecified organism; J96.21 Acute and chronic respiratory failure with hypoxia; J90 Pleural effusion, not elsewhere classified; E87.0 Hyperosmolality and hypernatremia; G93.1 Anoxic brain damage, not elsewhere classified; I48.1 Persistent atrial fibrillation; J44.0 Chronic obstructive pulmonary disease with (acute) lower respiratory infection; J44.1 Chronic obstructive pulmonary disease with (acute) exacerbation; E11.21 Type 2 diabetes mellitus with diabetic nephropathy; E11.22 Type 2 diabetes mellitus with diabetic chronic kidney disease; E11.42 Type 2 diabetes mellitus with diabetic polyneuropathy; E11.43 Type 2 diabetes mellitus with diabetic autonomic (poly)neuropathy; E78.00 Pure hypercholesterolemia, unspecified; E78.5 Hyperlipidemia, unspecified; F17.210 Nicotine dependence, cigarettes, uncomplicated; I25.10 Atherosclerotic heart disease of native coronary artery without angina pectoris; I27.2 Other secondary pulmonary hypertension; I27.81 Cor pulmonale (chronic); I48.2 Chronic atrial fibrillation; I73.9 Peripheral vascular disease, unspecified; K21.9 Gastro-esophageal reflux disease without esophagitis; K31.84 Gastroparesis; M81.0 Age-related osteoporosis without current pathological fracture; N18.3 Chronic kidney disease, stage 3 (moderate); E55.9 Vitamin D deficiency, unspecified; M54.5 Low back pain; M19.90 Unspecified osteoarthritis, unspecified site; R91.8 Other nonspecific abnormal finding of lung field; Z66 Do not resuscitate; I25.2 Old myocardial infarction; Z79.01 Long term (current) use of anticoagulants; Z79.84 Long term (current) use of oral hypoglycemic drugs; Z79.899 Other long term (current) drug therapy; Z80.9 Family history of malignant neoplasm, unspecified; Z82.49 Family history of ischemic heart disease and other diseases of the circulatory system; Z83.3 Family history of diabetes mellitus; Z86.14 Personal history of Methicillin resistant Staphylococcus aureus infection; Z90.49 Acquired absence of other specified parts of digestive tract; Z91.19 Patient's noncompliance with other medical treatment and regimen; Z95.5 Presence of coronary angioplasty implant and graft; Z99.81 Dependence on supplemental oxygen; Z85.038 Personal history of other malignant neoplasm of large intestine; Z98.49 Cataract extraction status, unspecified eye; Z90.710 Acquired absence of both cervix and uterus; Z95.820 Peripheral vascular angioplasty status with implants and grafts; Z88.6 Allergy status to analgesic agent; Z88.8 Allergy status to other drugs, medicaments and biological substances
CPT/HCPCS: 32555; 36415; 36600; 71010; 71020; 71250; 72131; 72192; 72220; 80048; 80053; 80162; 80202; 81001; 82805; 82962; 83605; 83615; 83735; 83880; 83986; 84157; 84484; 85007; 85027; 85610; 87071; 87075; 87205; 87641; 88112; 88305; 89050; 93005; 93306; 94640; 94660; 94760; 96361; 96365; 96375; C1887; C1892; J1815; J1940; J1956; J2543; J2930; J3370; J7040; J7050; J7613; J7620; 97116; 97530; 99291-25; J7030